=== PATIENT | female | born 1940 | race Caucasian/White ===

== ENCOUNTER 2016-12-22 08:37 | Observation (INO) | payer OTHER ==
[2016-12-22 08:54] LABS: % IMMATURE GRANULYOCYTES 0.5 % (0.0-1.1); ABSOLUTE IMMATURE GRANULOCYTES 0.05 10^3/uL (0.00-0.10); ADD DIFF? NO; ADD MORPH? NO; ADD SCAN? NO; ATYPICAL LYMPHOCYTE FLAG 0 (0-99); FRAGMENT RBC FLAG 0 (0-99); HEMATOCRIT 36.5 % (38.0-47.0); HEMOGLOBIN 11.7 g/dL (12.6-16.3); LEFT SHIFT FLG 10 (0-99); LIPEMIA HEMOLYSIS FLAG 80 (0-99); MEAN CELL HEMOGLOBIN 29.3 pg (27.9-34.1); MEAN CELL HEMOGLOBIN CONCENTR. 32.1 g/dL (32.4-36.7); MEAN CELL VOLUME 91.5 fL (81.5-99.8); MEAN PLATELET VOLUME 9.4 fL (8.7-11.7); PLATELET CLUMPS FLAG 10 (0-99); PLATELET COUNT 247 10^3/uL (150-400); RED BLOOD CELL COUNT 3.99 10^6/uL (4.18-5.33); RED CELL DISTRIBUTION WIDTH 13.6 % (11.5-15.2)
--- NOTE | 2016-12-22 09:00 | CPEKG ---
Heart Rate: 88 RR Interval: 682 P-R Interval: 264 QRSD Interval: 84 QT Interval: 360 QTC Interval: 436 P [place]: 53 QRS [place]: 8 T Wave [place]: 72 EKG Severity - ABNORMAL ECG - EKG Impression: SINUS RHYTHM EKG Impression: ATRIAL PREMATURE COMPLEX EKG Impression: FIRST DEGREE AV BLOCK Electronically Signed By: Karl Pederson 22-Dec-2016 12:12:57
--- NOTE | 2016-12-22 09:01 | EDPHY ---
H & P Stated Complaint: R Hip Pain Time Seen by Provider: 12/22/16 08:59 HPI/ROS: CHIEF COMPLAINT: Right hip pain HISTORY OF PRESENT ILLNESS: The patient presents to the ED with complaints of right hip pain. The patient reportedly was bothered by the pain in the afternoon yesterday. She reportedly had 3 episodes in the evening where she reportedly was on the floor. She is uncertain whether she fell. Since that time she has had ongoing right posterior gluteal pain. She is having difficulty with ambulation. The patient does have a history of chronic pain and has a spinal stimulator. The patient denies any headache, head trauma, anticoagulant use or additional traumatic injury. The patient's pain is located in the right posterior gluteal area and is worsened with palpation and movement. REVIEW OF SYSTEMS: A comprehensive 10 point review of systems is otherwise negative aside from elements mentioned in the history of present illness. Source: Patient Exam Limitations: No limitations - Personal History Tetanus Vaccine Date: 2008 - Medical/Surgical History Hx Asthma: No Hx Chronic Respiratory Disease: Yes Hx Diabetes: No Hx Cardiac Disease: No Hx Renal Disease: No Hx Cirrhosis: No Hx Alcoholism: No Hx HIV/AIDS: No Hx Splenectomy or Spleen Trauma: No Other PMH: lung disease, chronic back pain2 depression - Social History Smoking Status: Former smoker - Physical Exam Exam: General Appearance: Alert, no distress, mildly obese female Eyes: Pupils equal and round no pallor or injection ENT, Mouth: Mucous membranes moist Respiratory: There are no retractions, lungs are clear to auscultation Cardiovascular: Regular rate and rhythm Gastrointestinal: Abdomen is soft and nontender, no masses, bowel sounds normal Neurological: A&O, normal motor function, normal sensory exam, normal cranial nerves Skin: Warm and dry, no rashes Musculoskeletal: Neck is supple nontender Extremities: Tenderness to palpation right gluteal area, I am able to range her right hip passively without significant discomfort Constitutional: Initial Vital Signs Temperature (C) 37.2 C 12/22/16 08:48 Heart Rate 89 12/22/16 08:48 Respiratory Rate 18 12/22/16 08:48 Blood Pressure 117/72 12/22/16 08:48 O2 Sat (%) 91 L 12/22/16 08:48 O2 Delivery Mode Nasal Cannula O2 (L/minute) 2 Allergies/Adverse Reactions: morphine Allergy (Intermediate, Verified 11/06/12 02:13) Vomiting tramadol [Tramadol] Allergy (Unknown, Verified 04/12/12 02:13) Unknown Home Medications: Medication Instructions Recorded Aspirin [Aspirin 81mg (*)] 81 mg PO DAILY 04/12/12 Cholecalciferol Vit D3 [Vitamin D3 1,000 units PO DAILY 04/12/12 (*)] Hydrochlorothiazide [HCTZ (*)] 25 mg PO DAILY 04/12/12 Lisinopril [Zestril 10 mg (*)] 10 mg PO DAILY 04/12/12 Multivitamins [Multivitamin (*)] 1 each PO DAILY 04/12/12 [place]-3 Fatty Acids [Fish Oil 1000 1,000 mg PO DAILY 04/12/12 mg (*)] ALPRAZolam [Xanax 1 MG (*)] 1 mg PO Q8 PRN #90 tab 04/27/12 LORazepam [Ativan (*)] 1 mg PO 0700,1230,1700,2100 #120 04/27/12 tab Sertraline HCl [Zoloft 100mg (*)] 200 mg PO HS #60 tab 04/27/12 Zolpidem Tartrate [Ambien 5MG (*)] 10 mg PO HS #10 tab 04/27/12 hydrOXYzine HCL [Vistaril 25MG] 25 mg PO HS #10 tab 04/27/12 oxyCODONE CR [Oxycontin] 10 mg PO TID #30 tab 04/27/12 oxyCODONE IR [Oxycodone Ir (*)] 10 mg PO Q6 PRN #10 tab 04/27/12 Amoxicillin 500 mg PO TID 7 Days 03/22/15 MYCOPHENOLATE MOFETIL 03/22/15 Ondansetron Odt [Zofran Odt] 4 mg PO Q4PRN PRN #4 tab 03/22/15 Medical Decision Making - Diagnostics EKG Interpretation: EKG: Complete interpretation has been separately recorded in the [facility] archive. Summary impression: Sinus rhythm, first-degree AV block, single PAC Imaging Results: Imaging Impressions Chest X-Ray 12/22/16 08:47 Impression: 1. Age indeterminate right seventh rib fracture is new since August 2015. 2. No effusion or pneumothorax. Hip X-Ray 12/22/16 08:47 Impression: No displaced fracture identified. Pelvis CT 12/22/16 09:55 Impression: 1. No fracture identified. 2. Sigmoid diverticulosis. 3. Moderate to severe left L4-L5 neural foraminal stenosis. 4. Additional findings as above. Findings discussed with Karl Pederson on December 22, 2016 at 10:30 a.m. ED Course/Re-evaluation: The patient presents to the ED with complaints of acute right hip and gluteal pain following a likely mechanical fall from her bed last night. The patient did not strike her head or lose consciousness. In the emergency department she has a normal neurologic examination without any focal cervical spine tenderness to palpation. The patient was taken for plain film of her right hip which demonstrated no obvious fracture. Given her ongoing pain and discomfort a CT scan was performed which also demonstrates no obvious fracture. The patient did receive IV pain medications. She had serial examinations x3 over a 2 hour period by myself in the ED. The patient continues to have exquisite pain with active range of motion which I feel is most likely consistent with a myofascial strain involving her right hip. She is unable to safely ambulate. She will require admission to the hospital. Consultation is made with the hospitalist service at 11:00 a.m.. The patient will be admitted by Dr. Reji Quan. Differential Diagnosis: Differential diagnosis considered includes hip fracture, acetabular fracture, neurovascular injury, retroperitoneal hematoma, gluteal hematoma - Data Points Laboratory Results: Laboratory Results 12/22/16 08:49 12/22/16 08:49 12/22/16 12/22/16 12/22/16 08:49 08:49 08:49 WBC 10.40 10^3/uL H 10^3/uL (3.80-9.50) RBC 3.99 10^6/uL L 10^6/uL (4.18-5.33) Hgb 11.7 g/dL L g/dL (12.6-16.3) Hct 36.5 % L % (38.0-47.0) MCV 91.5 fL fL (81.5-99.8) MCH 29.3 pg pg (27.9-34.1) MCHC 32.1 g/dL L g/dL (32.4-36.7) RDW 13.6 % % (11.5-15.2) Plt Count 247 10^3/uL 10^3/uL (150-400) MPV 9.4 fL fL (8.7-11.7) Neut % (Auto) 77.8 % H % (39.3-74.2) Lymph % (Auto) 8.3 % L % (15.0-45.0) [place] % (Auto) 12.6 % % (4.5-13.0) Eos % (Auto) 0.6 % % (0.6-7.6) Baso % (Auto) 0.2 % L % (0.3-1.7) Nucleat RBC Rel Count 0.0 % % (0.0-0.2) Absolute Neuts (auto) 8.10 10^3/uL H 10^3/uL (1.70-6.50) Absolute Lymphs (auto) 0.86 10^3/uL L 10^3/uL (1.00-3.00) Absolute Monos (auto) 1.31 10^3/uL H 10^3/uL (0.30-0.80) Absolute Eos (auto) 0.06 10^3/uL 10^3/uL (0.03-0.40) Absolute Basos (auto) 0.02 10^3/uL 10^3/uL (0.02-0.10) Absolute Nucleated RBC 0.00 10^3/uL 10^3/uL (0-0.01) Immature Gran % 0.5 % % (0.0-1.1) Immature Gran # 0.05 10^3/uL 10^3/uL (0.00-0.10) PT 13.5 SEC SEC (12.0-15.0) INR 1.04 (0.83-1.16) Sodium 139 mEq/L mEq/L (134-144) Potassium 3.9 mEq/L mEq/L (3.5-5.2) Chloride 105 mEq/L mEq/L (97-110) Carbon Dioxide 21 mEq/l L mEq/l (22-31) Anion Gap 13 mEq/L mEq/L (8-16) BUN 16 mg/dL mg/dL (7-23) Creatinine 0.9 mg/dL mg/dL (0.6-1.0) Estimated GFR > 60 Glucose 109 mg/dL H mg/dL (70-100) Calcium 9.0 mg/dL mg/dL (8.5-10.4) Medications Given: Discontinued Medications Hydromorphone HCl (Dilaudid) 0.5 mg IVP EDNOW ONE Stop: 12/22/16 09:22 Last Admin: 12/22/16 09:22 Dose: 0.5 mg Departure - Departure Disposition: [facility] Inpatient Acute Clinical Impression: Strain of right hip Condition: Good Referrals: Patient,NotPresent [Primary Care Provider] - As per Instructions
[2016-12-22 09:08] LABS: ANION GAP 13 mEq/L (8-16); CARBON DIOXIDE 21 mEq/l (22-31); CHLORIDE 105 mEq/L (97-110); CREATININE 0.9 mg/dL (0.6-1.0); GLOMERULAR FILTRATION RATE > 60; GLUCOSE 109 mg/dL (70-100); POTASSIUM 3.9 mEq/L (3.5-5.2); SODIUM 139 mEq/L (134-144)
[2016-12-22] MEDS ORDERED: HYDROmorphONE/DILAUDID 1 MG/ML SYR ONE (09:17)
[2016-12-22 09:19] LABS: INR 1.04 (0.83-1.16); PROTIME(PATIENT) 13.5 SEC (12.0-15.0)
[2016-12-22] MEDS ORDERED: HYDROmorphONE/DILAUDID 1 MG/ML SYR IVP ONE (09:21)
[2016-12-22] MEDS ORDERED: ONDANSETRON DISINTEGRATING 4 MG TAB PO PRN ×2 (13:40→13:43)
[2016-12-22] MEDS ORDERED: ONDANSETRON 4 MG/2 ML VIAL IVP PRN (13:43)
--- NOTE | 2016-12-22 14:37 | GHP ---
[f rep st] HISTORY AND PHYSICAL DATE OF ADMISSION: 12/22/2016 CHIEF COMPLAINT: Right gluteal and hip pain. HISTORY OF PRESENT ILLNESS: Fabby Man is a 76-year-old female with a past medical history of gait instability with a fall in 2011, serotonin syndrome, lumbar disk surgery and interstitial lung disease who presented to the emergency room with complaints of pain, mainly in the right gluteal area. The pain started yesterday afternoon. She had 3 falls that occurred over the past 24 hours. She attributes it that she lost her balance due to the pain. She was walking to her bed and hit the corner of the bed. She hit the left side of her head. She did not lose any consciousness. She describes lying on the floor and crying in pain. She had tried some leftover hydrocodone from her previous surgery as well as Tylenol and ice, but none of these alleviated her symptoms. During my interview today, her pain is persisting. I am able to reproduce it with pressing on the right gluteal area. For the past 2 months she has been having increasing nausea and diarrhea. She attributes it to a new medication she was started on for her interstitial lung disease. She also notes that she has lost approximately 30 pounds since June , but this was intended weight loss. She had been on Weight [employer]. She has no complaints of chest pain. She has chronic shortness of breath due to her interstitial lung disease. She has no urinary or stool incontinence. She has no fever. No chills. During my interview, she is comfortable as long as she does not move very much because the pain increases. PAST MEDICAL HISTORY: 1. Chronic back pain with a pain stimulator in place. 2. History of gait instability with a fall in 2001. 3. Rib fractures noted on the right side. 4. Serotonin syndrome in January of 2012. 5. Major depressive disorder. 6. History of opioid and benzodiazepine dependence. 7. Hypertension. 8. Peripheral neuropathy. 9. Hyperlipidemia. 10. History of a transient ischemic attack. 11. Anxiety. 12. Interstitial lung disease. Is seen at [facility] by Dr. John Piedra. PAST SURGICAL HISTORY: 1. Hernia repair. 2. Two sections. 3. Lumbar disk surgery. FAMILY HISTORY: Her parents are . SOCIAL HISTORY: She has 2 children. She has a daughter locally and a son in the [place] area. She is . She briefly smoked for approximately 6 years when she was in her late 20s and early 30s. She drinks approximately 3 alcoholic drinks a week. 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 ALLERGIES: Morphine causes nausea but not a true allergy. HOME MEDICATIONS: 1. Trazodone 100 mg p.o. at bedtime. 2. Wellbutrin 150 mg daily. 3. Paxil 20 mg daily. 4. Zofran ODT 4 mg daily p.r.n. 5. Fish oil 1000 mg daily. 6. Multivitamins 1 tab daily. 7. Zestril 10 mg daily at noon. 8. Ativan 1 mg p.o. daily. 9. Herbal supplements 1 tab daily. 10. Vitamin D 3000 units daily. 11. Aspirin 81 mg daily. 12. Xanax 1 mg p.o. q.h.s. REVIEW OF SYSTEMS: A 10-point review of system was performed and was negative other than pertinent positives in HPI and past medical history. PHYSICAL EXAM: GENERAL: Fabby Man is a 76-year-old female who appears uncomfortable during my interview. VITAL SIGNS: Blood pressure is 133/80, heart rate is 95, respiratory rate is 15, O2 sats on room air are 91%, temperature is 36.7 Celsius. EYES: Pupils are equal and reactive EOMs are intact. No conjunctival injection noted. ENT: Normal ears. Hearing intact. Normal lips, teeth. Oral airway is moist. NECK: Trachea is midline. CARDIOVASCULAR: Regular rate and rhythm. No murmurs, rubs, or gallops noted. CHEST: Lungs normal respiratory effort. Clear without wheezing, rales, rhonchi. ABDOMEN: Soft, nontender. SKIN: No rashes, ulcer. MUSCULOSKELETAL : She is unable to do a straight leg lift with her right leg but is able to do this with her left leg. She has equal upper leg strength. She has frequent twitching to her bilateral lower extremities. PSYCHIATRIC: She is alert and oriented. NEURO: Normal mood and affect. Normal judgment, insight, and normal memory. LABORATORY DATA: CBC shows a white blood cell count of 10.4, hemoglobin 11.7, hematocrit 36.5, platelet count of 247. Coags: INR is 1.04. Chemistry shows a sodium of 139, potassium 3.9, chloride of 105, CO2 of 21, BUN 16 creatinine 0.9, glucose of 109. IMAGIN. A chest x-ray was performed which showed aging indeterminate right 7th rib fracture is new since August of 2015. She has no effusion or pneumothorax. 2. ECG was performed which showed sinus rhythm with a first degree AV block. 3. Hip x-ray on the right side shows no displaced fracture identified. 4. A CT of the pelvis shows no fracture identified. She has sigmoid diverticulitis. She has moderate to severe left L4-L5 neural foraminal stenosis. I reviewed her care with Dr. Ezio Pederson, ER physician. ASSESSMENT/PLAN: 1. Right gluteal pain, especially noted in the piriformis area. She has moderate to severe left L4-L5 neuroforaminal stenosis which does not correlate to the pain being on the right side. Will get x-rays performed for further evaluation. At this time, she cannot have an MRI because she has a pain stimulator in place. Could consider getting a CT scan if pain is ongoing. Will do a trial of gabapentin, Lidoderm patches, ibuprofen and ice. Will have physical therapy and occupational therapy. 2. Gait instability with multiple falls. Again, we will have Physical Therapy and Occupational Therapy see her. Will check a CPK just in case she has any type of rhabdomyolysis. 3. Depression with anxiety. This is well managed. Will resume her home medications. 4. Hypertension. On Lisinopril. 5. History of opioid narcotic use. Will avoid using these medications. 6. Interstitial lung disease. She is seen at [facility]. Further followup with them. 7. Deep venous thrombosis prophylaxis. At this time. We will hold low molecular weight heparin in case she gets any interventions. 8. Length of stay. She will likely require less than a 2 midnight stay which will make her observation status. 9. Code status is do not resuscitate. /[id number]/MODL MTDD
[2016-12-22] MEDS: buPROPion XL 150 MG TAB PO SCH (14:45)
[2016-12-22] MEDS: IBUPROFEN 200 MG TAB PO PRN (14:45)
[2016-12-22] MEDS: LIDOCAINE 5% 1 EA PATCH TD SCH (14:46)
[2016-12-22] MEDS: GABAPENTIN 100 MG CAP PO SCH ×2 (14:46→21:15)
[2016-12-22] MEDS: CHOLECALCIFEROL VIT D3 1,000 UNITS TAB PO SCH (14:49)
[2016-12-22] MEDS: LISINOPRIL 10 MG TAB PO SCH (14:49)
[2016-12-22] MEDS: MULTIVITAMINS 1 EACH TAB PO SCH (14:50)
[2016-12-22] MEDS: OMEGA-3 FATTY ACIDS 1,000 MG CAP PO SCH (14:50)
[2016-12-22] MEDS: PARoxetine HCL 20 MG TAB PO SCH (15:04)
[2016-12-22] MEDS: PATCH REMOVAL 1 EA PATCH TD SCH (21:15)
[2016-12-22] MEDS: ALPRAZolam 1 MG TAB PO PRN (21:18)
[2016-12-23] MEDS ORDERED: NS 1,000 ML IV ONE (00:15)
[2016-12-23] MEDS ORDERED: LORazepam 1 MG TAB PO SCH (09:00)
[2016-12-23] MEDS ORDERED: Herbals/Supplements -Info Only PO SCH (09:00)
[2016-12-23] MEDS: IBUPROFEN 200 MG TAB PO PRN ×3 (09:33→22:29)
[2016-12-23] MEDS: GABAPENTIN 100 MG CAP PO SCH ×3 (09:34→22:30)
[2016-12-23] MEDS: ACETAMINOPHEN 325 MG TAB PO PRN ×3 (09:34→22:27)
[2016-12-23] MEDS: OMEGA-3 FATTY ACIDS 1,000 MG CAP PO SCH (09:35)
[2016-12-23] MEDS: MULTIVITAMINS 1 EACH TAB PO SCH (09:35)
[2016-12-23] MEDS: CHOLECALCIFEROL VIT D3 1,000 UNITS TAB PO SCH (09:35)
[2016-12-23] MEDS: LIDOCAINE 5% 1 EA PATCH TD SCH (09:36)
[2016-12-23] MEDS: PARoxetine HCL 20 MG TAB PO SCH (12:59)
[2016-12-23] MEDS: buPROPion XL 150 MG TAB PO SCH (12:59)
[2016-12-23] MEDS: LISINOPRIL 10 MG TAB PO SCH (13:03)
--- NOTE | 2016-12-23 14:10 | HOSPPROG ---
Hospitalist Progress Note Assessment/Plan: 76 yo F w ILD, chronic back pain w mechanical fall, L gluteal pain fall: mechanical per history denies evening EtOH or intoxicating effect of trazodone films neg for fx continue pt pain: not on narcotics will continue ILD: continue 02 as needed proph: LMWH dispo: likely home in AM Subjective: feels "too weak" to go home. declining SNF. borderline for home, per PT Objective: Vital Signs Temp Pulse Resp BP Pulse Ox 36.7 C 95 13 100/54 L 90 L 12/23/16 11:30 12/23/16 11:30 12/23/16 11:30 12/23/16 13:03 12/23/16 11:30 12/22/16 12/23/16 12/24/16 05:59 05:59 05:59 Intake Total 1000 Balance 1000 PT 13.5 SEC (12.0-15.0) 12/22/16 08:49 INR 1.04 (0.83-1.16) 12/22/16 08:49 - Physical Exam Constitutional: no apparent distress, appears nourished Eyes: PERRL, anicteric sclera Ears, Nose, Mouth, Throat: moist mucous membranes, hearing normal Cardiovascular: regular rate and rhythym, no murmur, rub, or gallop Respiratory: no respiratory distress, no rales or rhonchi Gastrointestinal: normoactive bowel sounds, soft, non-tender abdomen Genitourinary: no bladder fullness, No castellanos in urethra Skin: warm, normal color Musculoskeletal: full muscle strength Neurologic: AAOx3, other (neg R straight leg raise) Psychiatric: interacting appropriately Lymph, Heme, Immunologic: no cervical LAD ICD10 Worksheet Patient Problems: Problems Problem Status Onset ESBL (extended spectrum beta-lactamase) producing bacteria infection Acute ~ Strain of right hip Acute Anxiety Active
[2016-12-23] MEDS: ENOXAPARIN 40 MG/0.4 ML SYR SC SCH (15:04)
[2016-12-23] MEDS: MYCOPHENOLATE MOFETIL 500 MG PO SCH (22:30)
[2016-12-23] MEDS: ALPRAZolam 1 MG TAB PO PRN (22:30)
[2016-12-23] MEDS: PATCH REMOVAL 1 EA PATCH TD SCH (22:36)
[2016-12-24 08:22] VITALS: PULSE 81; RESP 20; TEMP 98.8; O2SAT 92
[2016-12-24] MEDS: OMEGA-3 FATTY ACIDS 1,000 MG CAP PO SCH (08:29)
[2016-12-24] MEDS: LIDOCAINE 5% 1 EA PATCH TD SCH (08:30)
[2016-12-24] MEDS: GABAPENTIN 100 MG CAP PO SCH (08:30)
[2016-12-24] MEDS: ENOXAPARIN 40 MG/0.4 ML SYR SC SCH (08:30)
[2016-12-24] MEDS: MULTIVITAMINS 1 EACH TAB PO SCH (08:31)
[2016-12-24] MEDS: CHOLECALCIFEROL VIT D3 1,000 UNITS TAB PO SCH (08:31)
[2016-12-24] MEDS: MYCOPHENOLATE MOFETIL 500 MG PO SCH (08:34)
--- NOTE | 2016-12-24 10:47 | PDIAF ---
- Diagnosis Diagnosis: fall Code Status: Do Not Resuscitate - Medication Management Discharge Medications: Medications to Continue on Transfer Aspirin [Aspirin 81mg (*)] 81 mg PO DAILY 04/12/12 [Last Taken 12/21/16] Cholecalciferol Vit D3 [Vitamin D3 (*)] 1,000 units PO DAILY 04/12/12 [Last Taken 12/21/16] Lisinopril [Zestril 10 mg (*)] 10 mg PO DAILY@12 04/12/12 [Last Taken 12/21/16] Multivitamins [Multivitamin (*)] 1 each PO DAILY 04/12/12 [Last Taken 12/21/16] [place]-3 Fatty Acids [Fish Oil 1000 mg (*)] 1,000 mg PO DAILY 04/12/12 [Last Taken 12/21/16] ALPRAZolam [Xanax 1 MG (*)] 1 mg PO HS PRN 12/22/16 [Last Taken 12/21/16] Herbals/Supplements -Info Only 1 ea PO DAILY 12/22/16 [Last Taken Unknown] LORazepam [Ativan (*)] 1 mg PO DAILY 12/22/16 [Last Taken 12/21/16] Ondansetron Odt [Zofran Odt 4 mg (*)] 4 mg PO DAILY PRN 12/22/16 [Last Taken Unknown] PARoxetine HCL [Paxil 20mg (*)] 20 mg PO DAILY@12 12/22/16 [Last Taken 12/21/16] buPROPion XL [Wellbutrin 150mg XL] 150 mg PO DAILY@12 12/22/16 [Last Taken 12/21] traZODone [traZODONE 100MG (*)] 100 mg PO HS 12/22/16 [Last Taken 12/21/16] Mycophenolate Mofetil [Cellcept] 1,500 mg PO BID 12/23/16 [Last Taken 12/21/16 21:00] Discharge Medications: Refer to the Discharge Home Medication list for PRN reason. - Orders Services needed: Home Care, Registered Nurse Home Care Face to Face: I certify that this patient was under my care and that I had the required [id number] encounter meeting the encounter requirements on the discharge day. My findings support the fact that the patient is homebound as defined in CMS Chapter 7 Medicare Benefits Manual 30.1.1, The condition of the patient is such that there exists a normal inability to leave home and consequently, leaving home would require a considerable and taxing effort. - Follow Up Care Current Providers and Referrals: Patient,NotPresent [Unknown] - As per Instructions
--- NOTE | 2016-12-24 10:48 | HOSPPROG ---
Hospitalist Progress Note Assessment/Plan: 76 yo F w ILD, chronic back pain w mechanical fall, L gluteal pain fall: mechanical per history denies evening EtOH or intoxicating effect of trazodone films neg for fx continue pt normal neuro exam pain: not on narcotics will continue ILD: continue 02 as needed proph: LMWH dispo: home today > 30 minutes on dc Subjective: afebrile Objective: Vital Signs Temp Pulse Resp BP Pulse Ox 37.1 C 81 20 154/76 H 92 12/24/16 08:00 12/24/16 08:00 12/24/16 08:00 12/24/16 08:00 12/24/16 08:00 12/23/16 12/24/16 12/25/16 05:59 05:59 05:59 Intake Total 1000 350 Balance 1000 350 PT 13.5 SEC (12.0-15.0) 12/22/16 08:49 INR 1.04 (0.83-1.16) 12/22/16 08:49 - Physical Exam Constitutional: no apparent distress, appears nourished Eyes: PERRL, anicteric sclera Ears, Nose, Mouth, Throat: moist mucous membranes, hearing normal Cardiovascular: regular rate and rhythym, no murmur, rub, or gallop Respiratory: no respiratory distress, no rales or rhonchi Gastrointestinal: normoactive bowel sounds, soft, non-tender abdomen Genitourinary: no bladder fullness, No castellanos in urethra Skin: warm, normal color Musculoskeletal: full muscle strength Neurologic: AAOx3 ICD10 Worksheet Patient Problems: Problems Problem Status Onset ESBL (extended spectrum beta-lactamase) producing bacteria infection Acute ~ Strain of right hip Acute Anxiety Active
[2016-12-24] MEDS: buPROPion XL 150 MG TAB PO SCH (11:58)
[2016-12-24] MEDS: LISINOPRIL 10 MG TAB PO SCH (11:58)
[2016-12-24] MEDS: PARoxetine HCL 20 MG TAB PO SCH (11:58)
[2016-12-24 12:36] VITALS: BP 118/79
[2016-12-24] MEDS ORDERED: LORazepam 1 MG TAB PO SCH (21:00)
--- NOTE | 2016-12-24 21:19 | GDS ---
[f rep st] DISCHARGE SUMMARY DISCHARGE DIAGNOSES: 1. Fall. 2. Chronic back pain with stimulator. 3. History of gait instability. Please see admission history and physical by Tiana Bedolla. HOSPITAL COURSE: The patient presented with a fall. She had negative films, including thoracic spi ne x-ray, pelvis CT. She was ambulating with PT and felt to be safe for discharge. She is discharg ed home today. She is discharged home. Home care is established for today. /[id number]/MODL
== END 2016-12-24 13:26 | disposition home or self-care (01) ==
LOC: EDUNIT# → F3N 12:37
PROVIDERS: ADMIT Family Medicine; ATTEND Family Medicine
DX: S76.011A Strain of muscle, fascia and tendon of right hip, initial encounter (principal); W19.XXXA Unspecified fall, initial encounter; Y92.003 Bedroom of unspecified non-institutional (private) residence as the place of occurrence of the external cause; M51.86 Other intervertebral disc disorders, lumbar region; R26.9 Unspecified abnormalities of gait and mobility; J84.9 Interstitial pulmonary disease, unspecified; F41.8 Other specified anxiety disorders; I10 Essential (primary) hypertension; E78.5 Hyperlipidemia, unspecified; G62.9 Polyneuropathy, unspecified; Z96.89 Presence of other specified functional implants
CPT/HCPCS: 71010; 72074; 72110; 72192; 73502; 93005; 96374; 97116; 97161; 97165; 97535; 99285; G0378; G8978; G8979; G8987; J1170; J1650; G8988-GO-CH; G8989-GO-CH

== ENCOUNTER → 2017-02-16 | Outpatient (CLI) | payer OTHER, BC | LOC: BMCIMAGING 16:36 | PROVIDERS: ATTEND Internal Medicine | DX: S32.010A Wedge compression fracture of first lumbar vertebra, initial encounter for closed fracture (principal); W19.XXXA Unspecified fall, initial encounter ==

== ENCOUNTER 2017-02-18 12:04 | Inpatient (IN) | payer OTHER, BC ==
[2017-02-18] MEDS ORDERED: LORazepam 2 MG/ML INJ IVP ONE (12:33)
[2017-02-18 13:17] LABS: ANION GAP 15 mEq/L (8-16); CALCIUM 9.9 mg/dL (8.5-10.4); CARBON DIOXIDE 18 mEq/l (22-31); CHLORIDE 108 mEq/L (97-110); GLOMERULAR FILTRATION RATE 54; GLUCOSE 108 mg/dL (70-100); POTASSIUM 4.2 mEq/L (3.5-5.2); SODIUM 141 mEq/L (134-144)
[2017-02-18 13:20] LABS: % IMMATURE GRANULYOCYTES 0.5 % (0.0-1.1); ABSOLUTE IMMATURE GRANULOCYTES 0.04 10^3/uL (0.00-0.10); ADD DIFF? NO; ADD MORPH? NO; ADD SCAN? NO; ATYPICAL LYMPHOCYTE FLAG 0 (0-99); FRAGMENT RBC FLAG 0 (0-99); HEMATOCRIT 41.2 % (38.0-47.0); HEMOGLOBIN 13.5 g/dL (12.6-16.3); LEFT SHIFT FLG 0 (0-99); LIPEMIA HEMOLYSIS FLAG 80 (0-99); MEAN CELL HEMOGLOBIN 29.9 pg (27.9-34.1); MEAN CELL HEMOGLOBIN CONCENTR. 32.8 g/dL (32.4-36.7); MEAN CELL VOLUME 91.4 fL (81.5-99.8); MEAN PLATELET VOLUME 9.5 fL (8.7-11.7); PLATELET CLUMPS FLAG 0 (0-99); PLATELET COUNT 321 10^3/uL (150-400); RED BLOOD CELL COUNT 4.51 10^6/uL (4.18-5.33); RED CELL DISTRIBUTION WIDTH 13.4 % (11.5-15.2)
--- NOTE | 2017-02-18 13:25 | EDPHY ---
HPI/HX/ROS/PE/MDM Narrative: CHIEF COMPLAINT: Back pain HPI: This patient is a 76 year old female presenting at the request of her neurosurgeon for evaluation of back pain secondary to a fall 02/07/17, eleven days ago. She had a bad fall at her home while the opening door for dog; she lost her balance and fell on her back. She felt severe pain, but did not present for evaluation at that time. Her pain became worse, and she was unable to sleep at night. She visited primary care physician two days ago and x-ray at that time showed a fracture. She presented for evaluation with Dr. Farias, neurosurgeon, and visited his PA today. They recommended she present to the emergency department for myelogram, as she is unable to get an MRI. She is still having considerable pain in her lower back and buttocks, radiating down her right leg. She feels imbalanced. She reports she has had two bad falls in the last year. She denies fever, vomiting, incontinence of bowel or bladder, or other associated symptoms. REVIEW OF SYSTEMS: Aside from elements discussed in the HPI, a comprehensive 10-point review of systems was reviewed and is negative. PMH: Interstitial lung disease, depression, neuropathy SOCIAL HISTORY: Lives in [place]. . PHYSICAL EXAM: General:Patient is alert, in no acute distress. ENT:Eyes are normal to inspection. ENT inspection normal. Neck: Normal inspection. Full range of motion. Respiratory:No respiratory distress. Breath sounds normal bilaterally. Cardiovascular: Regular rate and rhythm. Strong peripheral pulses. Normal cap refill. Abdomen:The abdomen is nontender to palpation. There are no peritoneal signs. There are normal bowel sounds. Back: Normal to inspection. No tenderness to palpation. Skin: Normal color. No rash. Warm and dry. Extremities: Normal appearance. Full range of motion. Neuro: Oriented x3. Normal motor function. Normal sensory function. (Sarmad Weaver) ED Course: 76 year old female presents for evaluation of back pain secondary to a fall and fracture sustained 02/07/17. Plan for labs including CBC, BMP, PTPTT. She is unable to receive an MRI, due to nerve stimulator placement. Plan for myelogram and CT lumbar/cervical spine. Plan to administer 4mg IV Zofran, 1mg IV Ativan, and 1mg IV Dilaudid for symptom relief. 15:[address] Blanco's PA, neurosurgery specialty. 15:10 Patient care transferred to Dr. Gonzalez at shift change. (Sarmad Weaver ) MDM: The patient's myelogram was evaluated by Neurosurgery and they would like to admit and likely perform surgery for her cervical spine tomorrow. (Yfn Gonzalez) - Data Points Imaging Results: Imaging Impressions Cervical Spine CT 02/18/17 12:54 Impression: 1. Multilevel moderate to severe degenerative disk disease from C3-C4 through C6 -C7 and multilevel mild to moderate bilateral facet arthropathy resulting in C4- C5 moderate to severe central canal stenosis and cord compression, and multilevel moderate to severe bilateral neural foraminal stenosis, worse on the right at C3-C4, C4-C5, C5-C6, C6-C7, and on the left at C5-C6. 2. Please see above findings at specific levels. Findings discussed with Emergency Department physician, Dr. Gonzalez, at 1600 hours, 02/18/2017. Final report concurs with initial preliminary interpretation. Lumbar Spine CT 02/18/17 12:54 Impression: 1. L1 mild benign-appearing compression fracture without retropulsion. 2. Multilevel moderate degenerative disk disease worse at L3-L4 and L4-L5 with bilateral facet arthropathy in several levels and L4-L5 and L5-S1 grade 1 anterolisthesis resulting in L4-L5 moderate to severe left neural foraminal stenosis. 3. L1-L2 moderate to severe right neural foraminal stenosis secondary to moderate degenerative disk disease with a right-sided disk bulge and facet arthropathy. 4. Please see above findings at specific levels. Findings and recommendations discussed with Emergency Department physician, Dr. Gonzalez at 1600 hour, 02/18/2017. Final report concurs with initial preliminary interpretation. Myelogram 02/18/17 12:54 Impression: 1. No evidence of complete spinal block. 2. Please see CT myelogram reports. Thoracic Spine CT 02/18/17 12:54 Impression: 1. No evidence of thoracic compression fractures or destructive osseous lesions. 2. Multilevel moderate to severe degenerative disk disease worst from T3-T4 through T5-T6 and from T8-T9 through T10-T11 with multilevel [id number] facet arthropathy. 3. T9-T10: Severe degenerative disk disease and central disk herniation, extrusion, resulting in moderate central canal stenosis, cord compression, and deformity, and moderate to severe bilateral neural foraminal stenosis. Findings discussed with Emergency Department physician, Dr. Gonzalez, at 1600 hours, 02/18/2017. Final report concurs with initial preliminary interpretation. Laboratory Results: Laboratory Results 02/18/17 12:50 02/18/17 12:50 02/18/17 02/18/17 02/18/17 12:50 12:50 12:50 WBC 8.34 10^3/uL 10^3/uL (3.80-9.50) RBC 4.51 10^6/uL 10^6/uL (4.18-5.33) Hgb 13.5 g/dL g/dL (12.6-16.3) Hct 41.2 % % (38.0-47.0) MCV 91.4 fL fL (81.5-99.8) MCH 29.9 pg pg (27.9-34.1) MCHC 32.8 g/dL g/dL (32.4-36.7) RDW 13.4 % % (11.5-15.2) Plt Count 321 10^3/uL 10^3/uL (150-400) MPV 9.5 fL fL (8.7-11.7) Neut % (Auto) 73.4 % % (39.3-74.2) Lymph % (Auto) 16.8 % % (15.0-45.0) [facility] % (Auto) 7.0 % % (4.5-13.0) Eos % (Auto) 1.7 % % (0.6-7.6) Baso % (Auto) 0.6 % % (0.3-1.7) Nucleat RBC Rel Count 0.0 % % (0.0-0.2) Absolute Neuts (auto) 6.13 10^3/uL 10^3/uL (1.70-6.50) Absolute Lymphs (auto) 1.40 10^3/uL 10^3/uL (1.00-3.00) Absolute Monos (auto) 0.58 10^3/uL 10^3/uL (0.30-0.80) Absolute Eos (auto) 0.14 10^3/uL 10^3/uL (0.03-0.40) Absolute Basos (auto) 0.05 10^3/uL 10^3/uL (0.02-0.10) Absolute Nucleated RBC 0.00 10^3/uL 10^3/uL (0-0.01) Immature Gran % 0.5 % % (0.0-1.1) Immature Gran # 0.04 10^3/uL 10^3/uL (0.00-0.10) PT 11.7 SEC L SEC (12.0-15.0) INR 0.87 (0.83-1.16) APTT 26.7 SEC SEC (23.0-38.0) Sodium 141 mEq/L mEq/L (134-144) Potassium 4.2 mEq/L mEq/L (3.5-5.2) Chloride 108 mEq/L mEq/L (97-110) Carbon Dioxide 18 mEq/l L mEq/l (22-31) Anion Gap 15 mEq/L mEq/L (8-16) BUN 25 mg/dL H mg/dL (7-23) Creatinine 1.0 mg/dL mg/dL (0.6-1.0) Estimated GFR 54 Glucose 108 mg/dL H mg/dL (70-100) Calcium 9.9 mg/dL mg/dL (8.5-10.4) Medications Given: Hydromorphone HCl (Dilaudid) 0.2 mg IVP Q2HRS PRN PRN Reason: Pain, Severe Unable to Take PO Stop: 02/28/17 18:23 Last Admin: 02/18/17 20:28 Dose: 0.2 mg Oxycodone HCl (Oxycodone Ir) 5 - 10 mg PO Q3HRS PRN PRN Reason: Pain, Severe Able to Take PO Stop: 02/28/17 18:18 Last Admin: 02/18/17 20:28 Dose: 10 mg Discontinued Medications Hydromorphone HCl (Dilaudid) 1 mg IVP EDNOW ONE Stop: 02/18/17 14:26 Last Admin: 02/18/17 14:35 Dose: 1 mg Hydromorphone HCl (Dilaudid) 1 mg IVP EDNOW ONE Stop: 02/18/17 15:44 Last Admin: 02/18/17 15:50 Dose: 1 mg Lorazepam (Ativan Injection) 1 mg IVP EDNOW ONE Stop: 02/18/17 12:34 Last Admin: 02/18/17 12:47 Dose: 1 mg Methocarbamol (Robaxin) 750 mg PO EDNOW ONE Stop: 02/18/17 18:26 Last Admin: 02/18/17 19:44 Dose: 750 mg Ondansetron HCl (Zofran) 4 mg IVP EDNOW ONE Stop: 02/18/17 14:36 Last Admin: 02/18/17 14:36 Dose: 4 mg General Time Seen by Provider: 02/18/17 13:07 Initial Vital Signs: Initial Vital Signs Temperature (C) 37 C 02/18/17 12:08 Heart Rate 103 H 02/18/17 12:08 Respiratory Rate 18 02/18/17 12:08 Blood Pressure 158/88 H 02/18/17 12:08 O2 Sat (%) 90 L 02/18/17 12:08 O2 Delivery Mode Nasal Cannula O2 (L/minute) 2 Allergies/Adverse Reactions: morphine Allergy (Intermediate, Verified 04/12/12 02:13) Vomiting tramadol [Tramadol] Allergy (Unknown, Verified 04/12/12 02:13) Unknown Home Medications: Medication Instructions Recorded Aspirin [Aspirin 81mg (*)] 81 mg PO DAILY 04/12/12 Cholecalciferol Vit D3 [Vitamin D3 1,000 units PO DAILY 04/12/12 (*)] Lisinopril [Zestril 10 mg (*)] 10 mg PO DAILY@12 04/12/12 Multivitamins [Multivitamin (*)] 1 each PO DAILY 04/12/12 Willard-3 Fatty Acids [Fish Oil 1000 1,000 mg PO DAILY 04/12/12 mg (*)] ALPRAZolam [Xanax 1 MG (*)] 1 mg PO HS PRN 12/22/16 Herbals/Supplements -Info Only 1 ea PO DAILY 12/22/16 LORazepam [Ativan (*)] 1 mg PO DAILY 12/22/16 Ondansetron Odt [Zofran Odt 4 mg 4 mg PO DAILY PRN 12/22/16 (*)] PARoxetine HCL [Paxil 20mg (*)] 20 mg PO DAILY@12 12/22/16 buPROPion XL [Wellbutrin 150mg XL] 150 mg PO DAILY@12 12/22/16 traZODone [traZODONE 100MG (*)] 100 mg PO HS 12/22/16 Mycophenolate Mofetil [Cellcept] 1,500 mg PO BID 12/23/16 Departure - Departure Disposition: [facility] Inpatient Acute Clinical Impression: Back pain Qualifiers: Back pain location: low back pain Chronicity: acute Back pain laterality: bilateral Sciatica presence: with sciatica Sciatica laterality: sciatica laterality unspecified Qualified Code(s): M54.40 - Lumbago with sciatica, unspecified side Condition: Good Report Scribed for: Sarmad Weaver Report Scribed by: Brittany Fontenot Date of Report: 02/18/17 Time of Report: 15:05 Physician Review and Approval Statement: Portions of this note were transcribed by an ED scribe. I personally performed the history, physical exam, and medical decision making; and confirm the accuracy of the information in the transcribed note.
[2017-02-18 13:35] LABS: INR 0.87 (0.83-1.16); PROTIME(PATIENT) 11.7 SEC (12.0-15.0)
[2017-02-18 13:36] LABS: APTT 26.7 SEC (23.0-38.0)
[2017-02-18] MEDS ORDERED: LIDOCAINE 1% 300 MG/30 ML SDV ONE (13:45)
[2017-02-18] MEDS ORDERED: IOPAMIDOL (ISOVUE-M 300) 15 ML VIAL ONE ×2 (13:45→14:45)
[2017-02-18] MEDS ORDERED: HYDROmorphONE/DILAUDID 1 MG/ML INJ IVP ONE ×2 (14:25→15:43)
[2017-02-18] MEDS ORDERED: ONDANSETRON 4 MG/2 ML VIAL ONE (14:27)
[2017-02-18] MEDS ORDERED: ONDANSETRON 4 MG/2 ML VIAL IVP ONE (14:35)
[2017-02-18] MEDS ORDERED: diphenhydrAMINE 25 MG CAP PO PRN (18:19)
[2017-02-18] MEDS ORDERED: ONDANSETRON DISINTEGRATING 4 MG TAB PO PRN (18:19)
[2017-02-18] MEDS ORDERED: ONDANSETRON 4 MG/2 ML VIAL IVP PRN (18:19)
[2017-02-18] MEDS ORDERED: METHOCARBAMOL 750 MG TAB PO ONE (18:25)
--- NOTE | 2017-02-18 18:38 | GCON ---
[f rep st] HISTORY AND PHYSICAL DATE OF CONSULTATION: 02/18/2017 TIME SEEN: The patient was seen and examined in the emergency room at 12:30 p.m. HISTORY OF PRESENT ILLNESS: Patient was seen in the office today and sent to the emergency room for pain control and imaging for her exam findings. The patient is a 76-year-old with a history of a pain stimulator placement 8 years ago with a surgeon in [place]. Her generator is located in her medial left thigh , and she feels her stimulator did very well for her lower back pain for several years. She has not had the need to charge or use her pain stimulator for the last 3 years until recent events. She recently suffered 2 falls with the last one being on February 07. She feels her falls are due to poor balance , and difficulty walking, and trouble with her equilibrium. Since her fall, she has had terrible pain and describes her symptoms as severe pain in her lower back, bilateral buttocks, and extending into her right lateral leg into her foot. She feels that both of her legs are weak, right worse than left, and that she has a wrapping pain around her torso as well. She has some mild tenderness near the L1 region. She has not tried any recent physical therapy or injections. She does take occasional oral steroids for interstitial lung disease, which is managed well by her physicians at [facility]. She does not take any anti-inflammatories. She does rate her low back pain a 10/10 and her leg pain 9/10. She denies any difficulties with her bowel or bladder. REVIEW OF SYSTEMS: A 10-point review of systems was reviewed and negative aside from what was mentioned in the HPI. PAST MEDICAL HISTORY: 1. Interstitial lung disease. 2. Depression. 3. Neuropathy. FAMILY HISTORY: Family history is negative for mother and father for any significant illnesses. SOCIAL HISTORY: The patient does consume alcohol socially. She is a former smoker. Used to smoke a half a pack of cigarettes per day for 5 years, but quit 30 years ago. She does not do any drugs. ALLERGIES: The patient has no known drug allergies. CURRENT MEDICATIONS: 1. Aspirin 81 mg. 2. Vitamin D. 3. Lisinopril. 4. Multivitamins. 5. Gary-3 fatty acids. 6. Xanax. 7. Ativan. 8. Zofran. 9. Paxil. 10. Wellbutrin. 11. Trazodone. 12. CellCept. PHYSICAL EXAM: VITAL SIGNS: The patient's blood pressure is 142/96, heart rate is 71, respiratory rate is 16, oxygen saturation is 95% on 2 L nasal cannula, temperature is 37 degrees Celsius. HEENT: Head is normocephalic and atraumatic. Her pupils are equal, round, reactive to light. EOMI is intact. Full visual prater by confrontation. NECK: Soft without tenderness. She has full range of motion with flexion, extension. RESPIRATORY AND CARDIAC: Deferred. ABDOMEN: Soft and nontender. GENITOURINARY AND RECTAL: Deferred. NEUROLOGIC: The patient is awake, and alert, and oriented to name, place, location, date, time, and situation. Memory is intact to immediate past and current events. Speech no aphasia or dysphonia. Cranial nerves 2-12 are grossly intact. Motor the patient has 5/5 strength in all muscle groups in bilateral upper and lower extremities that includes the deltoids, biceps, triceps, brachioradialis, wrist flexion, extensors, family consumer scientist, intrinsic, fingers, iliopsoas, quadriceps, hamstrings, plantar flexion, dorsiflexion, EHL testing. Her sensation is grossly intact to light touch throughout all dermatomal distributions in bilateral lower extremities. She has negative straight leg raise and negative BELINDA test bilaterally. Her reflexes, her biceps, triceps, and brachioradialis are 2+ out of 4. Her knee jerk and ankle jerks are 4+ with crossed adductor reflexes noted in the bilateral knee. Her toes are downgoing bilaterally. Tejinder sign is negative. Babinski is negative, and there is no evidence of clonus. The patient does have an ataxic unstable gait when asked to perform heel-to-toe walk diagnostics. LABORATORY RESULTS: Platelet count 321, PT is 11.7, INR is 0.78, APTT is 26.7, sodium 141, potassium 4.2, BUN is 25, creatinine 1.0, glucose is 108. CT myelogram performed today of the lumbar spine demonstrates L1 mild benign- appearing compression fracture without retropulsion. She also has multilevel moderate degenerative disk disease, which is worse at C3-4 and C4-5 with bilateral facet arthropathy in several levels, and L4-5 and L5-S1 grade 1 anterolisthesis which results in an L4-5 moderate to severe left neural foraminal stenosis. Thoracic spine CT myelogram performed today demonstrates multilevel moderate to severe advanced degenerative disk disease, which is worse from T3 through T9. At T9-10 she has severe degenerative disc disease and a central disk herniation extrusion, resulting in moderate central canal stenosis with cord compression and deformity, and moderate to severe bilateral neural foraminal stenosis. CT myelogram performed of the cervical spine demonstrates multilevel moderate to severe degenerative disk disease from C3 through C7 and multilevel mild to moderate bilateral facet arthropathy resulting in C4-5 moderate to severe central canal stenosis and cord compression. ASSESSMENT: The patient is a 76-year-old female who was seen in the office today with an acute L1 compression fracture, which was likely from her fall on February 07. Since her fall, she has experienced severe pain in her lower back , down her right lateral leg, and into her bilateral buttocks. X-rays of the lumbar spine demonstrated a mild L1 compression fracture. We will have the patient get fitted for a Jewitt brace for this acute fracture treatment. The patient was myelopathic on exam with crossed adductor reflexes in her bilateral lower extremities, as well as balance issues and ataxic gait. She was sent to the emergency room for pain control and further evaluation of her symptoms. The patient was seen by Dr. Timothy Simpson in the ER as well, who has reviewed all of her imaging, and is recommending an L4-5 intralaminar epidural steroid injection tomorrow with Interventional Radiology at [facility]. We will admit her with our service, and have Interventional Radiology see her tomorrow for an injection. We will also discuss the severity of her cord compression at C4-5, which we would suggest anterior cervical diskectomy and fusion of C4-5 due to the flattening of her spinal cord at that level. We will need to hold her aspirin while she is in the hospital for her upcoming procedures. The patient was seen and examined by myself and Dr. Timothy Simpson in the emergency room on February 18, 2017, at 12:30 p.m. /[id number]/MODL MTDD
[2017-02-18] MEDS ORDERED: METHOCARBAMOL 750 MG TAB ONE (19:05)
[2017-02-18] MEDS: HYDROmorphONE/DILAUDID 1 MG/ML INJ IVP PRN (20:28)
[2017-02-18] MEDS: oxyCODONE IR 5 MG TAB PO PRN (20:28)
[2017-02-19] MEDS: ALPRAZolam 1 MG TAB PO PRN (00:40)
[2017-02-19] MEDS: oxyCODONE IR 5 MG TAB PO PRN ×4 (00:40→19:46)
[2017-02-19] MEDS: NS 1,000 ML IV SCH (00:57)
--- NOTE | 2017-02-19 07:47 | NEUSURGPN ---
Assessment/Plan: 76 yo F s/p fall on 02/07/17 with back pain, L1 compression fx, Lumbar stenosis, Cervical stenosis C45 with myelopathy Plan: -Lumbar KATI today for pain control -Kristel brace when OOB for compression fx -Imaging reviewed with Dr. Simpson. Pt has concerning stenosis at C45 with increased reflexes c/w myelopathy -Have recommended C45 ACDF. Patient is considering her options and risks/ benefits of sx vs no sx were discussed today. Would also consider removing stimulator at time of sx as she does not use it and it precludes her from undergoing MRI. Could also consider L1 kyphoplasty to be done at the same time as the ACDF and stim removal. Sx is tentatively planned for next wednesday -Hold ASA and fish oil in anticipation of surgery -If pt wishes to proceed with sx will require medical clearance -Pain management - continue current regimen -PT/OT -Pt seen and d/w Dr Simpson today -Please call NS with any questions or concerns Subjective: Pt resting in bed, pain is controlled when she rests in bed. Considering her options regarding surgery. Objective: AAOx3 NAD VSS MAEx4 Motor 5/5 BUE/BLE -hoffmans Urinary Catheter in Place: No - Physician Discussed Patient with : Calvin Patient Seen by : [facility] Physical Exam - Vitals, I&O, Labs I and O 02/18/17 02/19/17 02/20/17 05:59 05:59 05:59 Intake Total 687.5 Output Total 200 Balance -200 687.5 Weight 79.379 kg Intake: IV Infused (ml) 687.5 Ns 1,000 ml @ 75 mls/hr 687.5 IV CONT AN Rx#: [id number] Output: Urine (ml) 200 Toilet 200 Other: Number of Voids Toilet 1 Vital Signs Temp Pulse Resp BP Pulse Ox 37.1 C 76 16 141/81 H 85 L 02/19/17 07:30 02/19/17 07:30 02/19/17 07:30 02/19/17 07:30 02/19/17 07:30 ICD10 Worksheet Patient Problems: Problems Problem Status Onset Back pain Acute Anxiety Active ESBL (extended spectrum beta-lactamase) producing bacteria infection Acute ~ Strain of right hip Acute
[2017-02-19] MEDS ORDERED: NON-FORMULARY NEW DRUG (Mycophenolate Mofetil [Cellcept] 1,500 MG) PO SCH (09:00)
[2017-02-19] MEDS ORDERED: MYCOPHENOLATE MOFETIL 250 MG CAP PO SCH (09:30)
[2017-02-19] MEDS: ACETAMINOPHEN 325 MG TAB PO PRN ×3 (10:43→19:45)
--- NOTE | 2017-02-19 11:46 | ASMTCMCOM ---
CM Note CM Note Notes: Patient scheduled for surgery next Wednesday. dishcarged needs to be determined after surgery. CM to follow. Date Signed: 02/19/2017 11:45 AM Electronically Signed By:Maria A Kaur RN
[2017-02-19] MEDS ORDERED: fentaNYL 100 MCG/2 ML INJ ONE ×2 (11:48→12:03)
[2017-02-19] MEDS ORDERED: MIDAZOLAM 2 MG/2 ML VIAL ONE ×2 (11:49→12:03)
[2017-02-19] MEDS ORDERED: TRIAMCINOLONE ACETONIDE 200 MG/5 ML MDV IM ONE (12:24)
[2017-02-19] MEDS ORDERED: IOPAMIDOL (ISOVUE-M 300) 15 ML VIAL ONE (12:24)
[2017-02-19] MEDS ORDERED: LIDOCAINE 1% 300 MG/30 ML SDV ONE (12:25)
--- NOTE | 2017-02-19 12:54 | POSTOPPROG ---
Post Op Note Date of Operation: 02/19/17 Surgeon: Elisha Paul Anesthesia: IV Sedation Pre-op Diagnosis: back pain Post-op Diagnosis: same Indication: severe pain Procedure: Caudal KATI, L2-3 KATI Findings: coverage entire lumbar spine Inf/Abcess present in the surg proc area at time of surgery?: No Depth: Superfical (Skin SQ) EBL: Minimal Complications: None
[2017-02-19] MEDS: buPROPion XL 150 MG TAB PO SCH (13:40)
[2017-02-19] MEDS: LISINOPRIL 10 MG TAB PO SCH (13:41)
[2017-02-19] MEDS: PARoxetine HCL 20 MG TAB PO SCH (13:41)
[2017-02-19] MEDS ORDERED: FLU VACC QS 2017-18 (3YR+)/PF 0.5 ML SYR (FLUARIX QUAD) IM ONE (13:51)
[2017-02-19] MEDS: LORazepam 1 MG TAB PO PRN (21:45)
[2017-02-19] MEDS: traZODone 100 MG TAB PO SCH (21:46)
[2017-02-20] MEDS: oxyCODONE IR 5 MG TAB PO PRN ×3 (01:59→22:23)
[2017-02-20] MEDS: ACETAMINOPHEN 325 MG TAB PO PRN ×3 (02:00→22:23)
--- NOTE | 2017-02-20 08:14 | NEUSURGPN ---
Assessment/Plan: 76 yo F s/p fall on 02/07/17 with back pain, L1 compression fx, Lumbar stenosis, Cervical stenosis C45 with myelopathy Plan: -Lumbar KATI yesterday for pain control. Patient still with soem right sided leg pain but this is improved slightly today. Discussed it can take several days to notice full effect of KATI -Kristel brace when OOB for compression fx Pt has concerning stenosis at C45 with increased reflexes c/w myelopathy. Recommended C45 ACDF. Discussed risks, benefits and alternatives of surgery today. Would also consider removing stimulator at time of sx as she does not use it and it precludes her from undergoing MRI. Could also consider L1 kyphoplasty to be done at the same time as the ACDF and stim removal. Sx is tentatively planned for next wednesday -Hold ASA and fish oil in anticipation of surgery -If pt wishes to proceed with sx will require medical clearance -Pain management - continue current regimen -PT/OT -Please call NS with any questions or concerns Subjective: right gluteal pain and mid back pain Objective: NAD A&Ox3 MAEx4 5/5 and equal in BUE and BLE. - Physician Discussed Patient with : [facility] Physical Exam - Vitals, I&O, Labs I and O 02/19/17 02/20/17 02/21/17 05:59 05:59 05:59 Intake Total 687.5 Output Total 200 Balance -200 687.5 Weight 79.379 kg Intake: IV Infused (ml) 687.5 Ns 1,000 ml @ 75 mls/hr 687.5 IV CONT AN Rx#: [id number] Output: Urine (ml) 200 Toilet 200 Other: Intake Quantity Yes Sufficient Number of Voids Toilet 1 Vital Signs Temp Pulse Resp BP Pulse Ox 36.5 C 75 16 154/91 H 92 02/20/17 04:00 02/20/17 04:00 02/20/17 04:00 02/20/17 04:00 02/20/17 04:00 ICD10 Worksheet Patient Problems: Problems Problem Status Onset Back pain Acute Anxiety Active ESBL (extended spectrum beta-lactamase) producing bacteria infection Acute ~ Strain of right hip Acute
[2017-02-20] MEDS ORDERED: ONDANSETRON DISINTEGRATING 4 MG TAB PO PRN (10:34)
[2017-02-20] MEDS: MYCOPHENOLATE MOFETIL 250 MG CAP PO SCH (10:54)
[2017-02-20] MEDS: lamoTRIgine 100 MG TAB PO SCH (11:47)
[2017-02-20] MEDS: LISINOPRIL 10 MG TAB PO SCH (11:47)
[2017-02-20] MEDS: PARoxetine HCL 20 MG TAB PO SCH (11:48)
[2017-02-20] MEDS: buPROPion XL 150 MG TAB PO SCH (11:48)
[2017-02-20] MEDS ORDERED: BISACODYL 10 MG SUPP PR PRN (11:57)
[2017-02-20] MEDS ORDERED: POLYETHYLENE GLYCOL 3350 17 GM PKT PO PRN (11:57)
[2017-02-20] MEDS ORDERED: MAGNESIUM HYDROXIDE 30 ML UDCUP PO PRN (11:57)
[2017-02-20] MEDS ORDERED: LACTULOSE 20 GM/30 ML UDCUP PO PRN (11:57)
[2017-02-20] MEDS: SENNOSIDES/DOCUSATE SODIUM TAB PO SCH ×2 (14:21→20:11)
--- NOTE | 2017-02-20 15:32 | PDGENHP ---
History and Physical - Chief Complaint Acute buttock pain - History of Present Illness primary care provider: Dr. Sana Hendricks Primary lang interpreter: Dr. John Piedra at [facility] Primary psychiatrist: Dr. Sullivan HPI: 76-year-old female presenting with acute buttock pain characterized as severe, located in her right buttock, associated with bilateral lower extremity weakness, gait imbalance, onset of symptoms approximately 2 weeks ago and duration persistent thereafter. The symptoms have occurred in this context of approximately 2 months of associated gait imbalance and recurrent falls. She presented and was hospitalized in December for her 1st fall, and then in February for her 2nd fall. She reports that she has been falling secondary to gait imbalance. She has also had some associated generalized tremulousness, most notable during the past couple months. She has adjusted her mental health medications, discontinuing mirtazepine, and continuing daytime ativan and HS xanax, which she has been on for years, previously prescribed by Dr. Avalos. Prior to her injuries, she had been able to ambulate up flights of stairs and not get chest pain or exertional shortness of breath. Since her presentation, she has received a lumbar KATI, and she believes that the pain has been somewhat alleviated. History Information - Allergies/Home Medication List Allergies/Adverse Reactions: morphine Allergy (Intermediate, Verified 04/12/12 02:13) Vomiting tramadol [Tramadol] Allergy (Unknown, Verified 04/12/12 02:13) Unknown Home Medications: Aspirin [Aspirin 81mg (*)] 81 mg PO DAILY 04/12/12 [Last Taken 02/17/17] Cholecalciferol Vit D3 [Vitamin D3 (*)] 1,000 units PO DAILY 04/12/12 [Last Taken 02/17/17] Lisinopril [Zestril 10 mg (*)] 10 mg PO DAILY@12 04/12/12 [Last Taken 02/17/17] Multivitamins [Multivitamin (*)] 1 each PO DAILY 04/12/12 [Last Taken 02/17/17] Chadwick-3 Fatty Acids [Fish Oil 1000 mg (*)] 1,000 mg PO DAILY 04/12/12 [Last Taken 02/17/17] ALPRAZolam [Xanax 1 MG (*)] 1 mg PO HS PRN 12/22/16 [Last Taken 02/17/17] LORazepam [Ativan (*)] 1 mg PO DAILY 12/22/16 [Last Taken 02/17/17] Ondansetron Odt [Zofran Odt 4 mg (*)] 4 mg PO DAILY PRN 12/22/16 [Last Taken ] PARoxetine HCL [Paxil 20mg (*)] 20 mg PO DAILY@12 12/22/16 [Last Taken 02/17/17] buPROPion XL [Wellbutrin 150mg XL] 300 mg PO DAILY@12/22/16 [Last Taken 02/17] traZODone [traZODONE 100MG (*)] 100 mg PO HS 12/22/16 [Last Taken 02/17/17] Mycophenolate Mofetil [Cellcept] 1,500 mg PO DAILY 12/23/16 [Last Taken 02/17/17 ] lamoTRIgine [LamICTAL 100 MG (*)] 100 mg PO DAILY 02/19/17 [Last Taken Unknown] I have personally reviewed and updated: family history, medical history, social history, surgical history - Past Medical History hypertension, hyperlipidemia, osteoporosis (per report on recent DEXA) Additional medical history: depression and anxiety w/ chronic benzodiazepine dependency. interstitial lung disease. peripheral neuropathy. serotonin syndrome 2011 - Surgical History Additional surgical history: lumbar KATI. lumbar disc surg. pain stimulator. . hernia - Family History Additional family history: mother w/ TIA, no VTE - Social History Smoking Status: Former smoker Alcohol Use: Occasionally Drug Use: None Additional social history: lives independently Review of Systems Review of Systems: ROS: 10pt was reviewed & negative except for what was stated in HPI & below Constitutional: Reports: weakness Muscolosketal: Reports: back pain Neurological: Reports: anxiety, depressed, tremors Physical Exam Physical Exam: Temp Pulse Resp BP Pulse Ox 36.8 C 82 16 143/89 H 94 02/20/17 08:00 02/20/17 12:19 02/20/17 08:00 02/20/17 12:19 02/20/17 08:00 O2 (L/minute) 2 Constitutional: no apparent distress, chronically ill appearing, obese, uncomfortable Eyes: PERRL, anicteric sclera, EOMI Ears, Nose, Mouth, Throat: moist mucous membranes, hearing normal, ears appear normal, no oral mucosal ulcers Cardiovascular: regular rate and rhythym, no murmur, rub, or gallop, No edema Respiratory: no respiratory distress, no rales or rhonchi, clear to auscultation Gastrointestinal: normoactive bowel sounds, soft, non-tender abdomen, no palpable masses Musculoskeletal: other (tenderness R buttock, lower back, motor 5/5 bilat LE) Neurologic: AAOx3, sensation intact bilaterally, other (intermittently tremulous ), No weakness, No asterixes, No facial droop Psychiatric: not encephalopathic, thought process linear, anxious, depressed Lab Data & Imaging Review 02/18/17 12:50 02/18/17 12:50 WBC 8.34 10^3/uL (3.80-9.50) 02/18/17 12:50 RBC 4.51 10^6/uL (4.18-5.33) 02/18/17 12:50 Hgb 13.5 g/dL (12.6-16.3) 02/18/17 12:50 Hct 41.2 % (38.0-47.0) 02/18/17 12:50 MCV 91.4 fL (81.5-99.8) 02/18/17 12:50 MCH 29.9 pg (27.9-34.1) 02/18/17 12:50 MCHC 32.8 g/dL (32.4-36.7) 02/18/17 12:50 RDW 13.4 % (11.5-15.2) 02/18/17 12:50 Plt Count 321 10^3/uL (150-400) 02/18/17 12:50 MPV 9.5 fL (8.7-11.7) 02/18/17 12:50 Neut % (Auto) 73.4 % (39.3-74.2) 02/18/17 12:50 Lymph % (Auto) 16.8 % (15.0-45.0) 02/18/17 12:50 [place] % (Auto) 7.0 % (4.5-13.0) 02/18/17 12:50 Eos % (Auto) 1.7 % (0.6-7.6) 02/18/17 12:50 Baso % (Auto) 0.6 % (0.3-1.7) 02/18/17 12:50 Nucleat RBC Rel Count 0.0 % (0.0-0.2) 02/18/17 12:50 Absolute Neuts (auto) 6.13 10^3/uL (1.70-6.50) 02/18/17 12:50 Absolute Lymphs (auto) 1.40 10^3/uL (1.00-3.00) 02/18/17 12:50 Absolute Monos (auto) 0.58 10^3/uL (0.30-0.80) 02/18/17 12:50 Absolute Eos (auto) 0.14 10^3/uL (0.03-0.40) 02/18/17 12:50 Absolute Basos (auto) 0.05 10^3/uL (0.02-0.10) 02/18/17 12:50 Absolute Nucleated RBC 0.00 10^3/uL (0-0.01) 02/18/17 12:50 Immature Gran % 0.5 % (0.0-1.1) 02/18/17 12:50 Immature Gran # 0.04 10^3/uL (0.00-0.10) 02/18/17 12:50 PT 11.7 SEC (12.0-15.0) L 02/18/17 12:50 INR 0.87 (0.83-1.16) 02/18/17 12:50 APTT 26.7 SEC (23.0-38.0) 02/18/17 12:50 Sodium 141 mEq/L (134-144) 02/18/17 12:50 Potassium 4.2 mEq/L (3.5-5.2) 02/18/17 12:50 Chloride 108 mEq/L (97-110) 02/18/17 12:50 Carbon Dioxide 18 mEq/l (22-31) L 02/18/17 12:50 Anion Gap 15 mEq/L (8-16) 02/18/17 12:50 BUN 25 mg/dL (7-23) H 02/18/17 12:50 Creatinine 1.0 mg/dL (0.6-1.0) 02/18/17 12:50 Estimated GFR 54 02/18/17 12:50 Glucose 108 mg/dL (70-100) H 02/18/17 12:50 Calcium 9.9 mg/dL (8.5-10.4) 02/18/17 12:50 Visualized and Interpreted EKG results: Yes EKG Interpretation: Positive for: other (NSR w/ Q in III, 1st degree AVB) Assessment & Plan Assessment: 76-year-old female presents with acute buttock and back pain secondary to L1 compression fracture, complicated by severe C4-C5 stenosis with myelopathy Plan: 1. Lumbar fracture. Acute, new problem, furthe w/u indicated. L1 compression fracture, Kristel brace when out of bed, under the direction of primary neurosurgery service -plan is for possible kyphoplasty with surgery on Wednesday -suspect that this is the cause of the majority of patient's pain -pain management per primary team -[facility] as she may warrant initiation of bisphosphonate -cont vit D 2. Cervical stenosis. C4-C5 stenosis with possible myelopathy, unclear whether patient has gait imbalance and falls 2/2 stenosis vs. underlying benzo usage -d/w NSGY PA (Aaliyah Denis), recommended that this be considered as plans are made for surgery, recommended additional discussion by primary NSGY team w/ patient re: ACDF given her fears about the surgery, prior experiences w/ 's medical conditions -RCRI score of 0, conferring 0.5% perioperative risk of cardiovascular morbidity /mortality resulting in low CV risk for high risk surgery -agree w/ holding ASA until surgery -recommend close pulmonary monitoring post-op given her underlying ILD, no additional pulm stabilization needed pre-op -no further cardiac testing indicated 3. Chronic benzodiazepine dependency. Taking to manage anxiety, potentially exacerbating/causing her tremor, as she is using two short-acting benzos at intervals which will leave her w/o coverage for hours each morning and evening, and the tremulousness/gait imbalance may be withdraw effect experienced between these intervals. -she may also be experiencing gait imbalance while the benzos are in her system -in all, the use of chronic benzos for mgmt of anxiety are not a good choice, particularly in this patient who seems to have significant neurologic/cognitive issues at play -I would not recommend discontinuing them, or increasing them, but would recommend continuing them on her home schedule, and having her address this issue w/ her new psychiatrist, Dr. Sullivan -cont other psych meds -anticipate protracted recovery from her NSGY, potentially complicated by post- op encephalopathy 4. Interstitial Lung Disease. Chronic, cont home mycophenlate 5. HTN. Chronic, cont home Rx Hospital Medicine will continue to consult in her daily care.
[2017-02-20] MEDS: ALPRAZolam 1 MG TAB PO PRN (20:12)
[2017-02-20] MEDS: traZODone 100 MG TAB PO SCH (20:12)
[2017-02-21] MEDS: oxyCODONE IR 5 MG TAB PO PRN ×3 (07:36→21:58)
[2017-02-21] MEDS: ACETAMINOPHEN 325 MG TAB PO PRN ×3 (07:37→21:58)
[2017-02-21] MEDS: lamoTRIgine 100 MG TAB PO SCH (07:38)
[2017-02-21] MEDS: SENNOSIDES/DOCUSATE SODIUM TAB PO SCH ×2 (07:38→23:30)
[2017-02-21] MEDS: MYCOPHENOLATE MOFETIL 250 MG CAP PO SCH (07:39)
--- NOTE | 2017-02-21 09:55 | NEUSURGPN ---
Assessment/Plan: 76 yo F s/p fall on 02/07/17 with back pain, L1 compression fx, Lumbar stenosis, Cervical stenosis C45 with myelopathy Plan: -Lumbar KATI om02/19 for pain control. Pain is continuing to improve. Discussed it can take several days to notice full effect of KATI -Kristel brace when OOB for compression fx Pt has concerning stenosis at C45 with increased reflexes c/w myelopathy. Recommended C45 ACDF. Discussed risks, benefits and alternatives of surgery today. Would also consider removing stimulator at time of sx as she does not use it and it precludes her from undergoing MRI. Could also consider L1 kyphoplasty to be done at the same time as the ACDF and stim removal. Sx is tentatively planned for next wednesday. -Discussed risks, benefits and alternatives for ACDF c4/5; L1 kyphoplasty; removal of stimulator. Questions answered and consent signed. -Hold ASA and fish oil in anticipation of surgery -Appreciate medical consultation -Pain management - continue current regimen -PT/OT -Please call NS with any questions or concerns Subjective: low back pain, right hip pain improved slightly this morning. Medications are also helping with pain levels Objective: NAD A&Ox3 MAEx4 5/ and equal in BUE and BLE - Physician Discussed Patient with Dr.: Calvin Neurosurgery Physical Exam - Vitals, I&O, Labs I and O 02/20/17 02/21/17 02/22/17 05:59 05:59 05:59 Intake Total 687.5 Balance 687.5 Intake: IV Infused (ml) 687.5 Ns 1,000 ml @ 75 mls/hr 687.5 IV CONT AN Rx#: [id number] Other: Intake Quantity Yes Yes Sufficient Output Comment Toilet hasn't moved bowels yet; on the bowel protocol Number of Voids Toilet 4 1 Number of Stools Toilet 1 1 Vital Signs Temp Pulse Resp BP Pulse Ox 36.5 C 71 16 149/90 H 95 02/21/17 07:59 02/21/17 07:59 02/21/17 07:59 02/21/17 07:59 02/21/17 07:59 ICD10 Worksheet Patient Problems: Problems Problem Status Onset Back pain Acute Anxiety Active ESBL (extended spectrum beta-lactamase) producing bacteria infection Acute ~ Strain of right hip Acute
[2017-02-21] MEDS: PARoxetine HCL 20 MG TAB PO SCH (12:18)
[2017-02-21] MEDS: buPROPion XL 150 MG TAB PO SCH (12:18)
[2017-02-21] MEDS: LISINOPRIL 10 MG TAB PO SCH (12:18)
--- NOTE | 2017-02-21 12:59 | HOSPPROG ---
Hospitalist Progress Note Assessment/Plan: 76-year-old female presents with acute buttock and back pain secondary to L1 compression fracture, complicated by severe C4-C5 stenosis with myelopathy First encounter, chart reviewed. Plan: 1. Lumbar fracture. -L1 compression fracture, [place] brace when out of bed, under the direction of primary neurosurgery service -plan is for possible kyphoplasty with surgery on Wednesday -suspect that this is the cause of the majority of patient's pain -cont vit D 2. Cervical stenosis. -C4-C5 stenosis with possible myelopathy, unclear whether patient has gait imbalance and falls 2/2 stenosis vs. underlying benzo usage -agree w/ holding ASA until surgery -recommend close pulmonary monitoring post-op given her underlying ILD 3. Chronic benzodiazepine dependency. -Taking to manage anxiety, potentially exacerbating/causing her tremor -she may also be experiencing gait imbalance while the benzos are in her system -recommend not discontinuing them, or increasing them, but would recommend continuing them on her home schedule, and having her address this issue w/ her new psychiatrist, Dr. Sullivan -cont other psych meds -anticipate protracted recovery from her NSGY, potentially complicated by post- op encephalopathy 4. Interstitial Lung Disease. Chronic, cont home mycophenlate 5. HTN. Chronic, cont home Rx 6. Pain -currently controlled -pt moving well Hospital Medicine will continue to consult on her daily care. Subjective: Feeling a bit better. No specific issues. Objective: Vital Signs Temp Pulse Resp BP Pulse Ox 36.6 C 87 16 146/89 H 93 02/21/17 11:43 02/21/17 11:43 02/21/17 11:43 02/21/17 11:43 02/21/17 11:43 02/20/17 02/21/17 02/22/17 05:59 05:59 05:59 Intake Total 687.5 Balance 687.5 PT 11.7 SEC (12.0-15.0) L 02/18/17 12:50 INR 0.87 (0.83-1.16) 02/18/17 12:50 - Physical Exam Constitutional: appears nourished, not in pain, chronically ill appearing Eyes: PERRL, anicteric sclera, EOMI Ears, Nose, Mouth, Throat: moist mucous membranes, hearing normal, ears appear normal Cardiovascular: regular rate and rhythym, No JVD, No edema Respiratory: no respiratory distress, no rales or rhonchi, reduced air movement Gastrointestinal: normoactive bowel sounds, No tenderness, No ascites Skin: warm, normal color, No mottled Musculoskeletal: normal joint ROM, no joint effusions, pain with ROM, other ( tremor) Neurologic: AAOx3 Psychiatric: interacting appropriately, not encephalopathic, thought process linear ICD10 Worksheet Patient Problems: Problems Problem Status Onset Back pain Acute ESBL (extended spectrum beta-lactamase) producing bacteria infection Acute ~ Anxiety Active Strain of right hip Acute
[2017-02-21] MEDS: MYCOPHENOLATE MOFETIL 500 MG PO SCH (18:16)
[2017-02-21] MEDS: traZODone 100 MG TAB PO SCH (21:59)
[2017-02-22] MEDS: ALPRAZolam 1 MG TAB PO PRN (02:52)
--- NOTE | 2017-02-22 07:54 | NEUSURGPN ---
Assessment/Plan: 76 yo F s/p fall on 02/07/17 with back pain, L1 compression fx, lumbar stenosis, cervical stenosis C4/5 with myelopathy Plan: -Lumbar KATI on 02/19 for pain control. Pain is continuing to improve. Discussed it can take several days to notice full effect of KATI -Kristel brace when OOB for compression fx Pt has concerning stenosis at C45 with increased reflexes c/w myelopathy. Recommended C45 ACDF. Discussed risks, benefits and alternatives of surgery again today. Would also consider removing stimulator at time of sx as she does not use it and it precludes her from undergoing MRI. Could also consider L1 kyphoplasty to be done at the same time as the ACDF and stim removal. Sx is tentatively planned for Wednesday-orders in place. -Discussed risks, benefits and alternatives for ACDF C4/5; L1 kyphoplasty; removal of stimulator. Questions answered and consents signed already and on the chart. -Continue to hold ASA and fish oil in anticipation of surgery -Appreciate medical consultation -Pain management - continue current regimen -PT/OT-CPM -Please call NS with any questions or concerns Subjective: Awake and alert. NAD. Eating/drinking and voiding. No f/c/n/v/d. No other complaints or concerns. Objective: NAD A&Ox3 MAEx4 5/5 and equal in BUE and BLE Neuro Check Frequency: per routine Urinary Catheter in Place: No - Physician Discussed Patient with : Calvin Neurosurgery Physical Exam - Vitals, I&O, Labs I and O 02/21/17 02/22/17 02/23/17 05:59 05:59 05:59 Intake Total 2300 Balance 2300 Intake: Oral (ml) 2300 Other: Intake Quantity Yes Yes Sufficient Output Comment Toilet hasn't moved bowels yet; on the bowel protocol Number of Voids Toilet 4 3 Number of Stools Toilet 1 2 Vital Signs Temp Pulse Resp BP Pulse Ox 36.7 C 76 20 187/107 H 92 02/22/17 07:34 02/22/17 07:34 02/22/17 07:34 02/22/17 07:34 02/22/17 00:00 ICD10 Worksheet Patient Problems: Problems Problem Status Onset Back pain Acute Anxiety Active ESBL (extended spectrum beta-lactamase) producing bacteria infection Acute ~ Strain of right hip Acute
[2017-02-22] MEDS: oxyCODONE IR 5 MG TAB PO PRN (08:02)
[2017-02-22] MEDS: lamoTRIgine 100 MG TAB PO SCH (08:03)
[2017-02-22] MEDS: SENNOSIDES/DOCUSATE SODIUM TAB PO SCH ×2 (08:03→20:15)
[2017-02-22] MEDS: MYCOPHENOLATE MOFETIL 500 MG PO SCH ×2 (08:05→14:42)
[2017-02-22] MEDS: LORazepam 1 MG TAB PO PRN ×2 (08:12→19:36)
--- NOTE | 2017-02-22 11:48 | HOSPPROG ---
Hospitalist Progress Note Assessment/Plan: Assessment/Plan: 76-year-old female presents with acute buttock and back pain secondary to L1 compression fracture, complicated by severe C4-C5 stenosis with myelopathy Plan: 1. Lumbar fracture. L1 compression fracture, [place] brace when out of bed, under the direction of primary neurosurgery service -plan is for possible kyphoplasty with surgery tomorrow -suspect that this is the cause of the majority of patient's pain -Vit D on hold per primary service 2. Cervical stenosis. C4-C5 stenosis with possible myelopathy, unclear whether patient has gait imbalance and falls 2/2 stenosis vs. underlying benzo usage -agree w/ holding ASA until surgery -recommend close pulmonary monitoring post-op given her underlying ILD 3. Chronic benzodiazepine dependency. Taking to manage anxiety, potentially exacerbating/causing her tremor -she may also be experiencing gait imbalance while the benzos are in her system -recommend not discontinuing them, or increasing them, but would recommend continuing them on her home schedule, and having her address this issue w/ her new psychiatrist, Dr. Sullivan -cont other psych meds -anticipate protracted recovery from her NSGY, potentially complicated by post- op encephalopathy -she is requesting one-time dose tomorrow AM (if needed) prior to surgery, since she is very anxious and has a hx of actually walking out of a hospital prior to a previous surgery 2/2 her anxiety 4. Interstitial Lung Disease w/ chronic immunosuppression. Chronic, cont home mycophenlate 5. HTN. Chronic, cont lisinopril at 10mg daily -acute exacerbation today 2/2 pain, cont to monitor, may need PRN IV hydralazine post-op to prevent bleeding if SBP consistently > 160 Hospital Medicine will continue to consult on her daily care. Subjective: patient feeling less anxious this AM, had pain this AM Objective: Vital Signs Temp Pulse Resp BP Pulse Ox 36.7 C 76 20 187/107 H 92 02/22/17 07:34 02/22/17 07:34 02/22/17 07:34 02/22/17 07:34 02/22/17 00:00 02/21/17 02/22/17 02/23/17 05:59 05:59 05:59 Intake Total 2300 380 Balance 2300 380 PT 11.7 SEC (12.0-15.0) L 02/18/17 12:50 INR 0.87 (0.83-1.16) 02/18/17 12:50 - Physical Exam Constitutional: no apparent distress, chronically ill appearing, obese, uncomfortable Cardiovascular: regular rate and rhythym, no murmur, rub, or gallop, No irregularly irregular, No edema Respiratory: no respiratory distress, no rales or rhonchi, clear to auscultation Gastrointestinal: normoactive bowel sounds, soft, non-tender abdomen, no palpable masses, No distension Neurologic: AAOx3, sensation intact bilaterally, No weakness (motor 5/5 bilat distal LE), No facial droop Psychiatric: interacting appropriately, not encephalopathic, thought process linear, anxious, No agitated ICD10 Worksheet Patient Problems: Problems Problem Status Onset Back pain Acute Anxiety Active ESBL (extended spectrum beta-lactamase) producing bacteria infection Acute ~ Strain of right hip Acute
[2017-02-22] MEDS: buPROPion XL 150 MG TAB PO SCH (11:54)
[2017-02-22] MEDS: LISINOPRIL 10 MG TAB PO SCH (11:54)
[2017-02-22] MEDS: PARoxetine HCL 20 MG TAB PO SCH (11:54)
--- NOTE | 2017-02-22 15:15 | ASMTCMCOM ---
CM Note CM Note Notes: Pt still scheduled for spinal surgery tomorrow, therapies will re-eval after surgery and CM will monitor therapy recs for d/c needs. Date Signed: 02/22/2017 03:15 PM Electronically Signed By:YOJANA Marcos
[2017-02-22] MEDS: traZODone 100 MG TAB PO SCH (20:15)
--- NOTE | 2017-02-23 07:22 | NEUSURGPN ---
Assessment/Plan: Assessment: 76 yo F s/p fall on 02/07/17 with back pain, L1 compression fx, lumbar stenosis, cervical stenosis C4/5 with myelopathy Plan: -Lumbar KATI on 02/19 for pain control. Pain is continuing to improve. Discussed it can take several days to notice full effect of KATI -Kristel brace when OOB for compression fx -Pt has concerning stenosis at C45 with increased reflexes c/w myelopathy. Recommended C45 ACDF. Discussed risks, benefits and alternatives of surgery already. Would also consider removing stimulator at time of sx as she does not use it and it precludes her from undergoing MRI. Could also consider L1 kyphoplasty to be done at the same time as the ACDF and stim removal. Sx is tentatively planned for Wednesday (today at 1330)-orders in place. Pt marked and questions answered -Discussed risks, benefits and alternatives for ACDF C4/5; L1 kyphoplasty; removal of stimulator. Questions answered and consents signed already and on the chart. -Continue to hold ASA and fish oil in anticipation of surgery -Appreciate medical consultation and input -Pain management - continue current regimen -PT/OT-CPM -Please call NS with any questions or concerns Subjective: Awake and alert. No new events overnight. No sandhu/neck/chest/abd or gu complaints. No f/c/n/v/d. Objective: NAD A&Ox3 MAEx4 5/5 and equal in BUE and BLE Neuro Check Frequency: per routine Urinary Catheter in Place: No - Physician Discussed Patient with : Calvin Patient Seen by : Calvin Neurosurgery Physical Exam - Vitals, I&O, Labs I and O 02/22/17 02/23/17 02/24/17 05:59 05:59 05:59 Intake Total 2300 730 Output Total 650 Balance 2300 80 Intake: Oral (ml) 2300 730 Output: Urine (ml) 650 Toilet 650 Other: Intake Quantity Yes Yes Sufficient Number of Voids Toilet 3 2 Number of Stools Toilet 2 Vital Signs Temp Pulse Resp BP Pulse Ox 36.9 C 70 16 142/76 H 93 02/22/17 23:17 02/22/17 23:17 02/22/17 23:17 02/22/17 23:17 02/22/17 23:17 ICD10 Worksheet Patient Problems: Problems Problem Status Onset Back pain Acute Anxiety Active ESBL (extended spectrum beta-lactamase) producing bacteria infection Acute ~ Strain of right hip Acute
[2017-02-23] MEDS: NS 1,000 ML IV SCH (07:45)
[2017-02-23] MEDS ORDERED: ceFAZolin 2 GM/DEXTROSE 100 ML IV ONE (07:49)
[2017-02-23] MEDS: HYDROmorphONE/DILAUDID 1 MG/ML INJ IVP PRN ×3 (08:21→20:53)
[2017-02-23] MEDS: oxyCODONE IR 5 MG TAB PO PRN ×2 (08:23→20:57)
[2017-02-23] MEDS: lamoTRIgine 100 MG TAB PO SCH (08:24)
[2017-02-23] MEDS: MYCOPHENOLATE MOFETIL 500 MG PO SCH (08:27)
[2017-02-23] MEDS: SENNOSIDES/DOCUSATE SODIUM TAB PO SCH ×2 (09:03→21:00)
[2017-02-23] MEDS ORDERED: THROMBIN (BOVINE) 20,000 UNIT VIAL TP ONE (11:43)
[2017-02-23] MEDS ORDERED: CHLORHEXIDINE GLUC HIBICLENS 118 ML BTL TP ONE (11:43)
[2017-02-23] MEDS ORDERED: BACITRACIN 50,000 UNITS/10 ML SYR IRR ONE ×2 (11:43→11:49)
[2017-02-23] MEDS ORDERED: BUPIVACAINE 0.25% 30 ML SDV ONE ×2 (11:44→11:50)
[2017-02-23] MEDS ORDERED: IOPAMIDOL (ISOVUE-M 300) 15 ML VIAL ONE (11:49)
[2017-02-23] MEDS ORDERED: CEFAZOLIN 2 GM/DEXTROSE/100 ML BAG IV ONE (13:35)
[2017-02-23] MEDS ORDERED: MIDAZOLAM 2 MG/2 ML VIAL IVP ONE (13:48)
[2017-02-23] MEDS ORDERED: fentaNYL 100 MCG/2 ML INJ ONE ×5 (13:54→19:45)
[2017-02-23] MEDS ORDERED: REMIFENTANIL HCL 1 MG VIAL ONE ×2 (13:54→16:28)
[2017-02-23] MEDS ORDERED: PROPOFOL 200 MG/20 ML VIAL ONE (13:56)
[2017-02-23] MEDS ORDERED: PROPOFOL/EMULSION 500 MG/50 ML BOTTLE IV ONE ×2 (13:56→16:28)
[2017-02-23] MEDS ORDERED: ROCURONIUM 50 MG/5 ML VIAL ONE (13:56)
[2017-02-23] MEDS ORDERED: ONDANSETRON 4 MG/2 ML VIAL ONE (13:56)
[2017-02-23] MEDS ORDERED: DEXAMETHASONE 4 MG/ML VIAL ONE ×2 (13:56→14:43)
[2017-02-23] MEDS ORDERED: PHENYLEPHRINE HCL 100 MCG/ML SYR ONE (14:05)
[2017-02-23] MEDS ORDERED: LIDOCAINE 2% 5 ML SDV ONE (14:05)
[2017-02-23] MEDS ORDERED: epHEDrine SULFATE 10 MG/ML SYR ONE ×2 (14:59)
--- NOTE | 2017-02-23 15:18 | PDANEPAE ---
ANE Past Medical History - Cardiovascular History Hx Hypertension: Yes Hx Arrhythmias: No Hx Chest Pain: No Hx Coronary Artery / Peripheral Vascular Disease: No Hx CHF / Valvular Disease: No Hx Palpitations: No - Pulmonary History Hx COPD: No Hx Asthma/Reactive Airway Disease: No Hx Recent Upper Respiratory Infection: No Hx Oxygen in Use at Home: No Hx Sleep Apnea: No Sleep Apnea Screening Result - Last Documented: Negative Pulmonary History Comment: Interstitial lung disease - Endocrine History Hx Diabetes: No Hypothyroid: No Hyperthyroid: No Obesity: yes, mild - Renal History Hx Renal Disorders: No - Neurological & Psychiatric Hx Hx Neurological and Psychiatric Disorders: Yes Neurological / Psychiatric History Comment: bipolar d/o. anxiety - GI History GERD: no Hx Gastrointestinal Disorders: No - Chronic Pain History Chronic Pain: No ANE Review of Systems Review of Systems: - Exercise capacity METS (RN): 2 METS ANE Patient History - Allergies Allergies/Adverse Reactions: morphine Allergy (Intermediate, Verified 04/12/12 02:13) Vomiting tramadol [Tramadol] Allergy (Unknown, Verified 04/12/12 02:13) Unknown - Home Medications Home Medications: Aspirin [Aspirin 81mg (*)] 81 mg PO DAILY 04/12/12 [Last Taken 02/17/17] Cholecalciferol Vit D3 [Vitamin D3 (*)] 1,000 units PO DAILY 04/12/12 [Last Taken 02/17/17] Lisinopril [Zestril 10 mg (*)] 10 mg PO DAILY@12 04/12/12 [Last Taken 02/17/17] Multivitamins [Multivitamin (*)] 1 each PO DAILY 04/12/12 [Last Taken 02/17/17] Machias-3 Fatty Acids [Fish Oil 1000 mg (*)] 1,000 mg PO DAILY 04/12/12 [Last Taken 02/17/17] ALPRAZolam [Xanax 1 MG (*)] 1 mg PO HS PRN 12/22/16 [Last Taken 02/17/17] LORazepam [Ativan (*)] 1 mg PO DAILY 12/22/16 [Last Taken 02/17/17] Ondansetron Odt [Zofran Odt 4 mg (*)] 4 mg PO DAILY PRN 12/22/16 [Last Taken ] PARoxetine HCL [Paxil 20mg (*)] 20 mg PO DAILY@12 18/17 [Last Taken 02/17/17] buPROPion XL [Wellbutrin 150mg XL] 300 mg PO DAILY@12/22/16 [Last Taken 02/17] traZODone [traZODONE 100MG (*)] 100 mg PO HS 12/22/16 [Last Taken 02/17/17] Mycophenolate Mofetil [Cellcept] 500 mg PO DAILY@12/23/16 [Last Taken ] lamoTRIgine [LamICTAL 100 MG (*)] 100 mg PO DAILY 02/19/17 [Last Taken Unknown] - NPO status NPO Since - Liquids (Date): 02/22/17 NPO Since - Liquids (Time): 00:00 NPO Since - Solids (Date): 02/22/17 NPO Since - Solids (Time): 00:00 - Smoking Hx Smoking Status: Former smoker - Alcohol Use Alcohol Use: Occasionally ANE Labs/Vital Signs - Labs Result Diagrams: 02/18/17 12:50 02/18/17 12:50 - Vital Signs Blood Pressure: 168/107 Heart Rate: 78 Respiratory Rate: 14 O2 Sat (%): 16 Height: 160.02 cm Weight: 79.379 kg ANE Physical Exam - Airway Neck exam: decreased ROM, increased neck circumference Mallampati Score: Class 3 Mouth exam: normal dental/mouth exam - Pulmonary Pulmonary: no respiratory distress, no rales or rhonchi, reduced air movement - Cardiovascular Cardiovascular: regular rate and rhythym, no murmur, rub, or gallop - ASA Status ASA Status: III ANE Anesthesia Plan Anesthesia Plan: general endotracheal anesthesia Total IV Anesthesia: No
[2017-02-23] MEDS ORDERED: LABETALOL HCL 5 MG/ML 20 ML MDV IVP PRN (15:25)
[2017-02-23] MEDS ORDERED: HYDROCODONE/APAP 5/325 TAB PO PRN (15:25)
[2017-02-23] MEDS ORDERED: OXYCODONE/APAP 5/325 TAB PO PRN (15:25)
[2017-02-23] MEDS ORDERED: LR 500 ML IV PRN (15:25)
[2017-02-23] MEDS ORDERED: ONDANSETRON 4 MG/2 ML VIAL IVP PRN ×2 (15:25→17:01)
[2017-02-23] MEDS ORDERED: HYDROmorphONE/DILAUDID 1 MG/ML INJ IVP PRN (15:25)
[2017-02-23] MEDS ORDERED: NALOXONE HCL 0.4 MG/ML INJ IVP PRN (15:25)
[2017-02-23] MEDS ORDERED: ACETAMINOPHEN 500 MG TAB PO PRN (15:25)
--- NOTE | 2017-02-23 15:28 | HOSPPROG ---
Hospitalist Progress Note Assessment/Plan: patient in OR< unable to be seen hosp medicine will follow up 02/24 Objective: Vital Signs Temp Pulse Resp BP Pulse Ox 36.7 C 78 14 168/107 H 16 L 02/23/17 13:54 02/23/17 15:25 02/23/17 15:25 02/23/17 15:25 02/23/17 15:25 02/22/17 02/23/17 02/24/17 05:59 05:59 05:59 Intake Total 2300 730 Output Total 650 Balance 2300 80 PT 11.7 SEC (12.0-15.0) L 02/18/17 12:50 INR 0.87 (0.83-1.16) 02/18/17 12:50 ICD10 Worksheet Patient Problems: Problems Problem Status Onset Back pain Acute Anxiety Active ESBL (extended spectrum beta-lactamase) producing bacteria infection Acute ~ Strain of right hip Acute
[2017-02-23] MEDS ORDERED: ONDANSETRON DISINTEGRATING 4 MG TAB PO PRN (17:01)
[2017-02-23] MEDS ORDERED: MAGNESIUM HYDROXIDE 30 ML UDCUP PO PRN (17:01)
[2017-02-23] MEDS ORDERED: LACTULOSE 20 GM/30 ML UDCUP PO PRN (17:01)
[2017-02-23] MEDS ORDERED: NS 1,000 ML IV SCH (17:15)
[2017-02-23] MEDS ORDERED: ceFAZolin 1 GM VIAL ONE (17:19)
--- NOTE | 2017-02-23 18:03 | POSTOPPROG ---
Post Op Note Date of Operation: 02/23/17 Surgeon: Alison Simeon Warehouse Handler: Serene Simeon PA-C Anesthesiologist: Silke Anesthesia: GET(General Endotracheal) Pre-op Diagnosis: cervical stenosis, L1 fracture, non functioning stimulator Post-op Diagnosis: same Indication: spinal cord compression, pain, retained stimulator Procedure: C45 ACDF, L1 kyphoplasty, left leg stimulator removal Findings: Please see dictation Inf/Abcess present in the surg proc area at time of surgery?: No Depth: Organ Space EBL: 50-100 Total fluids administered: 2L Complications: none Drains: Trino Alonso Specimen(s): nerve stimulator for gross pathology PA Addendum - Addendum .: S: Pt in PACU, denies pain O: Sleepy but awakens easily NAD VSS MAEx4 Motor 5/5 BUE/BLE JPx2 - anterior cervical and anterior L thigh Incisions cdi dressed - anterior cervical, lumbar incision, anterior and posterior L thigh +LT A: 76 yo F s/p C45 ACDF, L1 kyphoplasty, L thigh/groin nerve stimulator removal P: PT/OT/FIELD KILN BURNER Spine precautions Post op xrays pending No brace TEDs, SCDs, lovenox POD#3 Pain management Ice to anteiror thigh incision Follow DIAMOND drain output - plan to remove both drains tomorrow D/w Dr Simpson Call NS with any issues
[2017-02-23] MEDS: fentaNYL 100 MCG/2 ML INJ IVP PRN ×3 (18:53→19:52)
--- NOTE | 2017-02-23 19:03 | POSTANESTH ---
Post Anesthetic Evaluation Cardiovascular Status: Normal, Stable Respiratory Status: Normal, Stable Level of Consciousness/Mental Status: Can Participate in Eval Pain Control: Inadeq, Add Tx Required Nausea/Vomiting Control: Adequate, Prn Tx Ordered Complications Possibly Related to Anesthesia: Other, See Comments (probable corneal abrasion OS. surgeon notified. saline drops and gauze covering w/ tape over the affected eye)
[2017-02-23] MEDS: ERYTHROMYCIN 0.5% 1 GM OPHT.OINT LEFTEYE SCH ×2 (19:51→22:57)
[2017-02-23] MEDS: traZODone 100 MG TAB PO SCH (20:57)
[2017-02-23] MEDS: FAMOTIDINE 20 MG TAB PO SCH (20:57)
[2017-02-23] MEDS: ACETAMINOPHEN 500 MG TAB PO SCH (22:56)
[2017-02-23] MEDS: ceFAZolin 2 GM/DEXTROSE 100 ML IV SCH (22:57)
--- NOTE | 2017-02-24 00:08 | GOP ---
[f rep st] OPERATIVE REPORT DATE OF OPERATION: 02/23/2017 SURGEON: Timothy Simpson MD SLAB TRIPPER: JESS Oliver. ANESTHESIA: General. PREOPERATIVE DIAGNOSIS: 1. C4-C5 cervical stenosis with myelopathy. 2. L1 pathologic compression fracture with intractable back pain and treatment refractory to nonoperative intervention. 3. Left anterior thigh peripheral nerve stimulator, nonfunctioning. POSTOPERATIVE DIAGNOSIS: 1. C4-C5 cervical stenosis with myelopathy. 2. L1 pathologic compression fracture with intractable back pain and treatment refractory to nonoperative intervention. 3. Left anterior thigh peripheral nerve stimulator, nonfunctioning. PROCEDURES PERFORMED: I. 1. Anterior arthrodesis with approach at C4-C5. 2. C4-C5 diskectomy with bilateral foraminotomies, osteophytectomies, and interbody fusion using a 6 x 14 x 11 mm titanium coated Polyetheretherketone cage filled with morselized autograft and allograft. 3. Anterior cervical fusion C4-C5 with a 17 mm Medtronic Zevo plate. 4. Use of the operating microscope. 5. Use of neuromonitoring. 6. Use of intraoperative fluoroscopy, less than 1 hour physician time. II. 1. Removal of left thigh peripheral nerve implantable pulse generator and implanted paddle lead. 2. Use of intraoperative fluoroscopy, less than 1 hour physician time. III. 1. L1 kyphoplasty with 3 mL of bone cement from the Kyphon system. 2. Use of intraoperative fluoroscopy, less than 1 hour physician time. 3. Use of intraoperative 3D Stealth navigation. FINDINGS: per imaging SPECIMENS: The peripheral left thigh peripheral nerve implantable pulse generator, leads, and paddle were sent to Pathology for gross specimen analysis. ESTIMATED BLOOD LOSS: 100 mL. INDICATIONS: The patient is a 76-year-old woman who presented to the hospital with signs and symptoms consistent with myelopathy and severe back pain. She had evidence of severe spinal stenosis C4-C5 in addition to her cervical spondylosis. She also had an L1 pathologic compression deformity. The patient also had a left thigh peripheral nerve implantable pulse generator with stimulator which she had not used for 8 years but prevented her from getting any MRI scans. After discussion of the risks, benefits, and treatment alternatives, we decided to proceed forth with surgery in the way of a C4-C5 decompression and fusion as well as kyphoplasty for her fracture as well as removal of her stimulator system, given the fact that she was no longer utilizing the generator or stimulator for its intended purposes for pain control. DESCRIPTION OF PROCEDURE: Patient was brought to the operating theater and underwent general endotracheal anesthesia without complications. She had Venodynes, SOFIA hose, and the appropriate lines placed by Anesthesia. Her head was maintained supine on the operating table. Using lateral fluoroscopy and a spinal needle, we then picked our entry point to the C4-C5 level. This was marked as a transverse incision on the right side of her neck. The patient's anatomy was extremely difficult to visualize as she had evidence of a C3-C4 autofusion. At this point, an incision was marked out as a transverse incision on the right side of her neck and prepped and draped in the usual sterile surgical fashion. A time-out was completed per protocol. The patient received antibiotics within 1 hour of incision. The incision was taken down initially with the scalpel blade and then using Monopolar cautery, taken down through subcutaneous tissues to the level of platysma. The platysma was over-mined in the cranial and caudal directions. A Weitlaner was placed to maintain our exposure. We opened the fibers of the platysma cranially and caudally and using both blunt and sharp dissection, we then traveled in a plane medial to the carotid sheath and lateral to the esophagus and trachea to reach the prevertebral fascia. We placed a bayonetted needle into the disk space of C4-C5 and confirmed our level again utilizing the C3-C4 fusion level as a landmark. The longus coli muscle was then elevated bilaterally from the vertebral bodies of C4 and C5 and deep retractors were placed to maintain our exposure. We placed [place] pins into the vertebral body of C4 and C5 and placed C4-C5 into a mild distraction. The microscope was brought into field to assist with microscopic dissection and to maintain illumination and magnification. We used a combination of the bur tip on the drill bit and Kerrison punches as well as forward angled curettes, and completed a C4-C5 diskectomy with bilateral foraminotomies. We prepared the cartilaginous endplates and measured interbody space. We then placed a 6 x 14 x 11 mm titanium coated PEEK cage filled with morselized autograft and allograft into the C4-C5 disk space. We removed the [place] pins and drilled down the anterior osteophytes. We secured a 17 mm Medtronic Zevo plate onto the vertebral bodies of C4 and C5. AP and lateral x-rays demonstrated good placement of the hardware. We obtained hemostasis with the bipolar and the wound was irrigated copiously with bacitracin irrigation. A drain was left in the subfascial space and the wound then closed in multiple layers using Vicryl sutures for the deep layers and Dermabond for the skin. This was completion of the ACDF portion of the surgery. At this point, we draped the left anterior thigh incision from the patient's implantable pulse generator and peripheral nerve stimulator. Another time-out was completed per protocol. The incision was infiltrated with Marcaine with epinephrine and taken down with the plasma blade. We identified the implantable pulse generator and single lead. We circumferentially dissected this from the scar tissues using very careful microsurgical technique. The lead was noted to travel laterally around the thigh and given that I could not remove it intact in its entirety from this portion, I cut the lead and removed the implantable pulse generator and proximal aspect of the lead and passed them off the field. We irrigated this wound copiously with bacitracin irrigation. We left a drain in the subcutaneous space. We then closed this wound in multiple layers using Vicryl sutures for deep layers and Dermabond for the skin. At this point, the patient was flipped prone onto the Trino table and we re- prepped the posterior aspect of the left thigh from her previous incision. At this point, we infiltrated the incision with Marcaine with epinephrine and, after completing another time-out, incised it with an 11-blade. The incision was then taken down through subcutaneous tissues with the plasma blade until we identified the proximal aspect of the lead. We then followed the lead into the subcutaneous tissues. We were able to identify a paddle lead encased in scar tissue. I circumferentially dissected this out with microsurgical technique. We then passed the entire lead, paddle, and implantable pulse generator off the field. At this point, this wound was then closed in multiple layers after being irrigated with multiple layers including Vicryl sutures for the deep layers and Dermabond for the skin. At this point, we undraped and then re-draped the patient's thoracic and lumbar spine. We marked our incision on the inferior aspect of the midline thoracic spine. This incision was infiltrated with Marcaine with epinephrine and taken down with the scalpel blade. Using the monopolar, the incision was then taken down through subcutaneous tissues to the lumbodorsal fascia and a subperiosteal dissection carried out midline. We attached the 3D Stealth navigation clamp to the spinous processes of the inferior thoracic spine. We completed a 3D Stealth navigation spin. Using the 3D Stealth navigation length, we used the ELDA needle and navigation system to cannulate the left L1 pedicle screw from the right side. This was completed using live AP and lateral fluoroscopic images. We then inflated a balloon into the previous fracture site of L1. We removed the balloon and placed the cement delivery system into the L1 fracture site and previously created cavity and injected approximately 3 mL of cement from the Kyphon system into the fracture and cavity. There was a small extravasation of the cement anteriorly and to the right but did not appear to be any neurovascular takeup or migration of the cement outside the vertebral body confines. Once we felt that we had good filling of the fracture and cavity , we withdrew the cement delivery system. Final AP and lateral x-rays demonstrated good placement of the cement. We irrigated the wounds copiously with bacitracin irrigation and closed them in multiple layers using Vicryl sutures for the deep layers and Dermabond for the skin. The patient's wounds were dressed sterilely. She was then flipped supine onto the transfer cart. She was awakened, extubated, and taken to the recovery room in stable condition. There were no complications and no noted changes on neuromonitoring throughout the procedure. COMPLICATIONS: None. /[id number]/MODL MTDD
[2017-02-24] MEDS: buPROPion XL 150 MG TAB PO SCH ×2 (02:01→12:31)
[2017-02-24] MEDS: MYCOPHENOLATE MOFETIL 500 MG PO SCH ×3 (02:03→14:20)
[2017-02-24] MEDS: LISINOPRIL 10 MG TAB PO SCH ×2 (02:03→12:31)
[2017-02-24] MEDS: PARoxetine HCL 20 MG TAB PO SCH ×2 (02:04→12:31)
[2017-02-24] MEDS: oxyCODONE IR 5 MG TAB PO PRN ×4 (03:34→21:28)
[2017-02-24] MEDS: HYDROmorphONE/DILAUDID 1 MG/ML INJ IVP PRN (03:36)
[2017-02-24 06:09] LABS: HEMATOCRIT 33.6 % (38.0-47.0); HEMOGLOBIN 10.7 g/dL (12.6-16.3)
[2017-02-24] MEDS: ACETAMINOPHEN 500 MG TAB PO SCH ×3 (06:16→21:25)
[2017-02-24] MEDS: ceFAZolin 2 GM/DEXTROSE 100 ML IV SCH (06:17)
[2017-02-24 06:19] LABS: ANION GAP 9 mEq/L (8-16); CALCIUM 8.4 mg/dL (8.5-10.4); CARBON DIOXIDE 21 mEq/l (22-31); CHLORIDE 105 mEq/L (97-110); CREATININE 0.9 mg/dL (0.6-1.0); GLOMERULAR FILTRATION RATE > 60; GLUCOSE 148 mg/dL (70-100); POTASSIUM 4.3 mEq/L (3.5-5.2); SODIUM 135 mEq/L (134-144)
--- NOTE | 2017-02-24 09:05 | NEUSURGPN ---
Date of Surgery: 02/23/17 Post Op Day: 1 Assessment/Plan: 76 yo F s/p C45 ACDF, L1 kyphoplasty, L thigh/groin nerve stimulator removal - neuro stable - remove cervical DIAMOND and left thigh DIAMOND today - advance diet as tolerated - PT/OT/ST - does not need to wear the back brace - left corneal abrasion: erythromycin ointment - postop C-spine x-rays pending - dispo: likely home tomorrow Discussed with Dr. Simpson. Subjective: No UE pain, numbness, tingling. Having localized incisional pain. Objective: Awake. Alert. PERRL. EOMI Facial expression symmetrical Muscle strength full at 5/5 Sensation intact Incisions c/d/i with dressings - Physician Discussed Patient with Dr.: Simpson Neurosurgery Physical Exam - Vitals, I&O, Labs I and O 02/23/17 02/24/17 02/25/17 05:59 05:59 05:59 Intake Total 730 2200 Output Total 650 550 Balance 80 1650 Weight 79.379 kg Intake: Oral (ml) 730 700 IV Intake (ml) 1500 Output: Urine (ml) 650 500 Toilet 650 500 DIAMOND Drain Output (ml) 50 #1 Neck 30 #2 Left Knee 20 Other: Intake Quantity Yes Sufficient Number of Voids Toilet 2 1 Vital Signs Temp Pulse Resp BP Pulse Ox 36.7 C 67 14 138/79 H 98 02/24/17 07:27 02/24/17 07:27 02/24/17 07:27 02/24/17 07:27 02/24/17 07:27 Laboratory Results 02/24/17 04:15 02/24/17 04:15 ICD10 Worksheet Patient Problems: Problems Problem Status Onset Back pain Acute Anxiety Active ESBL (extended spectrum beta-lactamase) producing bacteria infection Acute ~ Strain of right hip Acute
[2017-02-24] MEDS: SENNOSIDES/DOCUSATE SODIUM TAB PO SCH ×2 (10:10→21:24)
[2017-02-24] MEDS: lamoTRIgine 100 MG TAB PO SCH (10:10)
[2017-02-24] MEDS: FAMOTIDINE 20 MG TAB PO SCH ×2 (10:10→21:23)
[2017-02-24] MEDS: ERYTHROMYCIN 0.5% 1 GM OPHT.OINT LEFTEYE SCH ×3 (10:11→21:30)
[2017-02-24] MEDS: CYCLOBENZAPRINE 10 MG TAB PO PRN ×2 (11:02→21:27)
--- NOTE | 2017-02-24 17:47 | HOSPPROG ---
Hospitalist Progress Note Assessment/Plan: DIAGNOSES: 1. Lumbar fracture. L1 compression fracture, -now status post kyphoplasty 2. Cervical stenosis 4,5 -now status post arthrodesis, dissected me, fusion at C4-5 3. Chronic benzodiazepine dependency. -some anxiety but overall doing much better today 4. Acute left corneal abrasion suffered during or after surgery, doing better today with patch 5. Interstitial Lung Disease w/ chronic immunosuppression. Chronic, cont home mycophenlate 6. HTN. Chronic, cont lisinopril at 10mg daily PLANS: -continue eye patch -continue current medications -therapies -postsurgical care per Neurosurgery SUBJECTIVE: She feels notably less anxious today than yesterday Her left eye feels notably better than last night OBJECTIVE Vitals reviewed: Is stable overall Exam: alert oriented skin warm dry color ok resps not labored lungs clear BSs heart regular abd soft nondistended nontender, bowel sounds present limbs warm, no edema iv site ok Objective: Vital Signs Temp Pulse Resp BP Pulse Ox 36.4 C 70 18 152/79 H 90 L 02/24/17 16:50 02/24/17 16:50 02/24/17 16:50 02/24/17 16:50 02/24/17 16:50 Laboratory Results 02/24/17 04:15 02/24/17 04:15 02/23/17 02/24/17 02/25/17 06:59 06:59 06:59 Intake Total 730 2200 Output Total 016 702 1190 Balance 80 1650 -1000 PT 11.7 SEC (12.0-15.0) L 02/18/17 12:50 INR 0.87 (0.83-1.16) 02/18/17 12:50 ICD10 Worksheet Patient Problems: Problems Problem Status Onset Back pain Acute Anxiety Active ESBL (extended spectrum beta-lactamase) producing bacteria infection Acute ~ Strain of right hip Acute
[2017-02-24] MEDS: traZODone 100 MG TAB PO SCH (21:26)
[2017-02-25] MEDS: ACETAMINOPHEN 500 MG TAB PO SCH ×2 (05:53→14:31)
[2017-02-25 07:11] VITALS: RESP 16
--- NOTE | 2017-02-25 07:20 | NEUSURGPN ---
Assessment/Plan: 76 yo F s/p C45 ACDF, L1 kyphoplasty, L thigh/groin nerve stimulator removal - POD #2 - neuro stable - pain management - c/o lower back pain after bending down to pick something up yesterday. Continue to monitor. Continue pain meds, muscle relaxant, ice. - diet as tolerated - PT/OT/ST - does not need to wear the back brace - left corneal abrasion: erythromycin ointment, now with eye patch and states this is helping - postop C-spine x-rays done and show stable hardware - dispo: likely home today vs tomorrow pending clinical course Discussed with Dr. Simpson. Subjective: Pt resting in bed, states she bent down yesterday to get something and now has persistent back pain at the L45 level. She is worried about going home today. Objective: AAOx3 NAD VSS MAEx4 Motor 5/5 BUE/BLE cervical incision dressed cdi thoracic incision cdi glue in place anterior and posterior thigh incisions cdi, posterior thigh incision with some irritation - new dressing placed +LT Urinary Catheter in Place: No - Physician Discussed Patient with : Calvin Neurosurgery Physical Exam - Vitals, I&O, Labs I and O 02/24/17 02/25/17 02/26/17 05:59 05:59 05:59 Intake Total 2200 Output Total 550 1000 Balance 1650 -1000 Weight 79.379 kg Intake: Oral (ml) 700 IV Intake (ml) 1500 Output: Urine (ml) 500 1000 Toilet 500 1000 DIAMOND Drain Output (ml) 50 #1 Neck 30 #2 Left Knee 20 Other: Intake Quantity Yes Sufficient Number of Voids Toilet 1 4 Number of Stools Toilet 2 Vital Signs Temp Pulse Resp BP Pulse Ox 37.1 C 86 16 129/82 H 92 02/25/17 07:09 02/25/17 07:09 02/25/17 07:09 02/25/17 07:09 02/25/17 07:09 Laboratory Results 02/24/17 04:15 02/24/17 04:15 ICD10 Worksheet Patient Problems: Problems Problem Status Onset Back pain Acute Anxiety Active ESBL (extended spectrum beta-lactamase) producing bacteria infection Acute ~ Strain of right hip Acute
[2017-02-25] MEDS: oxyCODONE IR 5 MG TAB PO PRN (09:26)
[2017-02-25] MEDS: FAMOTIDINE 20 MG TAB PO SCH (09:26)
[2017-02-25] MEDS: ERYTHROMYCIN 0.5% 1 GM OPHT.OINT LEFTEYE SCH (09:27)
[2017-02-25] MEDS: lamoTRIgine 100 MG TAB PO SCH (09:27)
[2017-02-25] MEDS: MYCOPHENOLATE MOFETIL 500 MG PO SCH ×2 (09:28→14:36)
[2017-02-25 11:41] VITALS: BP 130/69; PULSE 103; TEMP 98.7; O2SAT 91
[2017-02-25] MEDS: PARoxetine HCL 20 MG TAB PO SCH (12:14)
[2017-02-25] MEDS: LISINOPRIL 10 MG TAB PO SCH (12:14)
[2017-02-25] MEDS: buPROPion XL 150 MG TAB PO SCH (12:14)
--- NOTE | 2017-02-25 14:12 | HOSPPROG ---
Hospitalist Progress Note Assessment/Plan: Patient is a 76-year-old female who presented to the emergency room with severe right buttock pain as well as bilateral lower extremity weakness. Her symptoms started 2 weeks prior to admission. She also has a history of anxiety. She is seen by Dr. Avalos in the outpatient setting. Today is my 1st encounter with the patient. Chart reviewed. * L1 compression fracture Status post kyphoplasty * cervical stenosis at L4 and 5 Status post arthrodesis and fusion * anxiety on chronic benzodiazepine * acute left corneal abrasion after surgery Was given a patch to wear * interstitial lung disease with chronic immune suppression Home med continue * hypertension On lisinopril/bp stable *Plan: likely dc later today per neurosurgery Subjective: Fabby's pain is well controlled/ no diff w swallowing. Objective: Vital Signs Temp Pulse Resp BP Pulse Ox 37.1 C 103 H 16 130/69 H 91 L 02/25/17 11:41 02/25/17 11:41 02/25/17 11:41 02/25/17 12:14 02/25/17 11:41 Laboratory Results 02/24/17 04:15 02/24/17 04:15 02/24/17 02/25/17 02/26/17 05:59 05:59 05:59 Intake Total 2200 Output Total 550 1000 Balance 1650 -1000 PT 11.7 SEC (12.0-15.0) L 02/18/17 12:50 INR 0.87 (0.83-1.16) 02/18/17 12:50 - Physical Exam Constitutional: no apparent distress, appears nourished Eyes: PERRL Ears, Nose, Mouth, Throat: hearing normal Cardiovascular: no murmur, rub, or gallop Respiratory: no respiratory distress Gastrointestinal: normoactive bowel sounds Skin: warm Musculoskeletal: generalized weakness Neurologic: AAOx3 Psychiatric: interacting appropriately, not anxious ICD10 Worksheet Patient Problems: Problems Problem Status Onset Back pain Acute Anxiety Active ESBL (extended spectrum beta-lactamase) producing bacteria infection Acute ~ Strain of right hip Acute
--- NOTE | 2017-02-25 16:16 | ASMTCMCOM ---
CM Note CM Note Notes: Pt medically stable for d/c w continued services of [facility], no CM d/c needs identified. Date Signed: 02/25/2017 04:15 PM Electronically Signed By:YOJANA Marcos
[2017-02-26] MEDS ORDERED: ENOXAPARIN 40 MG/0.4 ML SYR SC SCH (09:00)
--- NOTE | 2017-02-26 15:47 | ASDISCHSUM ---
Discharge Information Plan Status:Home with No Needs Medically Cleared to Leave: Discharge Date:02/25/2017 04:35 PM CM D/C Disposition:Home, Routine, Self-Care ADT D/C Disposition:Home, Routine, Self-Care Projected Discharge Date:02/25/2017 04:35 PM Transportation at D/C: Discharge Delay Reason: Follow-Up Date:02/25/2017 04:35 PM Discharge Slot: Final Diagnosis: Placement Information Patient Contact Information Contact Name:EZ Relationship:Daughter Address:[address] City:[place] Alternate Phone: [facility]/Zip Code:[place] [address] Email: Financial Information Financial Class: Primary Plan Desc:MEDICARE INPATIENT Primary Plan Number:[id number] Secondary Plan Desc: [facility] Secondary Plan Number:[id number] Assessment Information [facility] CM Progress Note CM Note CM Note Notes: Patient scheduled for surgery next Wednesday. dishcarged needs to be determined after surgery. CM to follow. Date Signed: 02/19/2017 11:45 AM Electronically Signed By:Maria A Kaur RN [facility] CM Progress Note CM Note CM Note Notes: Pt still scheduled for spinal surgery tomorrow, therapies will re-eval after surgery and CM will monitor therapy recs for d/c needs. Date Signed: 02/22/2017 03:15 PM Electronically Signed By:YOJANA Marcos [facility] CM Progress Note CM Note CM Note Notes: Pt medically stable for d/c w continued services of [facility], no CM d/c needs identified. Date Signed: 02/25/2017 04:15 PM Electronically Signed By:YOJANA Marcos Intervention Information Intervention Type:*Incorrect Registration Date of Service:02/19/2017 12:21 PM Patient Type:Observation Staff Member:GRETCHEN Diaz, Sasha Hours: Discipline: Severity: Comment: Intervention Type:*IM-Signed Date of Service:02/25/2017 08:35 AM Patient Type:Inpatient Staff Member:Heidy Kenney Hours: Discipline: Severity: Comment:
== END 2017-02-25 16:35 | disposition home or self-care (01) | DRG 472 ==
LOC: OBSVTOIN 19:41 → F3N 20:17
PROVIDERS: ADMIT Neurological Surgery; ATTEND Neurological Surgery
PROC: B02BY0Z Computerized Tomography (CT Scan) of Spinal Cord using Other Contrast, Unenhanced and Enhanced (ICD-10-PCS; 2017-02-18)
PROC: 3E0S33Z Introduction of Anti-inflammatory into Epidural Space, Percutaneous Approach (ICD-10-PCS; 2017-02-19)
PROC: 3E0S3BZ Introduction of Anesthetic Agent into Epidural Space, Percutaneous Approach (ICD-10-PCS; 2017-02-19)
PROC: 0RG10A0 Fusion of Cervical Vertebral Joint with Interbody Fusion Device, Anterior Approach, Anterior Column, Open Approach (ICD-10-PCS; principal; 2017-02-23 13:30)
PROC: 0QS03ZZ Reposition Lumbar Vertebra, Percutaneous Approach (ICD-10-PCS; principal; 2017-02-23 13:30)
PROC: 01PY0MZ Removal of Neurostimulator Lead from Peripheral Nerve, Open Approach (ICD-10-PCS; principal; 2017-02-23 13:30)
PROC: 0QU03JZ Supplement Lumbar Vertebra with Synthetic Substitute, Percutaneous Approach (ICD-10-PCS; principal; 2017-02-23 13:30)
DX: M47.12 Other spondylosis with myelopathy, cervical region (principal); M84.58XA Pathological fracture in neoplastic disease, other specified site, initial encounter for fracture; T85.191A Other mechanical complication of implanted electronic neurostimulator of peripheral nerve electrode (lead), initial encounter; M48.02 Spinal stenosis, cervical region; I10 Essential (primary) hypertension; F31.9 Bipolar disorder, unspecified; F41.9 Anxiety disorder, unspecified; Z87.891 Personal history of nicotine dependence; Z23 Encounter for immunization
CPT/HCPCS: 92526-GN; 92610-GN; 96374; 97116-GP; 97161-GP; 97164-GP; 97165-GO; 97168-GO; 97530-GP; 97535-GO; C1713; C1894; G0008; G8978-GP-CI; G8979-GP-CI; G8987-GO-CI; G8987-GO-CJ; G8988-GO-CI; G8989-GO-CI; G8996-GN-CH; G8996-GN-CI; G8997-GN-CH; G8997-GN-CI; G8998-GN-CI; J0171; J0690; J1100; J1170; J2060; J2250; J2370; J2405; J2704; J3010; J3301; Q9967

== ENCOUNTER 2017-04-16 17:54 | Emergency (ER) | payer OTHER, BC ==
[2017-04-16 18:01] VITALS: RESP 18
--- NOTE | 2017-04-16 18:22 | EDPHY ---
H & P Time Seen by Provider: 04/16/17 18:09 HPI/ROS: CHIEF COMPLAINT: Left arm injury HISTORY OF PRESENT ILLNESS: Patient was leaving the physical therapist when she fell injuring her left side. Complains of pain in the left elbow and wrist which is worse with movement. This happened at 11:00 a.m.. No other injuries. REVIEW OF SYSTEMS: No loss of consciousness, no neck or back pain. PAST MEDICAL HISTORY: Includes COPD, cervical and lumbar spine surgery, depression and neuropathy. Social history: General Appearance: Alert and conversant, cooperative. Left shoulder nontender, normal range of motion of the shoulder. She has pain with extension of the left elbow but her humerus is not tender. Forearm is only tender at the distal radius and including the snuffbox but the hand is nontender. Normal motor sensory and capillary refill in the hand. Bruising and some tenderness on the proximal 2/3 of the metacarpals on the small and ring fingers. No rotation with flexion. No other hand tenderness. No midline spinal tenderness. Can rotate and abduct shoulder without pain. Emergency Department course/MDM: 1829: Now patient complaining of neck pain and tenderness, CT of the cervical spine ordered. 1917: Results discussed; possible radial styloid fracture, does have snuffbox tenderness, possible radial head or scaphoid fracture also discussed. Sling and thumb spica splint and mandatory Ortho follow-up at [facility]. Wrist x-ray reviewed, does cover all metacarpals on the ulnar side where she has pain. CT cervical spine negative per Ramona except old, 1949. Smoking Status: Former smoker Constitutional: Initial Vital Signs Temperature (C) 36.7 C 04/16/17 17:57 Heart Rate 78 04/16/17 17:57 Respiratory Rate 18 04/16/17 17:57 Blood Pressure 116/81 H 04/16/17 17:57 O2 Sat (%) 94 04/16/17 17:57 O2 Delivery Mode Room Air Allergies/Adverse Reactions: morphine Allergy (Mild, Verified 04/16/17 17:57) Vomiting Home Medications: Medication Instructions Recorded Cholecalciferol Vit D3 [Vitamin D3 1,000 units PO DAILY 04/12/12 (*)] Lisinopril [Zestril 10 mg (*)] 10 mg PO DAILY@12 04/12/12 Multivitamins [Multivitamin (*)] 1 each PO DAILY 04/12/12 ALPRAZolam [Xanax 1 MG (*)] 1 mg PO HS PRN 12/22/16 LORazepam [Ativan (*)] 1 mg PO DAILY 12/22/16 Ondansetron Odt [Zofran Odt 4 mg 4 mg PO DAILY PRN 12/22/16 (*)] PARoxetine HCL [Paxil 20mg (*)] 20 mg PO DAILY@12/22/16 buPROPion XL [Wellbutrin 150mg XL] 300 mg PO DAILY@12/22/16 traZODone [traZODONE 100MG (*)] 100 mg PO HS 12/22/16 Mycophenolate Mofetil [Cellcept] 500 mg PO DAILY@12/23/16 lamoTRIgine [LamICTAL 100 MG (*)] 100 mg PO DAILY 02/19/17 Acetaminophen [Tylenol ES 500 mg 1,000 mg PO Q8HRS tab 02/25/17 (*)] oxyCODONE IR [Oxycodone Ir (*)] 5 - 10 mg PO Q3HRS PRN #90 tab 02/25/17 oxyCODONE/APAP 5/325 [Percocet] 1 - 2 tab PO Q4-6PRN PRN #11 tab 04/16/17 MDM/Departure - MDM Imaging Results: Imaging Impressions Elbow X-Ray 04/16/17 18:20 Impression: Severe degenerative change with loose bodies. No evidence for acute fracture. Forearm X-Ray 04/16/17 18:20 Impression: No evidence for acute osseous abnormality left forearm. Wrist X-Ray 04/16/17 18:20 Impression: No evidence for acute fracture left wrist. Severe degenerative change first carpometacarpal joint. Cervical Spine CT 04/16/17 18:30 Impression: No evidence for acute fracture. Interval fusion C4-C5 with good alignment. Multilevel degenerative change of the cervical spine is similar to February 2017. Results called and discussed with Dr. Juancarlos Joy, 04/16/2017, 19:52. Medications Given: Discontinued Medications Ibuprofen (Motrin) 600 mg PO EDNOW ONE Stop: 04/16/17 20:10 Last Admin: 04/16/17 20:15 Dose: 600 mg Oxycodone/Acetaminophen (Percocet 5/325) 1 tab PO EDNOW ONE Stop: 04/16/17 20:10 Last Admin: 04/16/17 20:15 Dose: 1 tab - Depart Disposition: Home, Routine, Self-Care Clinical Impression: Sprain of wrist, left Qualifiers: Encounter type: initial encounter Qualified Code(s): S63.502A - Unspecified sprain of left wrist, initial encounter Contusion of elbow, left Qualifiers: Encounter type: initial encounter Qualified Code(s): S50.02XA - Contusion of left elbow, initial encounter Condition: Good Instructions: Wrist Sprain (ED) Additional Instructions: Wear sling and splint. Call Orthopedics from [facility] on Wednesday for follow-up in the office early next week. It is possible that you would have a fracture in the scaphoid bone of your left wrist or the radial head of your left elbow Prescriptions: oxyCODONE/APAP 5/325 [Percocet] 1 - 2 tab PO Q4-6PRN PRN #11 tab PRN Reason: Pain Referrals: Jordon Chester MD [Medical Doctor] - As per Instructions
[2017-04-16] MEDS ORDERED: OXYCODONE/APAP 5/325 TAB PO ONE (20:09)
[2017-04-16] MEDS ORDERED: IBUPROFEN 600 MG TAB PO ONE (20:09)
[2017-04-16 20:30] VITALS: BP 116/79; PULSE 91; TEMP 98.2; O2SAT 93
== END 2017-04-16 20:31 | disposition home or self-care (01) ==
DX: S63.502A Unspecified sprain of left wrist, initial encounter (principal); S50.02XA Contusion of left elbow, initial encounter; J44.9 Chronic obstructive pulmonary disease, unspecified; Z87.891 Personal history of nicotine dependence; W18.39XA Other fall on same level, initial encounter
CPT/HCPCS: 72125; 73080; 73090; 73110; 99284; A4565; L3807

== ENCOUNTER 2017-07-08 12:03 | Inpatient (IN) | payer OTHER, BC ==
[2017-07-08] MEDS ORDERED: NS 500 ML IV ONE (12:08)
[2017-07-08] MEDS ORDERED: IPRATROPIUM/ALBUTEROL 3 ML DEYVIAL IH ONE (12:08)
[2017-07-08] MEDS ORDERED: methylPREDNISolone SOD SUCC 125 MG/2 ML VIAL IVP ONE (12:08)
--- NOTE | 2017-07-08 12:11 | EDPHY ---
H & P Time Seen by Provider: 07/08/17 12:05 HPI/ROS: CHIEF COMPLAINT: Shortness of breath HISTORY OF PRESENT ILLNESS: Patient is a 77-year-old female with a history of interstitial lung disease stents emergency depart with increasing shortness of breath. Patient states that over the past week she has had increased fatigue and shortness of breath. She normally has been wearing her oxygen at night but is required oxygen during the day as well. She noticed that when she took her oxygen off to brush her teeth her oxygen saturation went to 60%. Patient also describes mild headache. She has no chest pain. She has had no productive cough. No abdominal pain. No nausea or vomiting. No leg pain or swelling. REVIEW OF SYSTEMS: My complete review of systems is negative except as mentioned in the HPI. Past Medical/Surgical History: Includes interstitial lung disease Smoking Status: Former smoker Physical Exam: Vitals noted GENERAL: No acute distress, alert. HEENT: Eyes normal to inspection, normal pharynx, no signs of dehydration. NECK: [No thyromegaly, no lymphadenopathy, supple. RESPIRATORY: Coarse breath sounds bilaterally, no rales, rhonchi or wheezing. CVS: Regular rate and rhythm, no rubs, murmurs, or gallops. ABDOMEN: Soft, nontender, nondistended, no organomegaly. BACK: Normal to inspection, no CVA tenderness. SKIN: Normal color, no rash, warm, dry. No pallor. EXTREMITIES: No pedal edema, no calf tenderness, no Homans sign or cords, no joint swelling. NEURO/PSYCH: Alert and oriented x3, normal mood and affect, normal motor sensory exam. No obvious cranial nerve deficit. Constitutional: Initial Vital Signs Temperature (C) 37 C 07/08/17 12:11 Heart Rate 95 07/08/17 12:11 Respiratory Rate 22 H 07/08/17 12:11 Blood Pressure 161/102 H 07/08/17 12:11 O2 Sat (%) 94 07/08/17 12:11 O2 Delivery Mode Nasal Cannula O2 (L/minute) 5 Allergies/Adverse Reactions: morphine Allergy (Mild, Verified 04/16/17 17:57) Vomiting Home Medications: Medication Instructions Recorded Cholecalciferol Vit D3 [Vitamin D3 1,000 units PO DAILY 04/12/12 (*)] Lisinopril [Zestril 10 mg (*)] 10 mg PO DAILY@12 04/12/12 Multivitamins [Multivitamin (*)] 1 each PO DAILY 04/12/12 ALPRAZolam [Xanax 1 MG (*)] 1 mg PO HS PRN 12/22/16 LORazepam [Ativan (*)] 1 mg PO DAILY 12/22/16 Ondansetron Odt [Zofran Odt 4 mg 4 mg PO DAILY PRN 12/22/16 (*)] PARoxetine HCL [Paxil 20mg (*)] 20 mg PO DAILY@12 12/22/16 buPROPion XL [Wellbutrin 150mg XL] 300 mg PO DAILY@12/22/16 traZODone [traZODONE 100MG (*)] 100 mg PO HS 12/22/16 Mycophenolate Mofetil [Cellcept] 500 mg PO DAILY@,12/23/16 lamoTRIgine [LamICTAL 100 MG (*)] 100 mg PO DAILY 02/19/17 Acetaminophen [Tylenol ES 500 mg 1,000 mg PO Q8HRS tab 02/25/17 (*)] oxyCODONE IR [Oxycodone Ir (*)] 5 - 10 mg PO Q3HRS PRN #90 tab 02/25/17 oxyCODONE/APAP 5/325 [Percocet] 1 - 2 tab PO Q4-6PRN PRN #11 tab 04/16/17 Medical Decision Making - Diagnostics Imaging Results: Imaging Impressions Chest X-Ray 07/08/17 12:08 Impression: Suspect pulmonary edema. ED Course/Re-evaluation: I met EMS on arrival in took report from the percussion instructor. In the emergency department I discussed possible etiologies with the patient. I answered all her questions. Laboratory studies, EKG and chest x-ray were ordered. Patient was given a DuoNeb and Solu-Medrol 125 mg IV for her shortness of breath. Sinus rhythm at 87. Atrial premature complex. First-degree AV block. LVH. Patient's white count is normal. Mildly anemic. Chemistry panel reveals a low potassium at 3.1. Patient had elevated D-dimer at 0.84 BNP 184. Troponin negative. Influenza negative. CT angio chest: Please refer the dictated report by Dr. Greene. Patient has increased ground-glass appearance bilaterally in upper lobes. No pulmonary embolus. I discussed the results with the patient. I answered all her questions. I paged hospital service. I discussed case with Dr. Cheng. He accepts patient. Differential Diagnosis: My differential includes but is not limited to bronchitis, pneumonia, interstitial lung disease, reactive airway disease, empyema, ACS, acute UT, bacteremia, sepsis - Data Points Laboratory Results: Laboratory Results 07/08/17 12:15 07/08/17 12:15 07/08/17 07/08/17 07/08/17 12:55 12:15 12:15 WBC RBC Hgb Hct MCV MCH MCHC RDW Plt Count MPV Neut % (Auto) Lymph % (Auto) [place] % (Auto) Eos % (Auto) Baso % (Auto) Nucleat RBC Rel Count Absolute Neuts (auto) Absolute Lymphs (auto) Absolute Monos (auto) Absolute Eos (auto) Absolute Basos (auto) Absolute Nucleated RBC Immature Gran % Immature Gran # D-Dimer 0.84 ug/mLFEU H ug/mLFEU (0.00-0.50) Sodium 140 mEq/L mEq/L (135-145) Potassium 3.1 mEq/L L mEq/L (3.5-5.2) Chloride 102 mEq/L mEq/L (97-110) Carbon Dioxide 22 mEq/l mEq/l (22-31) Anion Gap 16 mEq/L mEq/L (8-16) BUN 12 mg/dL mg/dL (7-23) Creatinine 0.8 mg/dL mg/dL (0.6-1.0) Estimated GFR > 60 Glucose 94 mg/dL mg/dL (70-100) Calcium 9.2 mg/dL mg/dL (8.5-10.4) Troponin I < 0.012 ng/mL ng/mL (0.000-0.034) NT-Pro-B Natriuret Pep 154 pg/mL pg/mL (0-450) Nasal Influenza A PCR NEGATIVE FOR FLU A (NEGATIVE) Nasal Influenza B PCR NEGATIVE FOR FLU B (NEGATIVE) 07/08/17 12:15 WBC 6.62 10^3/uL 10^3/uL (3.80-9.50) RBC 4.20 10^6/uL 10^6/uL (4.18-5.33) Hgb 12.3 g/dL L g/dL (12.6-16.3) Hct 36.7 % L % (38.0-47.0) MCV 87.4 fL fL (81.5-99.8) MCH 29.3 pg pg (27.9-34.1) MCHC 33.5 g/dL g/dL (32.4-36.7) RDW 13.2 % % (11.5-15.2) Plt Count 310 10^3/uL 10^3/uL (150-400) MPV 8.7 fL fL (8.7-11.7) Neut % (Auto) 67.7 % % (39.3-74.2) Lymph % (Auto) 13.9 % L % (15.0-45.0) [place] % (Auto) 13.1 % H % (4.5-13.0) Eos % (Auto) 4.2 % % (0.6-7.6) Baso % (Auto) 0.6 % % (0.3-1.7) Nucleat RBC Rel Count 0.0 % % (0.0-0.2) Absolute Neuts (auto) 4.48 10^3/uL 10^3/uL (1.70-6.50) Absolute Lymphs (auto) 0.92 10^3/uL L 10^3/uL (1.00-3.00) Absolute Monos (auto) 0.87 10^3/uL H 10^3/uL (0.30-0.80) Absolute Eos (auto) 0.28 10^3/uL 10^3/uL (0.03-0.40) Absolute Basos (auto) 0.04 10^3/uL 10^3/uL (0.02-0.10) Absolute Nucleated RBC 0.00 10^3/uL 10^3/uL (0-0.01) Immature Gran % 0.5 % % (0.0-1.1) Immature Gran # 0.03 10^3/uL 10^3/uL (0.00-0.10) D-Dimer Sodium Potassium Chloride Carbon Dioxide Anion Gap BUN Creatinine Estimated GFR Glucose Calcium Troponin I NT-Pro-B Natriuret Pep Nasal Influenza A PCR Nasal Influenza B PCR Medications Given: Discontinued Medications Albuterol/Ipratropium (Duoneb) 3 ml IH EDNOW ONE Stop: 07/08/17 12:09 Last Admin: 07/08/17 12:26 Dose: 3 ml Sodium Chloride (Ns) 500 mls @ 1,000 mls/hr IV EDNOW ONE PRN Reason: Protocol Stop: 07/08/17 12:37 Last Admin: 07/08/17 12:26 Dose: 500 mls Methylprednisolone Sodium Succinate (Solu-Medrol) 125 mg IVP EDNOW ONE Stop: 07/08/17 12:09 Last Admin: 07/08/17 12:26 Dose: 125 mg Potassium Chloride (Potassium Chloride Oral Liquid) 60 meq PO EDNOW ONE Stop: 07/08/17 14:00 Last Admin: 07/08/17 14:17 Dose: 60 meq Departure - Departure Disposition: [facility] Inpatient Acute Clinical Impression: Shortness of breath, Interstitial lung disease Condition: Good Referrals: Patient,NotPresent [Unknown] - As per Instructions
[2017-07-08 12:33] LABS: PLATELET COUNT 310 10^3/uL (150-400)
--- NOTE | 2017-07-08 13:05 | CPEKG ---
Heart Rate: 87 RR Interval: 690 P-R Interval: 256 QRSD Interval: 98 QT Interval: 380 QTC Interval: 457 P [place]: 31 QRS [place]: -23 T Wave [place]: 123 EKG Severity - ABNORMAL ECG - EKG Impression: SINUS RHYTHM EKG Impression: ATRIAL PREMATURE COMPLEX EKG Impression: FIRST DEGREE AV BLOCK EKG Impression: LVH WITH SECONDARY REPOLARIZATION ABNORMALITY Electronically Signed By: Rebecca Lu 08-Jul-2017 15:10:42
[2017-07-08] MEDS ORDERED: IOPAMIDOL (ISOVUE 370) 100 ML BTL IV ONE (13:48)
[2017-07-08] MEDS ORDERED: POTASSIUM CL 20 MEQ/15 ML UDCUP PO ONE (13:59)
[2017-07-08] MEDS ORDERED: ONDANSETRON 4 MG/2 ML VIAL IVP PRN (15:04)
[2017-07-08] MEDS ORDERED: ONDANSETRON DISINTEGRATING 4 MG TAB PO PRN (15:04)
[2017-07-08] MEDS ORDERED: ALBUTEROL 3 ML DEYVIAL IH PRN (15:04)
[2017-07-08] MEDS ORDERED: LORazepam 1 MG TAB PO ONE (15:06)
[2017-07-08] MEDS ORDERED: LORazepam 1 MG TAB ONE (15:07)
[2017-07-08] MEDS ORDERED: PROTOCOL POTASSIUM 1 DOSE MISC PRN (15:09)
[2017-07-08] MEDS ORDERED: PROTOCOL MAGNESIUM 1 DOSE IV PRN (15:09)
--- NOTE | 2017-07-08 15:13 | PDGENHP ---
History and Physical - Chief Complaint SOB - History of Present Illness 77 yo Female with hx of ILD and nocturnal hypoxemia p/w SOB x several days, now requiring O2 during the day. Reports RA sat was in the 60's. Imaging in the ED c /w interstitial lung disease flare. Started on IV steroids and inhaler with some improvement. She is an established patient of Dr. John Piedra at [facility] and she last saw him about 4 months ago and at that time her function tests and disease progression were actually better per her report. She has f/u with in around the middle of July. She is afebrile, denies cardiac disease, no cp, palpitations, or leg swelling. No N/V/D. CXR: increased interstitial markings (personally reviewed) CTA chest: no P.E., no pleural effusions. Patchy ground glass opacities bilaterally likely active alveolitis, bronchiectasis, underlying interstitial lung disease which has progressed D-Dimer elevated but negative CTA No leukocytosis BNP unremarkable Trop unremarkable Negative influenza - Past Medical History hypertension, hyperlipidemia, osteoporosis (per report on recent DEXA), depression and anxiety w/ chronic benzodiazepine dependency. interstitial lung disease. peripheral neuropathy. serotonin syndrome 2012, L 1 compression fracture, former tobacco use - Surgical History Additional surgical history: lumbar KATI. lumbar disc surg. pain stimulator. . hernia - Family History Additional family history: mother w/ TIA, no VTE - Social History Smoking Status: Former smoker Alcohol Use: Occasionally Drug Use: None Additional social history: lives independently History Information - Allergies/Home Medication List Allergies/Adverse Reactions: morphine Allergy (Mild, Verified 04/16/17 17:57) Vomiting Home Medications: Cholecalciferol Vit D3 [Vitamin D3 (*)] 1,000 units PO DAILY 04/12/12 [Last Taken 07/07/17 09:00] Lisinopril [Zestril 10 mg (*)] 10 mg PO DAILY@12 04/12/12 [Last Taken 07/07/17 09:00] Multivitamins [Multivitamin (*)] 1 each PO DAILY 04/12/12 [Last Taken 07/07/17 09:00] ALPRAZolam [Xanax 1 MG (*)] 1 mg PO Q12H PRN 12/22/16 [Last Taken 07/07/17 21:00 ] PARoxetine HCL [Paxil 20mg (*)] 20 mg PO DAILY@15 12/22/16 [Last Taken 07/07/17 15:00] buPROPion XL [Wellbutrin 150mg XL] 150 mg PO DAILY@12 12/22/16 [Last Taken 07/07 09:00] Mycophenolate Mofetil [Cellcept] 1,000 mg PO DAILY@,12/23/16 [Last Taken 14:00] lamoTRIgine [LamICTAL 100 MG (*)] 100 mg PO DAILY 02/19/17 [Last Taken 07/07/17 09:00] Acetaminophen [Tylenol ES 500 mg (*)] 2,000 mg PO DAILY PRN 07/08/17 [Last Taken 07/07/17 15:00] Aspirin EC [Aspirin EC 81 mg (*)] 81 mg PO DAILY 07/08/17 [Last Taken 07/07/17 09:00] Calcium Carbonate [Oyster Shell Calcium 500 mg (*)] 1,250 mg PO DAILY 07/08/17 [ Last Taken 07/07/17 09:00] Dexlansoprazole [Dexilant] 60 mg PO DAILY 07/08/17 [Last Taken 07/07/17 09:00] LORazepam [Ativan (*)] 0.5 mg PO BID 07/08/17 [Last Taken 07/07/17 21:00] [place]-3 Fatty Acids [Fish Oil 1000 mg (*)] 1,000 mg PO DAILY 07/08/17 [Last Taken 07/07/17 09:00] Omeprazole 40 mg PO DAILY 07/08/17 [Last Taken 07/07/17 09:00] Ranitidine HCl 300 mg PO HS 07/08/17 [Last Taken 07/07/17 21:00] traMADol [Ultram 50 mg (*)] 50 mg PO Q6 PRN 07/08/17 [Last Taken Unknown] traZODone [traZODONE 50MG (*)] 50 mg PO HS 07/08/17 [Last Taken 07/07/17 21:00] I have personally reviewed and updated: medical history, social history - Past Medical History hypertension, hyperlipidemia, osteoporosis (per report on recent DEXA) Additional medical history: depression and anxiety w/ chronic benzodiazepine dependency. interstitial lung disease. peripheral neuropathy. serotonin syndrome 2012 - Surgical History Additional surgical history: lumbar KATI. lumbar disc surg. pain stimulator. . hernia - Family History Additional family history: mother w/ TIA, no VTE - Social History Smoking Status: Former smoker Additional social history: lives independently Review of Systems Review of Systems: ROS: 10pt was reviewed & negative except for what was stated in HPI & below Physical Exam Physical Exam: Temp Pulse Resp BP Pulse Ox 37.2 C 97 21 H 156/103 H 90 L 07/08/17 14:00 07/08/17 14:00 07/08/17 14:00 07/08/17 14:00 07/08/17 14:00 Constitutional: no apparent distress Eyes: PERRL, EOMI Ears, Nose, Mouth, Throat: moist mucous membranes, hearing normal Cardiovascular: regular rate and rhythym, No JVD, No edema Respiratory: no respiratory distress, reduced air movement Gastrointestinal: normoactive bowel sounds Genitourinary: no bladder fullness Skin: warm Musculoskeletal: generalized weakness Neurologic: AAOx3 Psychiatric: interacting appropriately, not anxious, not encephalopathic Lymph, Heme, Immunologic: No petechiae Lab Data & Imaging Review 07/08/17 12:15 07/08/17 12:15 WBC 6.62 10^3/uL (3.80-9.50) 07/08/17 12:15 RBC 4.20 10^6/uL (4.18-5.33) 07/08/17 12:15 Hgb 12.3 g/dL (12.6-16.3) L 07/08/17 12:15 Hct 36.7 % (38.0-47.0) L 07/08/17 12:15 MCV 87.4 fL (81.5-99.8) 07/08/17 12:15 MCH 29.3 pg (27.9-34.1) 07/08/17 12:15 MCHC 33.5 g/dL (32.4-36.7) 07/08/17 12:15 RDW 13.2 % (11.5-15.2) 07/08/17 12:15 Plt Count 310 10^3/uL (150-400) 07/08/17 12:15 MPV 8.7 fL (8.7-11.7) 07/08/17 12:15 Neut % (Auto) 67.7 % (39.3-74.2) 07/08/17 12:15 Lymph % (Auto) 13.9 % (15.0-45.0) L 07/08/17 12:15 [place] % (Auto) 13.1 % (4.5-13.0) H 07/08/17 12:15 Eos % (Auto) 4.2 % (0.6-7.6) 07/08/17 12:15 Baso % (Auto) 0.6 % (0.3-1.7) 07/08/17 12:15 Nucleat RBC Rel Count 0.0 % (0.0-0.2) 07/08/17 12:15 Absolute Neuts (auto) 4.48 10^3/uL (1.70-6.50) 07/08/17 12:15 Absolute Lymphs (auto) 0.92 10^3/uL (1.00-3.00) L 07/08/17 12:15 Absolute Monos (auto) 0.87 10^3/uL (0.30-0.80) H 07/08/17 12:15 Absolute Eos (auto) 0.28 10^3/uL (0.03-0.40) 07/08/17 12:15 Absolute Basos (auto) 0.04 10^3/uL (0.02-0.10) 07/08/17 12:15 Absolute Nucleated RBC 0.00 10^3/uL (0-0.01) 07/08/17 12:15 Immature Gran % 0.5 % (0.0-1.1) 07/08/17 12:15 Immature Gran # 0.03 10^3/uL (0.00-0.10) 07/08/17 12:15 D-Dimer 0.84 ug/mLFEU (0.00-0.50) H 07/08/17 12:15 Sodium 140 mEq/L (135-145) 07/08/17 12:15 Potassium 3.1 mEq/L (3.5-5.2) L 07/08/17 12:15 Chloride 102 mEq/L (97-110) 07/08/17 12:15 Carbon Dioxide 22 mEq/l (22-31) 07/08/17 12:15 Anion Gap 16 mEq/L (8-16) 07/08/17 12:15 BUN 12 mg/dL (7-23) 07/08/17 12:15 Creatinine 0.8 mg/dL (0.6-1.0) 07/08/17 12:15 Estimated GFR > 60 07/08/17 12:15 Glucose 94 mg/dL (70-100) 07/08/17 12:15 Calcium 9.2 mg/dL (8.5-10.4) 07/08/17 12:15 Troponin I < 0.012 ng/mL (0.000-0.034) 07/08/17 12:15 NT-Pro-B Natriuret Pep 154 pg/mL (0-450) 07/08/17 12:15 Nasal Influenza A PCR NEGATIVE FOR FLU A (NEGATIVE) 07/08/17 12:55 Nasal Influenza B PCR NEGATIVE FOR FLU B (NEGATIVE) 07/08/17 12:55 Assessment & Plan Assessment: #Acute Respiratory Failure #ILD with exacerbation, Ground glass opacities indicative of Alveolitis, Bronchiectasis #HTN, with mild elevation #elevated D-Dimer, negative imaging for P.E. #Hypokalemia, s/p replacement in the E.D. #Generalized Weakness Plan: Admission Cont IV steroids Schedule and PRN nebs appropriate home meds monitor BP, home meds restarted Replace electrolytes, check Mg PT eval Lovenox for DVT proph
[2017-07-08] MEDS: IPRATROPIUM/ALBUTEROL 3 ML DEYVIAL IH SCH ×2 (15:27→20:27)
[2017-07-08] MEDS ORDERED: traMADol 50 MG TAB PO PRN (15:49)
[2017-07-08] MEDS: methylPREDNISolone SOD SUCC 125 MG/2 ML VIAL IVP SCH (20:16)
[2017-07-08] MEDS: FAMOTIDINE 20 MG TAB PO SCH (20:16)
[2017-07-08] MEDS: traZODone 50 MG TAB PO SCH (22:04)
[2017-07-08] MEDS: LORazepam 0.5 MG TAB PO SCH (22:04)
[2017-07-09] MEDS: methylPREDNISolone SOD SUCC 125 MG/2 ML VIAL IVP SCH ×4 (00:25→18:20)
[2017-07-09] MEDS: ACETAMINOPHEN 325 MG TAB PO PRN ×2 (02:06→18:19)
[2017-07-09] MEDS: ALPRAZolam 1 MG TAB PO PRN ×2 (02:06→15:56)
[2017-07-09 05:09] LABS: PLATELET COUNT 322 10^3/uL (150-400)
[2017-07-09] MEDS: IPRATROPIUM/ALBUTEROL 3 ML DEYVIAL IH SCH ×4 (06:36→21:37)
[2017-07-09] MEDS: MYCOPHENOLATE MOFETIL 500 MG PO SCH ×2 (08:30→15:50)
[2017-07-09] MEDS: PANTOPRAZOLE SODIUM 40 MG TAB PO SCH ×2 (08:45→08:52)
[2017-07-09] MEDS: MULTIVITAMINS 1 EACH TAB PO SCH (08:50)
[2017-07-09] MEDS: ASPIRIN EC 81 MG TAB PO SCH (08:50)
[2017-07-09] MEDS: LORazepam 0.5 MG TAB PO SCH ×2 (08:50→21:48)
[2017-07-09] MEDS: lamoTRIgine 100 MG TAB PO SCH (08:51)
[2017-07-09] MEDS: CHOLECALCIFEROL VIT D3 1,000 UNITS TAB PO SCH (08:51)
[2017-07-09] MEDS: OMEGA-3 FATTY ACIDS 1,000 MG CAP PO SCH (08:51)
[2017-07-09] MEDS: CALCIUM CARBONATE 500 MG TAB PO SCH (08:52)
[2017-07-09] MEDS: ENOXAPARIN 40 MG/0.4 ML SYR SC SCH (08:55)
[2017-07-09] MEDS ORDERED: Dexlansoprazole [Dexilant] 60 MG PO SCH (09:00)
[2017-07-09] MEDS ORDERED: DEXILANT 60MG PO SCH (09:15)
--- NOTE | 2017-07-09 10:39 | HOSPPROG ---
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 cxr and ct images reviewed/interp by me Objective: Vital Signs Temp Pulse Resp BP Pulse Ox 36.8 C 100 20 138/80 H 89 L 07/09/17 08:19 07/09/17 08:19 07/09/17 08:19 07/09/17 08:19 07/09/17 08:19 Laboratory Results 07/09/17 04:40 07/09/17 04:40 07/08/17 07/09/17 07/10/17 05:59 05:59 05:59 Intake Total 500 Balance 500 - Physical Exam Constitutional: no apparent distress, appears nourished Eyes: PERRL, anicteric sclera Ears, Nose, Mouth, Throat: moist mucous membranes, hearing normal Cardiovascular: regular rate and rhythym, no murmur, rub, or gallop Respiratory: no respiratory distress, rhonchi, other (basilar crackles) Gastrointestinal: normoactive bowel sounds, soft, non-tender abdomen Genitourinary: No castellanos in urethra Skin: warm, normal color Musculoskeletal: full muscle strength Neurologic: AAOx3 ICD10 Worksheet Patient Problems: Problems Problem Status Onset Interstitial lung disease Acute Shortness of breath Acute Anxiety Active Back pain Acute ESBL (extended spectrum beta-lactamase) producing bacteria infection Acute ~ Strain of right hip Acute
[2017-07-09] MEDS: buPROPion XL 150 MG TAB PO SCH (12:23)
[2017-07-09] MEDS: LISINOPRIL 10 MG TAB PO SCH (12:23)
--- NOTE | 2017-07-09 12:51 | PDMN ---
Medical Necessity Medical necessity: est los>2mn for acute resp failure, hypokalemia, weakness, and ILD w/exacerbation; admit for IV steroids, scheduled nebs, monitor BP and resume home meds, replace electrolytes, and PT eval; per order and H&P
[2017-07-09] MEDS: PARoxetine HCL 20 MG TAB PO SCH (15:09)
--- NOTE | 2017-07-09 16:16 | ASMTCMCOM ---
CM Note CM Note Notes: Pt admitted with interstitial lung disease and resp. failure. Pt has [facility] for 28/12 which includes an RN. Pt has no other DC needs. Date Signed: 07/09/2017 04:16 PM Electronically Signed By:Niya Waldrop LCSW
[2017-07-09] MEDS: traZODone 50 MG TAB PO SCH (21:48)
[2017-07-09] MEDS: FAMOTIDINE 20 MG TAB PO SCH (21:48)
[2017-07-10] MEDS ORDERED: POTASSIUM CL 20 MEQ TAB PO ONE
[2017-07-10] MEDS: methylPREDNISolone SOD SUCC 125 MG/2 ML VIAL IVP SCH ×3 (00:42→13:17)
[2017-07-10] MEDS: IPRATROPIUM/ALBUTEROL 3 ML DEYVIAL IH SCH ×4 (05:35→21:05)
[2017-07-10] MEDS ORDERED: PANTOPRAZOLE SODIUM 40 MG TAB PO SCH (09:00)
[2017-07-10] MEDS ORDERED: MYCOPHENOLATE MOFETIL 250 MG CAP PO SCH ×2 (09:00)
[2017-07-10] MEDS ORDERED: Dexlansoprazole [Dexilant] 60 MG PO SCH (09:00)
[2017-07-10] MEDS: ENOXAPARIN 40 MG/0.4 ML SYR SC SCH (09:27)
[2017-07-10] MEDS: MULTIVITAMINS 1 EACH TAB PO SCH (09:28)
[2017-07-10] MEDS: ASPIRIN EC 81 MG TAB PO SCH (09:28)
[2017-07-10] MEDS: LORazepam 0.5 MG TAB PO SCH ×2 (09:28→22:13)
[2017-07-10] MEDS: CHOLECALCIFEROL VIT D3 1,000 UNITS TAB PO SCH (09:28)
[2017-07-10] MEDS: lamoTRIgine 100 MG TAB PO SCH (09:28)
[2017-07-10] MEDS: OMEGA-3 FATTY ACIDS 1,000 MG CAP PO SCH (09:28)
[2017-07-10] MEDS: CALCIUM CARBONATE 500 MG TAB PO SCH (09:28)
[2017-07-10] MEDS: MYCOPHENOLATE MOFETIL 500 MG PO SCH (10:04)
[2017-07-10] MEDS: buPROPion XL 150 MG TAB PO SCH (13:17)
[2017-07-10] MEDS: LISINOPRIL 10 MG TAB PO SCH (13:17)
--- NOTE | 2017-07-10 14:17 | HOSPPROG ---
Hospitalist Progress Note Objective: Vital Signs Temp Pulse Resp BP Pulse Ox 36.6 C 100 20 149/103 H 92 07/10/17 12:05 07/10/17 12:53 07/10/17 12:53 07/10/17 12:05 07/10/17 12:53 Laboratory Results 07/09/17 04:40 07/10/17 04:12 07/09/17 07/10/17 07/11/17 05:59 05:59 05:59 Intake Total 500 590 Balance 500 590 ICD10 Worksheet Patient Problems: Problems Problem Status Onset Interstitial lung disease Acute Shortness of breath Acute Anxiety Active Back pain Acute ESBL (extended spectrum beta-lactamase) producing bacteria infection Acute ~ Strain of right hip Acute
--- NOTE | 2017-07-10 14:21 | HOSPPROG ---
Hospitalist Progress Note Assessment/Plan: 77 yo F w ILD p/w acute on chronic hypoxemic resp failure # Acute Hypoxic Respiratory Failure- presumed 2/2 progressive ILD - CT chest (personally reviewed and interpreted) chronic interstitial disease with finding c/w active alveolitis - bronchiectasis oxygen saturations 97% on 5L - cont IV steroids - cont inhaled beta agonists - consult pulmonary # ILD- CT as above - concern for progressing disease # anxiety: continue meds # proph: lmwh # dispo: inpt # code: dnr I have discussed the case with Dr. Wilkinson who will consult today for recommendations related to ILD Subjective: anxious Objective: Vital Signs Temp Pulse Resp BP Pulse Ox 36.6 C 100 20 149/103 H 92 07/10/17 12:05 07/10/17 12:53 07/10/17 12:53 07/10/17 12:05 07/10/17 12:53 Laboratory Results 07/09/17 04:40 07/10/17 04:12 07/09/17 07/10/17 07/11/17 05:59 05:59 05:59 Intake Total 500 590 Balance 500 590 - Physical Exam Constitutional: no apparent distress Eyes: anicteric sclera Ears, Nose, Mouth, Throat: moist mucous membranes Cardiovascular: regular rate and rhythym Respiratory: no respiratory distress Gastrointestinal: normoactive bowel sounds Genitourinary: no bladder fullness Skin: warm Musculoskeletal: No asymmetric calves Neurologic: AAOx3 Psychiatric: anxious Lymph, Heme, Immunologic: no cervical LAD ICD10 Worksheet Patient Problems: Problems Problem Status Onset Interstitial lung disease Acute Shortness of breath Acute Anxiety Active Back pain Acute ESBL (extended spectrum beta-lactamase) producing bacteria infection Acute ~ Strain of right hip Acute
[2017-07-10] MEDS: PARoxetine HCL 20 MG TAB PO SCH (14:45)
[2017-07-10] MEDS: MYCOPHENOLATE MOFETIL 250 MG CAP PO SCH (16:00)
--- NOTE | 2017-07-10 16:00 | GCON ---
[f rep st] CONSULTATION PULMONARY CRITICAL CARE CONSULTATION DATE OF CONSULTATION: 07/10/2017 REFERRING PHYSICIAN: Eliza Chandra MD REASON FOR REFERRAL: Evaluation and management of interstitial lung disease. HISTORY OF PRESENT ILLNESS: The patient is a 77-year-old woman known to me from outpatient followup for interstitial lung disease. She underwent a lung biopsy in 2011 and the biopsy findings and clini brenda findings were suggestive of fibrosing interstitial pneumonia, consistent with a fibrosing form of "hot tub" lung. She was treated with prednisone and mycophenolate, and prednisone was tapered off a bout 2 years ago. She has been doing quite well on 1 g twice daily. This was reduced to 1 g daily a bout a year ago. Since then, she has been doing very well, with stable mild dyspnea and minimal oxygen needs. At her last visit with Dr. John Piedra at [facility], he told her that her breathing tests were as good as they had been. At about that time or shortly before, the patient on her own started cutting down her mycophenolate to 500 mg most days. Occasionally a 1000 mg some days. Her respiratory status wa s really quite stable until about 3 weeks ago when she started to develop symptoms of some headache, weakness, and nausea. She feels she was also a bit dyspneic at the time, although that was tied in w ith weakness and she does not clearly describe dyspnea in the absence of the weakness. She felt that her headache and nausea were improving since the initial onset about 3 weeks ago, but h er weakness/dyspnea seem to be worsening a bit. She did not really have any problems with oxygenatio n specifically until she saw Dr. Hendricks 5 days ago when she was found to have hypoxemia with saturatio ns of 73% on room air. She was instructed to keep using her oxygen more frequently, but the next day had continued to have low oxygen levels off oxygen, so she presented to the hospital and was admitte d. She still feels more dyspneic than normal. She also had a cough that started about 5 days ago. It i s productive of green sputum. She has had no fevers, but has had some sweats. She does not feel muc h different since being hospitalized 5 days ago and being started on IV steroids. PAST MEDICAL HISTORY: Hypertension, hyperlipidemia, osteoporosis, depression/anxiety, peripheral lindy ropathy, serotonin syndrome. MEDICATIONS: At time of admission include lisinopril, alprazolam, paroxetine, bupropion, mycophenola te, Lamictal, acetaminophen, aspirin, Dexilant, lorazepam, omeprazole, ranitidine, and tramadol. ALLERGIES: Morphine. SOCIAL HISTORY: The patient is a former smoker. She lives independently and is quite active. FAMILY HISTORY: Unremarkable. REVIEW OF SYSTEMS: A 10-point review of systems adds nothing to the History of Present Illness. PHYSICAL EXAMINATION: GENERAL: The patient is awake, alert, in no acute distress. VITAL SIGNS: Bl ood pressure is 149/103. Pulse is 93. She is afebrile. Oxygen saturations are 92% on 3 L at rest. HEENT: Normocephalic and atraumatic. No icterus. NECK: No JVD. Trachea is midline. CHEST: She has bibasilar fine rales. CARDIAC: Regular rate and rhythm without murmur. ABDOMEN: Soft, nontend er. Bowel sounds are present. EXTREMITIES: No clubbing, cyanosis, or edema. NEURO: The patient i s awake and alert. There are no gross motor or sensory deficits. LABORATORY: Chemistry group is remarkable for a blood glucose of 230, up from 94 at the time of admi ssion. A BNP was 154. Troponin is less than 0.12. Hemoglobin is 12.4. White blood count of 6.0 wi th a normal differential. IMAGING: A CT scan of the chest is negative for pulmonary emboli. It shows slight upper lobe-predom inant patchy ground-glass infiltrates that are new/progressed compared to 2015. They also show inser kathrine these. There is also a CT scan of the neck from April 16, 2017 that shows just the apices of the lungs and infiltrate seen on the current CAT scan were not present on that CT scan in April. A chest x-ray on July 07 shows some faintly increased interstitial markings that are similar to late May 2017, but perhaps slightly more prominent. Images reviewed by me. ASSESSMENT: Interstitial lung disease. The patient has had stable interstitial lung disease for yea rs, but now presents with a fairly acute onset of symptoms of productive cough and increased dyspnea with hypoxemia. This has been primarily present for 5 days, but may have progressed over the last 3 weeks. This is accompanied by patchy ground-glass infiltrates throughout the lungs, but predominatin g in the upper lobes that are definitely new from 2014 and probably new from early April 2017 (at least in the apices). Possibilities include an acute atypical infectious pneumonitis such as a viral or atypical bacteria, an opportunistic infection, or a return/relapse of her interstitial lung disease. Strongly consideri ng an opportunistic infection, given her immunosuppression, but upon finding out that she has markedl y reduced her of mycophenolate down to just 500-1000 mg a day and was not taking any concomitant pred nisone, I think an opportunistic infection is quite unlikely. I think the reduction in mycophenolate does make it more likely that this is a recurrence/relapse of interstitial lung disease. Nonetheles s, given the subacute course, I think an acute infectious cause is also possible. She has been treated with high-dose steroids as well as resuming her mycophenolate at 500 mg twice da ayaka. She has not had any symptomatic improvement yet. I discussed treatment options, including gett ing cultures/serologies, proceeding with bronchoscopy, and increasing venous suppression. RECOMMENDATIONS: 1. Get sputum culture for bacteria and AFB as well as a respiratory viral panel and Legionella urina ry antigen and mycoplasma serology and PCR. 2. Empirically treated with Levaquin for 5 days. 3. Hold mycophenolate while on Levaquin, then resume at 1000 mg twice daily (the dose she was on enrico elbert a year ago). 4. I will plan on holding off on bronchoscopy right now to see how she responds over the next severa l days. I anticipate that she will be able to go home fairly soon and can have outpatient followup. 5. Patient has an appointment with Dr. piedra in a little over a week. I will try to reach out to hi m to see if he would feel strongly about proceeding with bronchoscopy before his visit with her. Copy requested to: Dr. John Piedra, [facility] /[id number]/MODL
[2017-07-10] MEDS: predniSONE 20 MG TAB PO SCH (17:35)
[2017-07-10] MEDS: ACETAMINOPHEN 325 MG TAB PO PRN (18:32)
[2017-07-10] MEDS ORDERED: POTASSIUM CL 10 MEQ TAB PO ONE (21:24)
[2017-07-10] MEDS: FAMOTIDINE 20 MG TAB PO SCH (21:37)
[2017-07-10] MEDS: traZODone 50 MG TAB PO SCH (22:14)
[2017-07-11] MEDS: ALPRAZolam 1 MG TAB PO PRN ×2 (01:20→23:33)
[2017-07-11] MEDS: IPRATROPIUM/ALBUTEROL 3 ML DEYVIAL IH SCH ×4 (06:11→20:44)
[2017-07-11] MEDS ORDERED: POTASSIUM CL 10 MEQ TAB PO ONE (07:47)
[2017-07-11] MEDS: CHOLECALCIFEROL VIT D3 1,000 UNITS TAB PO SCH (08:42)
[2017-07-11] MEDS: CALCIUM CARBONATE 500 MG TAB PO SCH (08:43)
[2017-07-11] MEDS: predniSONE 20 MG TAB PO SCH ×2 (08:48→18:08)
[2017-07-11] MEDS: PANTOPRAZOLE SODIUM 40 MG TAB PO SCH (08:48)
[2017-07-11] MEDS: MULTIVITAMINS 1 EACH TAB PO SCH (08:49)
[2017-07-11] MEDS: MYCOPHENOLATE MOFETIL 250 MG CAP PO SCH (08:49)
[2017-07-11] MEDS: LORazepam 0.5 MG TAB PO SCH ×2 (08:49→21:03)
[2017-07-11] MEDS: lamoTRIgine 100 MG TAB PO SCH (08:49)
[2017-07-11] MEDS: OMEGA-3 FATTY ACIDS 1,000 MG CAP PO SCH (08:49)
[2017-07-11] MEDS: ASPIRIN EC 81 MG TAB PO SCH (08:49)
[2017-07-11] MEDS ORDERED: METOPROLOL TARTRATE 5 MG/5 ML INJ IVP PRN (11:34)
[2017-07-11] MEDS: LISINOPRIL 10 MG TAB PO SCH (11:56)
[2017-07-11] MEDS: buPROPion XL 150 MG TAB PO SCH (11:56)
[2017-07-11] MEDS: ENOXAPARIN 40 MG/0.4 ML SYR SC SCH (11:57)
--- NOTE | 2017-07-11 14:55 | PDINTPN ---
Java Sql Developer Progress Note Assessment/Plan: Assessment: ILD: Chronic. now with new patchy alveolar infiltrates. ? Acute infectious pneumonia vs. 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 Negative evauation for infection makes that less likely. Nonetheless, with empirically treat with Levaquin. Plan: Continue Prednisone 40 BID, reduce to 40 mg/day on discharge. Levaquin 750 daily for 5 days. Continue mycophenolate at 1000 mg/day, increase to 1000 mg BID once Levaquin completed. Follow-up with Dr. John Piedra at [facility] ILD clinic in 10 days. 07/11/17 14:56 07/11/17 15:10 Subjective: C/O cough, now non-productive. Dyspneic with activity off oxygen. Objective: Vital Signs Temp Pulse Resp BP Pulse Ox 36.7 C 95 18 159/82 H 93 07/11/17 12:52 07/11/17 12:52 07/11/17 12:52 07/11/17 12:52 07/11/17 12:52 Microbiology 07/10/17 17:45 - Final Sputum, Expectorated 07/10/17 15:55 Respiratory Panel (PCR) - Final Nasal, Sinus - Swab No Organism Detected Laboratory Results 07/09/17 04:40 07/11/17 03:59 07/10/17 07/11/17 07/12/17 05:59 05:59 05:59 Intake Total 543 985 4798 Output Total 600 900 Balance 590 -300 600 Microbiology 07/10/17 17:45 Sputum, Expectorated - Final 07/10/17 15:55 Nasal, Sinus - Swab Respiratory Panel (PCR) - Final No Organism Detected 07/10/17 17:45 Sputum, Expectorated Sputum Culture - Preliminary Physical Exam - Physical Exam General Appearance: alert, no apparent distress EENT: normal ENT inspection Neck: normal inspection Respiratory: crackles (bases) Cardiac/Chest: regular rate, rhythm, No edema Abdomen: normal bowel sounds, non-tender Skin: normal color, warm/dry Extremities: normal inspection Neuro/Psych: alert, normal mood/affect, oriented x 3 ICD10 Worksheet Patient Problems: Problems Problem Status Onset Interstitial lung disease Acute Shortness of breath Acute Anxiety Active Back pain Acute ESBL (extended spectrum beta-lactamase) producing bacteria infection Acute ~ Strain of right hip Acute
--- NOTE | 2017-07-11 15:15 | HOSPPROG ---
Hospitalist Progress Note Assessment/Plan: 77 yo F w ILD p/w acute on chronic hypoxemic resp failure # Acute Hypoxic Respiratory Failure- presumed 2/2 progressive ILD - WBC 6.2 CT chest (personally reviewed and interpreted) chronic interstitial disease with finding c/w active alveolitis - bronchiectasis oxygen saturations 93% on 2L - cont PO prednisone BID - cont inhaled beta agonists - pulmonary collected additional sputum studies - will increase mycophenolate dosing per their recs - starting levofloxacin x 5 days today # ILD- CT as above - concern for progressing disease # anxiety: continue meds # proph: lmwh # dispo: inpt # code: dnr I have discussed the case with Dr. Wilkinson we will start Levofloxacin today Subjective: breathing more comfortable Objective: Vital Signs Temp Pulse Resp BP Pulse Ox 36.7 C 95 18 159/82 H 78 L 07/11/17 12:52 07/11/17 12:52 07/11/17 12:52 07/11/17 12:52 07/11/17 14:51 Microbiology 07/10/17 17:45 - Final Sputum, Expectorated 07/10/17 15:55 Respiratory Panel (PCR) - Final Nasal, Sinus - Swab No Organism Detected Laboratory Results 07/09/17 04:40 07/11/17 03:59 07/10/17 07/11/17 07/12/17 05:59 05:59 05:59 Intake Total 320 938 2121 Output Total 600 900 Balance 590 -300 600 - Physical Exam Constitutional: no apparent distress Eyes: anicteric sclera Ears, Nose, Mouth, Throat: moist mucous membranes Cardiovascular: regular rate and rhythym Respiratory: inspiratory crackles Gastrointestinal: normoactive bowel sounds Genitourinary: no bladder fullness Skin: warm Musculoskeletal: No asymmetric calves Neurologic: AAOx3 Psychiatric: interacting appropriately Lymph, Heme, Immunologic: no cervical LAD ICD10 Worksheet Patient Problems: Problems Problem Status Onset Interstitial lung disease Acute Shortness of breath Acute Anxiety Active Back pain Acute ESBL (extended spectrum beta-lactamase) producing bacteria infection Acute ~ Strain of right hip Acute
[2017-07-11] MEDS: PARoxetine HCL 20 MG TAB PO SCH (16:07)
--- NOTE | 2017-07-11 18:05 | ASMTCMCOM ---
CM Note CM Note Notes: Reviewed chart regarding discharge plan, pt's progress. Spoke w/ GRETCHEN Lerma. Per MD notes, there is concern for worsening ILD; pulmonology consulted. Per Maria Guadalupe, pt will still likely discharge home w/ [facility] (28/12 services) when medically stable. Per CM report, pt will need a larger oxygen tank for home - alerted Maria Guadalupe and RT. CM will cont to follow for any potential needs. Current Discharge Plan: Home w/ [facility] (28/12 services) Date Signed: 07/11/2017 06:05 PM Electronically Signed By:Jeri Regalado RN
[2017-07-11] MEDS: FAMOTIDINE 20 MG TAB PO SCH (21:03)
[2017-07-11] MEDS: traZODone 50 MG TAB PO SCH (21:03)
[2017-07-12] MEDS: IPRATROPIUM/ALBUTEROL 3 ML DEYVIAL IH SCH ×2 (05:16→09:54)
[2017-07-12 05:17] VITALS: RESP 18
[2017-07-12 08:32] VITALS: BP 155/102; TEMP 98
[2017-07-12] MEDS ORDERED: MYCOPHENOLATE MOFETIL 250 MG CAP PO SCH (09:00)
[2017-07-12 10:01] VITALS: PULSE 90; O2SAT 92
--- NOTE | 2017-07-12 10:50 | ASMTLACE ---
LACE Length of stay for Answers: 4-6 days current admission Acuity / Level of Answers: Yes Care: Did the patient have an inpatient admission? Comorbidities - select Answers: Chronic pulmonary disease all that apply # of Emergency department Answers: 1-2 visits in the last 6 months Social determinants Answers: Mental health diagnosis (anxiety, depression, pers onality disorders, etc.) Score: 13 Date Signed: 07/12/2017 10:49 AM Electronically Signed By:Carmencita Torres RN
[2017-07-12] MEDS: buPROPion XL 150 MG TAB PO SCH (11:26)
[2017-07-12] MEDS: LISINOPRIL 10 MG TAB PO SCH (11:26)
[2017-07-12] MEDS: CALCIUM CARBONATE 500 MG TAB PO SCH (11:31)
[2017-07-12] MEDS: ASPIRIN EC 81 MG TAB PO SCH (11:32)
[2017-07-12] MEDS: OMEGA-3 FATTY ACIDS 1,000 MG CAP PO SCH (11:32)
[2017-07-12] MEDS: predniSONE 20 MG TAB PO SCH (11:32)
[2017-07-12] MEDS: CHOLECALCIFEROL VIT D3 1,000 UNITS TAB PO SCH (11:33)
[2017-07-12] MEDS: ENOXAPARIN 40 MG/0.4 ML SYR SC SCH (11:33)
[2017-07-12] MEDS: MULTIVITAMINS 1 EACH TAB PO SCH (11:33)
[2017-07-12] MEDS: lamoTRIgine 100 MG TAB PO SCH (11:33)
[2017-07-12] MEDS: PANTOPRAZOLE SODIUM 40 MG TAB PO SCH (11:33)
[2017-07-12] MEDS: LORazepam 0.5 MG TAB PO SCH (12:45)
--- NOTE | 2017-07-12 14:34 | PDIAF ---
- Diagnosis Diagnosis: ILD Code Status: Do Not Resuscitate - Medication Management Discharge Medications: Medications to Continue on Transfer Cholecalciferol Vit D3 [Vitamin D3 (*)] 1,000 units PO DAILY 04/12/12 [Last Taken 07/07/17 09:00] Lisinopril [Zestril 10 mg (*)] 10 mg PO DAILY@12 04/12/12 [Last Taken 07/07/17 09:00] Multivitamins [Multivitamin (*)] 1 each PO DAILY 04/12/12 [Last Taken 07/07/17 09:00] ALPRAZolam [Xanax 1 MG (*)] 1 mg PO Q12H PRN 12/22/16 [Last Taken 07/07/17 21:00 ] PARoxetine HCL [Paxil 20mg (*)] 20 mg PO DAILY@15 12/22/16 [Last Taken 07/07/17 15:00] buPROPion XL [Wellbutrin 150mg XL] 150 mg PO DAILY@12 12/22/16 [Last Taken 07/07 09:00] lamoTRIgine [LamICTAL 100 MG (*)] 100 mg PO DAILY 02/19/17 [Last Taken 07/07/17 09:00] Acetaminophen [Tylenol ES 500 mg (*)] 2,000 mg PO DAILY PRN 07/08/17 [Last Taken 07/07/17 15:00] Aspirin EC [Aspirin EC 81 mg (*)] 81 mg PO DAILY 07/08/17 [Last Taken 07/07/17 09:00] Calcium Carbonate [Oyster Shell Calcium 500 mg (*)] 1,250 mg PO DAILY 07/08/17 [ Last Taken 07/07/17 09:00] Dexlansoprazole [Dexilant] 60 mg PO DAILY 07/08/17 [Last Taken 07/07/17 09:00] LORazepam [Ativan (*)] 0.5 mg PO BID 07/08/17 [Last Taken 07/07/17 21:00] Glady-3 Fatty Acids [Fish Oil 1000 mg (*)] 1,000 mg PO DAILY 07/08/17 [Last Taken 07/07/17 09:00] Omeprazole 40 mg PO DAILY 07/08/17 [Last Taken 07/07/17 09:00] Ranitidine HCl 300 mg PO HS 07/08/17 [Last Taken 07/07/17 21:00] traMADol [Ultram 50 mg (*)] 50 mg PO Q6 PRN 07/08/17 [Last Taken Unknown] traZODone [traZODONE 50MG (*)] 50 mg PO HS 07/08/17 [Last Taken 07/07/17 21:00] Mycophenolate Mofetil [Cellcept] 1,000 mg PO DAILY cap 07/12/17 [Last Taken Unknown] levOFLOXACIN [levAQUIN (*)] 750 mg PO DAILY AT 10AM #3 tab 07/12/17 [Last Taken Unknown] predniSONE 40 mg PO BIDMEAL #100 tablet 07/12/17 [Last Taken Unknown] Discharge Medications: Refer to the Discharge Home Medication list for PRN reason. - Orders Services needed: Home Care, Registered Nurse, Physical Therapy, Occupational Therapy Home Care Face to Face: I certify that this patient was under my care and that I had the required [id number] encounter meeting the encounter requirements on the discharge day. My findings support the fact that the patient is homebound as defined in Home Care Face to Face Continued: CMS Chapter 7 Medicare Benefits Manual 30.1.1 , The condition of the patient is such that there exists a normal inability to leave home and consequently, leaving home would require a considerable and taxing effort. Diet Recommendation: no restrictions on diet Diet Texture: Regular Texture Diet - Follow Up Care Current Providers and Referrals: Sana Hendricks MD [[facility] Primary Care Provider] - follow up in 1 week (Please make an appointment to follow up in the next 1-2 weeks.) Patient,NotPresent [Unknown] - As per Instructions
--- NOTE | 2017-07-12 14:41 | PDIAF ---
- Diagnosis Diagnosis: ILD Code Status: Do Not Resuscitate - Medication Management Discharge Medications: Medications to Continue on Transfer Cholecalciferol Vit D3 [Vitamin D3 (*)] 1,000 units PO DAILY 04/12/12 [Last Taken 07/07/17 09:00] Lisinopril [Zestril 10 mg (*)] 10 mg PO DAILY@12 04/12/12 [Last Taken 07/07/17 09:00] Multivitamins [Multivitamin (*)] 1 each PO DAILY 04/12/12 [Last Taken 07/07/17 09:00] ALPRAZolam [Xanax 1 MG (*)] 1 mg PO Q12H PRN 12/22/16 [Last Taken 07/07/17 21:00 ] PARoxetine HCL [Paxil 20mg (*)] 20 mg PO DAILY@15 12/22/16 [Last Taken 07/07/17 15:00] buPROPion XL [Wellbutrin 150mg XL] 150 mg PO DAILY@12 12/22/16 [Last Taken 07/07 09:00] lamoTRIgine [LamICTAL 100 MG (*)] 100 mg PO DAILY 02/19/17 [Last Taken 07/07/17 09:00] Acetaminophen [Tylenol ES 500 mg (*)] 2,000 mg PO DAILY PRN 07/08/17 [Last Taken 07/07/17 15:00] Aspirin EC [Aspirin EC 81 mg (*)] 81 mg PO DAILY 07/08/17 [Last Taken 07/07/17 09:00] Calcium Carbonate [Oyster Shell Calcium 500 mg (*)] 1,250 mg PO DAILY 07/08/17 [ Last Taken 07/07/17 09:00] Dexlansoprazole [Dexilant] 60 mg PO DAILY 07/08/17 [Last Taken 07/07/17 09:00] LORazepam [Ativan (*)] 0.5 mg PO BID 07/08/17 [Last Taken 07/07/17 21:00] [place]-3 Fatty Acids [Fish Oil 1000 mg (*)] 1,000 mg PO DAILY 07/08/17 [Last Taken 07/07/17 09:00] Omeprazole 40 mg PO DAILY 07/08/17 [Last Taken 07/07/17 09:00] Ranitidine HCl 300 mg PO HS 07/08/17 [Last Taken 07/07/17 21:00] traMADol [Ultram 50 mg (*)] 50 mg PO Q6 PRN 07/08/17 [Last Taken Unknown] traZODone [traZODONE 50MG (*)] 50 mg PO HS 07/08/17 [Last Taken 07/07/17 21:00] Mycophenolate Mofetil [Cellcept] 1,000 mg PO DAILY cap 07/12/17 [Last Taken Unknown] levOFLOXACIN [levAQUIN (*)] 750 mg PO DAILY AT 10AM #3 tab 07/12/17 [Last Taken Unknown] predniSONE 40 mg PO BIDMEAL #100 tablet 07/12/17 [Last Taken Unknown] Discharge Medications: Refer to the Discharge Home Medication list for PRN reason. - Orders Services needed: Home Care, Master Laser Beam Machine Operator, Physical Therapy, Occupational Therapy, Speech Language Pathologist Home Care Face to Face: I certify that this patient was under my care and that I had the required [id number] encounter meeting the encounter requirements on the discharge day. My findings support the fact that the patient is homebound as defined in Home Care Face to Face Continued: CMS Chapter 7 Medicare Benefits Manual 30.1.1 , The condition of the patient is such that there exists a normal inability to leave home and consequently, leaving home would require a considerable and taxing effort. Diet Recommendation: no restrictions on diet Diet Texture: Regular Texture Diet - Follow Up Care Current Providers and Referrals: Sana Hendricks MD [[facility] [place] Primary Care Provider] - follow up in 1 week (Please make an appointment to follow up in the next 1-2 weeks.) Patient,NotPresent [Unknown] - As per Instructions
--- NOTE | 2017-07-12 15:18 | GDS ---
[f rep st] DISCHARGE SUMMARY DISCHARGE DIAGNOSES: 1. Ayxtg-vx-[id number] hypoxic respiratory failure secondary to interstitial lung disease. 2. Acute progression of interstitial lung disease. 3. Anxiety. 4. Hypertension. 5. Hyperlipidemia. 6. Osteoporosis. 7. Depression. 8. Peripheral neuropathy. HISTORY OF PRESENT ILLNESS: A 77-year-old female with a history of ILD, quite stable, followed at [facility], who presents with acute hypoxia and shortness of breath. For details of patient's presentation, please see the history and physical dated 07/08/2017. CONSULTATIVE SERVICES: Pulmonary, Dr. Wilkinson. PROCEDURES: On 07/08/2017, patient had a CTA of the chest, ruled out pulmonary embolism, showed prog ression of her interstitial lung disease. HOSPITAL COURSE BY ISSUE: Wxedt-ad-hybuedh hypoxia. The patient was seen by Pulmonary Medicine, [facility] on IV steroids initially. Sputum studies were sent for numerous pathogens and empiric levoflo xacin therapy, a 5-day course, was initiated. The patient was transitioned to prednisone 40 mg b.i.d . and an increased dose of mycophenolate to 1 g b.i.d. The patient will be followed in the outpatien t setting by Dr. Piedra, her phys assistant at [facility], where she will be likely tapered on her steroids and undergo possible bronchoscopy or other diagnostic workup. The patient will complete a 5-day course of levofloxacin at home. Three tablets were provided for the completion of this course after discharge. PENDING STUDIES AT TIME OF DICTATION: Include sputum cultures for Mycobacterium, as well as bacteria l pathogens, which are preliminarily no growth to date. FOLLOWUP APPOINTMENTS: Include: 1. With Dr. Sana Hendricks in the next 1-2 weeks for post-disposition followup. 2. With Dr. Piedra in 10 days for her 1st pulmonary followup post-hospitalization. MEDICATIONS AT TIME OF DISPOSITION: Please reference medication reconciliation printed on 07/12/2017 . BILLING: I spent greater than 30 minutes in the planning and coordination of this discharge. /[id number]/MODL
--- NOTE | 2017-07-12 17:26 | ASMTCMCOM ---
CM Note CM Note Notes: Received call from John at [facility] after pt dc'd saying that they were scheduled to open pt prior to her admit to hospital (ordered through pt's PCP). Notified pt who confirmed that she would still like to start up w/these services. [facility] needed new orders. Discussed w/Dr Chandra who put orders in for HHC as requested. Orders/info sent to [facility] through [employer] and conf rec'd from Sarah at [facility]. Date Signed: 07/12/2017 05:26 PM Electronically Signed By:Carmencita Torres RN
--- NOTE | 2017-07-12 17:27 | ASDISCHSUM ---
Discharge Information Plan Status:Home with Home Health Medically Cleared to Leave: Discharge Date:07/12/2017 01:50 PM CM D/C Disposition:Home Health Service ADT D/C Disposition:HHSNOTBCH Projected Discharge Date:07/12/2017 11:00 AM Transportation at D/C: Discharge Delay Reason: Follow-Up Date:07/12/2017 11:00 AM Discharge Slot: Final Diagnosis: Placement Information Referral Type:*Home Health Care Services Referral ID:[id number] Provider Name:[facility] [place] Address 1:[address] [address] Address 2: City:[place] Selection Factors: State:[place] Patient Contact Information Contact Name:EZ Relationship:Daughter Address:[address] City:[facility] Phone: State/Zip Code:[place] [address] Email: Financial Information Financial Class: Primary Plan Desc:MEDICARE INPATIENT Primary Plan Number:[id number] Secondary Plan Desc: OUT OF [facility] Secondary Plan Number:[id number] Assessment Information [facility] CM Progress Note CM Note CM Note Notes: Pt admitted with interstitial lung disease and resp. failure. Pt has [facility] for 28/12 which includes an RN. Pt has no other DC needs. Date Signed: 07/09/2017 04:16 PM Electronically Signed By:Niya Waldrop LCSW CALE GLADIS Length of stay for Answers: 4-6 days current admission Acuity / Level of Answers: Yes Care: Did the patient have an inpatient admission? Comorbidities - select Answers: Chronic pulmonary disease all that apply # of Emergency department Answers: 1-2 visits in the last 6 months Social determinants Answers: Mental health diagnosis (anxiety, depression, pers onality disorders, etc.) Score: 13 Date Signed: 07/12/2017 10:49 AM Electronically Signed By:Carmencita Torres RN [facility] CM Progress Note CM Note CM Note Notes: Reviewed chart regarding discharge plan, pt's progress. Spoke w/ GRETCHEN Lerma. Per MD notes, there is concern for worsening ILD; pulmonology consulted. Per Maria Guadalupe, pt will still likely discharge home w/ [facility] (28/12 services) when medically stable. Per CM report, pt will need a larger oxygen tank for home - alerted Maria Guadalupe and RT. CM will cont to follow for any potential needs. Current Discharge Plan: Home w/ [facility] (28/12 services) Date Signed: 07/11/2017 06:05 PM Electronically Signed By:Jeri Regalado RN Case Management Discharge Plan Note Case Management Discharge Discharge Order Complete? Answers: Yes Patient to Obtain Answers: Independently Medications Transportation Arranged Answers: Other Notes: [facility] Discharge Comments Notes: Reviewed chart and discussed w/RN. Pt will dc home w/24 hour care through [facility]. Met w/pt to discuss dc poc. No other dc needs at this time. Date Signed: 07/12/2017 10:52 AM Electronically Signed By:Carmencita Torres RN [facility] CM Progress Note CM Note CM Note Notes: Received call from John at [facility] after pt dc'd saying that they were scheduled to open pt prior to her admit to hospital (ordered through pt's PCP). Notified pt who confirmed that she would still like to start up w/these services. [facility] needed new orders. Discussed w/Dr Chandra who put orders in for [facility] as requested. Orders/info sent to [facility] through [employer] and conf rec'd from Sarah at [facility]. Date Signed: 07/12/2017 05:26 PM Electronically Signed By:Carmencita Torres RN Intervention Information Intervention Type:*IM-Signed Date of Service:07/12/2017 11:01 AM Patient Type:Inpatient Staff Member:Heidy Kenney Hours: Discipline: Severity: Comment:
== END 2017-07-12 13:50 | disposition home health service (06) | DRG 196 ==
LOC: EDUNIT# → OBSVTOIN 14:49 → F1N 15:53
PROVIDERS: ADMIT Family Medicine; ATTEND Family Medicine
DX: J84.9 Interstitial pulmonary disease, unspecified (principal); J96.21 Acute and chronic respiratory failure with hypoxia; F41.9 Anxiety disorder, unspecified; I10 Essential (primary) hypertension; E78.5 Hyperlipidemia, unspecified; M81.0 Age-related osteoporosis without current pathological fracture; F32.9 Major depressive disorder, single episode, unspecified; G62.9 Polyneuropathy, unspecified; Z87.891 Personal history of nicotine dependence
CPT/HCPCS: 87449-90; 96374; 97116-GP; 97161-GP; 97166-GO; 97530-GO; 97530-GP; 97535-GO; G8978-GP-CI; G8979-GP-CI; G8987-GO-CJ; G8988-GO-CI; J1650; J2930; J7512; Q9967

== ENCOUNTER 2017-07-24 18:53 | Inpatient (IN) | payer OTHER, BC ==
--- NOTE | 2017-07-24 18:47 | EDPHY ---
HPI/HX/ROS/PE/MDM Narrative: CHIEF COMPLAINT: Difficulty breathing HPI: This patient is a 77 year old female with history of interstitial lung disease arriving via EMS from home complaining of difficulty breathing. She is generally on home oxygen at 3L, but today she noted increased work of breathing and saw her oxygen saturation had dropped to the 50s. On EMS arrival, the patient's SpO2 was around 80%. EMS crews administered continuous DuoNeb treatment and Solu-Medrol en route. The patient is followed by Dr. Piedra, personnel research psychologist at [facility] for her ILD and takes mycophenolate and prednisone for symptom relief. Her primary care providers recommended 24/7 home care and ambulation with a walker for this patient as she has had frequent falls recently due to leg weakness. She was recently admitted 07/08/17 for similar symptoms, zylgu-uf-hoeqjif hypoxic respiratory failure secondary to ILD. Five days ago, the patient began feeling poorly again. Two days ago, she became acutely worse with oxygen saturation dropping to 50 or 60 with minor exertion. She endorses a dry cough. Today, her primary complaint is difficulty breathing and hypoxemia. She denies fever, chest pain, nausea, calf pain or swelling, or other associated symptoms. REVIEW OF SYSTEMS: Aside from elements discussed in the HPI, a comprehensive 10-point review of systems was reviewed and is negative. PMH: Interstitial lung disease. Hypertension. Hyperlipidemia. Osteoporosis. Depression and anxiety w/ chronic benzodiazepine dependency. Peripheral neuropathy SOCIAL HISTORY: Caregiver at bedside. Lives in [place]. Retired. PHYSICAL EXAM: General:Patient is alert, in no acute distress. Head: Ecchymosis at corner of right eye. ENT:Eyes are normal to inspection. ENT inspection normal. Neck: Normal inspection. Full range of motion. Respiratory: Moderate tachypnea on nonrebreather. Cardiovascular: Regular tachycardia. Strong peripheral pulses. Normal cap refill. Skin: Normal color. No rash. Warm and dry. Extremities: Normal appearance. Full range of motion. Neuro: Oriented x3. Normal motor function. Normal sensory function. ED Course: 18:53 Met EMS at bedside. EKG was ordered and interpreted by myself. Please see [facility] system for official reading. Sinus tachycardia rate 104. Past medical records reviewed including admission 07/08/17 for welcs-wk-asqmphh hypoxic respiratory failure secondary to ILD. CTA chest during her prior admission showed progressing underlying interstitial lung disease, no P.E., no pleural effusions. D-Dimer at that time was elevated, but negative CTA. Patient is tachypneic on oxygen by nonrebreather. I discussed admission with the patient, and she is agreeable to this. Plan for chest x-ray, labs including CBC, chemistries. X-ray shows worsening ILD. 19:[address] David, hospitalist. She accepts admission for ILD, hypoxemia. 19:45 Patient has 93% O2 saturation by OxyMask. She is currently speaking on the phone and well-appearing. - Data Points Imaging Results: Imaging Impressions Chest X-Ray 07/24/17 19:01 Impression: Worsening pulmonary edema versus pneumonia. Imaging: I viewed and interpreted images myself Laboratory Results: Laboratory Results 07/24/17 18:54 07/24/17 18:54 07/24/17 07/24/17 07/24/17 18:54 18:54 18:54 WBC 7.88 10^3/uL 10^3/uL (3.80-9.50) RBC 4.38 10^6/uL 10^6/uL (4.18-5.33) Hgb 12.8 g/dL g/dL (12.6-16.3) Hct 39.8 % % (38.0-47.0) MCV 90.9 fL fL (81.5-99.8) MCH 29.2 pg pg (27.9-34.1) MCHC 32.2 g/dL L g/dL (32.4-36.7) RDW 14.6 % % (11.5-15.2) Plt Count 291 10^3/uL 10^3/uL (150-400) MPV 9.1 fL fL (8.7-11.7) Neut % (Auto) 90.3 % H % (39.3-74.2) Lymph % (Auto) 4.7 % L % (15.0-45.0) [place] % (Auto) 3.6 % L % (4.5-13.0) Eos % (Auto) 0.1 % L % (0.6-7.6) Baso % (Auto) 0.3 % % (0.3-1.7) Nucleat RBC Rel Count 0.0 % % (0.0-0.2) Absolute Neuts (auto) 7.12 10^3/uL H 10^3/uL (1.70-6.50) Absolute Lymphs (auto) 0.37 10^3/uL L 10^3/uL (1.00-3.00) Absolute Monos (auto) 0.28 10^3/uL L 10^3/uL (0.30-0.80) Absolute Eos (auto) 0.01 10^3/uL L 10^3/uL (0.03-0.40) Absolute Basos (auto) 0.02 10^3/uL 10^3/uL (0.02-0.10) Absolute Nucleated RBC 0.00 10^3/uL 10^3/uL (0-0.01) Immature Gran % 1.0 % % (0.0-1.1) Immature Gran # 0.08 10^3/uL 10^3/uL (0.00-0.10) Sodium 135 mEq/L mEq/L (135-145) Potassium 4.2 mEq/L mEq/L (3.5-5.2) Chloride 105 mEq/L mEq/L (97-110) Carbon Dioxide 19 mEq/l L mEq/l (22-31) Anion Gap 11 mEq/L mEq/L (8-16) BUN 16 mg/dL mg/dL (7-23) Creatinine 0.8 mg/dL mg/dL (0.6-1.0) Estimated GFR > 60 Glucose 152 mg/dL H mg/dL (70-100) Calcium 9.0 mg/dL mg/dL (8.5-10.4) Troponin I < 0.012 ng/mL ng/mL (0.000-0.034) NT-Pro-B Natriuret Pep Pending General Initial Vital Signs: Initial Vital Signs Temperature (C) 36.9 C 07/24/17 19:05 Heart Rate 112 H 07/24/17 19:05 Respiratory Rate 24 H 18 19:05 Blood Pressure 178/89 H 07/24/17 19:05 O2 Sat (%) 50 L 07/24/17 19:05 O2 Delivery Mode Room Air Allergies/Adverse Reactions: morphine Allergy (Mild, Verified 07/24/17 19:08) Vomiting Home Medications: Medication Instructions Recorded Cholecalciferol Vit D3 [Vitamin D3 1,000 units PO DAILY 04/12/12 (*)] Lisinopril [Zestril 10 mg (*)] 10 mg PO DAILY@12 04/12/12 Multivitamins [Multivitamin (*)] 1 each PO DAILY 04/12/12 ALPRAZolam [Xanax 1 MG (*)] 1 mg PO Q12H PRN 12/22/16 PARoxetine HCL [Paxil 20mg (*)] 20 mg PO DAILY@15 12/22/16 buPROPion XL [Wellbutrin 150mg XL] 150 mg PO DAILY@12/22/16 lamoTRIgine [LamICTAL 100 MG (*)] 100 mg PO DAILY 02/19/17 Aspirin EC [Aspirin EC 81 mg (*)] 81 mg PO DAILY 07/08/17 Calcium Carbonate [Oyster Shell 1,250 mg PO DAILY 07/08/17 Calcium 500 mg (*)] Jean-3 Fatty Acids [Fish Oil 1000 1,000 mg PO DAILY 07/08/17 mg (*)] traZODone [traZODONE 50MG (*)] 50 mg PO HS 07/08/17 Mycophenolate Mofetil [Cellcept] 1,000 mg PO BID 07/24/17 predniSONE 20 mg PO BIDMEAL 07/24/17 Departure - Departure Disposition: [facility] Inpatient Acute Clinical Impression: Interstitial lung disease, Hypoxemia Condition: Fair Referrals: Patient,NotPresent [Primary Care Provider] - As per Instructions Report Scribed for: Sarmad Weaver Report Scribed by: Brittany Fontenot Date of Report: 07/24/17 Time of Report: 18:47 Physician Review and Approval Statement: Portions of this note were transcribed by an ED scribe. I personally performed the history, physical exam, and medical decision making; and confirm the accuracy of the information in the transcribed note.
--- NOTE | 2017-07-24 19:03 | CPEKG ---
Heart Rate: 104 RR Interval: 577 P-R Interval: 204 QRSD Interval: 88 QT Interval: 320 QTC Interval: 421 P [place]: 10 QRS [place]: -21 T Wave [place]: 60 EKG Severity - ABNORMAL ECG - EKG Impression: SINUS TACHYCARDIA EKG Impression: PROBABLE LEFT ATRIAL ABNORMALITY EKG Impression: LEFT VENTRICULAR HYPERTROPHY Electronically Signed By: Marlo Yancey 26-Jul-2017 12:31:01
[2017-07-24 19:07] LABS: PLATELET COUNT 291 10^3/uL (150-400)
--- NOTE | 2017-07-24 20:48 | PDGENHP ---
History and Physical History and Physical: Chief complaint: Shortness of breath History of present illness: The patient is a 77-year-old female with a history of interstitial lung disease and nocturnal hypoxemia who returned to the hospital for progressively worsening dyspnea, requiring a non-rebreather mask for oxygenation. About 1 month ago, her oxygen demand increased. She was admitted to [facility] about 2 weeks ago and was treated empirically for pneumonia with Levaquin. She was seen by her local Community Action Worker, Dr. Wilkinson. Ultimately her condition was thought to be progressively worsening ILD because she had recently been cut back on her dose of CellCept. She has followed up with her other Community Action Worker at [facility], Dr. Piedra, and is currently undergoing outpatient workup. She has another test and appointment scheduled on WednesdayJul 27. She says he has also cut her prednisone dose back by half recently. She has not had a bronchoscopy. Currently she complains of dyspnea on exertion, generalized weakness, and fatigue. She has desaturated to the 50s a few times at home and even when she has gone to her PCP office. She is on an Oxymask at this time, breathing adequately. She has no other associated symptoms. She denies cough or increased sputum production. Denies fever/chills. Past medical history: Interstitial lung disease, Hypertension, hyperlipidemia, osteoporosis and depression/anxiety, peripheral neuropathy, serotonin syndrome. Past surgical history: Lumbar KATI, lumbar disc surgery, pain stimulator insertion and removal, , hernia repair. Medications: Vitamin D3, lisinopril, multivitamin, Xanax, paroxetine, bupropion , CellCept, lamotrigine, acetaminophen p.r.n., baby aspirin, calcium carbonate, Dexilant, Ativan, fish oil. See med rec form for dosages. Allergies: Morphine. Social history: Former smoker. Occasionally drinks alcohol. No drug use. Lives alone, but has 24hr caregivers. Family history: Mother had a TIA. No Hx lung disease. Review of systems: 10 point review of systems was conducted and is negative except per HPI Physical exam: Vitals: Reviewed General: The patient is a female who is alert and in no acute distress. HEENT: normocephalic, extraocular movements intact, conjunctivae clear, no lesions on face. Mucous membranes moist. Breathing w/ Oxymask. Neck: trachea midline, no visible masses, no external lesions. CV: RRR, no MRG. Resp: mildly labored breathing. CTAB +bilateral crackles. No wheezing or rhonchi. Abd: soft and nondistended. Musculoskeletal: Normal gait. Neuro: cranial nerves II XII grossly intact. Intact gross motor and sensory function. Psych: appropriate mood/affect. Skin: No pallor. Heme/lymph: No peripheral edema. Labs: WBC 7.88, HGB 12.8, platelets 281. Sodium 135, potassium 0.2, chloride 105, CO2 19, BUN 16, creatinine 0.8, glucose 152. Calcium 9. Troponin I less than 0.012. ProBNP 135. Other Data: Chest a-qxy-elqkhdjch patchy infiltrates. Similar to prior CXR. Impression and plan: Acute on chronic hypoxemic resp failure, recurrent ILD HTN Depression and anxiety Osteoporosis Hyperlipidemia -Continue O2 via Oxymask. -SVNs, continue home steroid dose. -Checked procalcitonin to r/o bacterial infection - was negative. -Suspect hypoxemia is from progressing ILD. Symptoms sound similar to her recent hospital visit 2 weeks ago. -Recommend to consult Pulm for additional recs in the AM. -Continue home meds. -ISU. -PT/OT. -VTE ppx - Lovenox. -Code status - DNR. Dispo: observation, med surg.
[2017-07-24] MEDS ORDERED: ONDANSETRON DISINTEGRATING 4 MG TAB PO PRN (20:59)
[2017-07-24] MEDS ORDERED: ONDANSETRON 4 MG/2 ML VIAL IVP PRN (20:59)
[2017-07-24] MEDS ORDERED: ALBUTEROL 3 ML DEYVIAL IH PRN (20:59)
[2017-07-24] MEDS: MYCOPHENOLATE MOFETIL 250 MG CAP PO SCH (22:13)
[2017-07-24] MEDS: traZODone 50 MG TAB PO SCH (22:14)
[2017-07-25] MEDS: IPRATROPIUM/ALBUTEROL 3 ML DEYVIAL IH SCH ×5 (02:03→21:15)
[2017-07-25] MEDS ORDERED: predniSONE 20 MG TAB PO SCH (08:00)
[2017-07-25] MEDS: OMEGA-3 FATTY ACIDS 1,000 MG CAP PO SCH (09:08)
[2017-07-25] MEDS: MYCOPHENOLATE MOFETIL 250 MG CAP PO SCH ×2 (09:08→20:47)
[2017-07-25] MEDS: ASPIRIN EC 81 MG TAB PO SCH (09:09)
[2017-07-25] MEDS: predniSONE 20 MG TAB PO SCH (09:09)
[2017-07-25] MEDS: lamoTRIgine 100 MG TAB PO SCH (09:10)
[2017-07-25] MEDS: CHOLECALCIFEROL VIT D3 1,000 UNITS TAB PO SCH (09:10)
[2017-07-25] MEDS: CALCIUM CARBONATE 500 MG TAB PO SCH (09:11)
[2017-07-25] MEDS: MULTIVITAMINS 1 EACH TAB PO SCH (09:11)
[2017-07-25] MEDS: ENOXAPARIN 40 MG/0.4 ML SYR SC SCH (09:12)
[2017-07-25] MEDS: FUROSEMIDE 40 MG/4 ML VIAL IVP SCH ×2 (09:12→14:59)
[2017-07-25] MEDS: ALPRAZolam 1 MG TAB PO PRN ×2 (09:19→21:21)
[2017-07-25] MEDS: buPROPion XL 150 MG TAB PO SCH (11:41)
[2017-07-25] MEDS: LISINOPRIL 10 MG TAB PO SCH (11:41)
--- NOTE | 2017-07-25 11:41 | HOSPPROG ---
Hospitalist Progress Note Assessment/Plan: Assessment: 77-year-old female presents with acute on chronic hypoxic respiratory failure in the setting of interstitial lung disease Plan: 1. Acute on chronic hypoxic respiratory failure. New problem this provider, further workup indicated. Evidenced by severe hypoxia an SpO2 of 50% on room air on presentation with visibly labored breathing and objective tachypnea with respiratory rate of 24, the patient required up titration from her home oxygen requirement of 3 liters/minute to 11 L per minute, and the patient remained hypoxic with this level of supplemental oxygen, notably an SpO2 of 88%, requiring up titration to 12 L high-flow oxygen, most likely cause is worsening interstitial lung disease with possible hypervolemic component -continue on 12 liters/minute high-flow oxygen, current saturations fluctuating between 88 and 92% -D-dimer negative, ruled out pulmonary embolism -procalcitonin negative, suggestive that there is not infection at play -given the possibility of acute diastolic congestive heart failure with increased infiltrates on chest x-ray, personally interpreted, and underlying pulmonary hypertension, get echocardiogram and empirically administer IV Lasix 40 mg twice daily, gauge effect, monitor strict I&Os 2. Interstitial lung disease. Unclear whether this is acute exacerbation/ worsening, but the patient is markedly more hypoxic than she is at baseline -reviewed outside records including 07/11/[address] Miko Wilkinson, conveys that the patient was previously treated with prednisone 40 mg twice daily, levofloxacin, CellCept 1000 once daily, during her most recent hospitalization -discussed with Dr. Miko Wilkinson, he reports he will see the patient in consultation, a notified and the patient is currently on prednisone 20 mg daily , CellCept twice daily, DuoNeb treatments -further steroid titration per Dr. Wilkinson 3. Chronic steroid dependency with chronic immunosuppression. Patient is chronically on prednisone as well as CellCept, continue to monitor for any signs of infection Diet. Regular Prophylaxis. High risk patient, Lovenox 40 Code. Do not resuscitate per patient, further advance care planning to be discussed above Disposition. Anticipated discharge is uncertain this time, upgraded to inpatient admission status given anticipated length stay is greater than 48 hr for reasonable medical necessity regarding significant oxygen requirements in the setting of acute on chronic hypoxic respiratory failure. Subjective: feeling frightened, short of breath w/ any activity, chest pain w/ inspiration Objective: Vital Signs Temp Pulse Resp BP Pulse Ox 37.3 C 97 18 147/91 H 91 L 07/25/17 08:00 07/25/17 08:00 07/25/17 08:00 07/25/17 08:00 07/25/17 08:00 - Physical Exam Constitutional: appears nourished, not in pain, chronically ill appearing, uncomfortable Cardiovascular: systolic murmur (I/ at sternum), tachycardia, No irregularly irregular, No edema Respiratory: inspiratory crackles (bilat mid-inferior segment posteriorly), respiratory distress (tachypnea), No expiratory wheeze, No bronchial breath sounds Gastrointestinal: normoactive bowel sounds, soft, non-tender abdomen, no palpable masses, No distension Skin: other (scattered ecchymoses) Neurologic: AAOx3, sensation intact bilaterally, No weakness (motor 5/5 bilat LE ) Psychiatric: not encephalopathic, thought process linear, anxious, No agitated ICD10 Worksheet Patient Problems: Problems Problem Status Onset Back pain Acute Shortness of breath Acute Interstitial lung disease Acute Hypoxemia Acute ESBL (extended spectrum beta-lactamase) producing bacteria infection Acute ~ Anxiety Active Strain of right hip Acute
--- NOTE | 2017-07-25 11:51 | ECHO ---
[email or web address] [address] [address] Main: [phone] Fax: Transthoracic Echocardiogram Name: LAMONT MCCLENDON MR#: [id number] Study Date: 07/25/2017 Study Time: 09:38 AM Date of : 1940 Age: 77 year(s) Height: 160 cm (63 in.) Weight: 79.38 kg (175 lb.) BSA: 1.83 m2 Gender: Female Examination: Echo Indication: eval EF, eval pulm htn Image Quality: Technically Difficult Contrast: Requested by: Joseph Hatfield BP: 147 mmHg/91 mmHg Heart Rate: Rhythm: Indication: eval EF, eval pulm htn Procedure Staff Wood Shop Teacher: Nina Miller [facility] Reading Physician: Kinza Carrera Requesting Provider: Conclusions: The left ventricle cavity is small. Global hypercontractility of the left ventricle. EF is 67 %. Unable to assess diastolic dysfunction. Normal size right ventricle. Normal RV function. Trivial mitral valve regurgitation. Pulmonary artery pressure is not obtained due to inadequate TR jet. There is no previous echocardiogram for comparison. Measurements: Chambers Valvular Assessment AV/MV Valvular Assessment TV/PV Normal Normal Normal Name Value Range Name Value Range Name Value Range Ao Amirah (MM): 3.3 cm (2.2 cm-3.7 AV Vmax: 1.58 m/s (1 m/s-1.7 PV Vmax: 1.15 m/s (0.6 m/s-0.9 cm) m/s) m/s) LVDd (2D): 4.1 cm (3.9 cm-5.3 AV maxP mmHg ( - ) PV PGmax: 5 mmHg ( - ) cm) LVOT Vmax: 1.02 m/s (0.7 m/s-1.1 LVDs (2D): 2.5 cm (2.1 cm-4 m/s) cm) MV E Vmax: 0.49 m/s ( - ) LVEF (MOD4): 67 % (>=55 %) MV A Vmax: 0.89 m/s ( - ) RVDd(2D): 2.9 cm (1.9 cm-3.8 MV E/A: 0.55 ( - ) cmmm) Continued Measurements: Chambers Valvular Assessment AV/MV Name Value Name Value LADs Lon.6 cm MV DecTime: 148 m/s Patient: LAMONT MCCLENDON Study Date: 07/25/2017 Page 1 of 2 09:38 AM LA Area: 18.8 cm2 LA Volume: 45 ml LA Volume Index: 24.6 ml/m2 TAPSE: 1.8 cm Additional Vessels Name Value Ao Ascendin.3 cm Findings: Left Ventricle: The left ventricle cavity is small. Global hypercontractility of the left ventricle. EF is 67 %. No regional wall motion abnormality. Unable to assess diastolic dysfunction. Right Ventricle: Normal size right ventricle. Normal RV function. Left Atrium: The left atrium is normal in size. Right Atrium: The right atrium is normal in size. Mitral Valve: Trivial mitral valve regurgitation. No mitral stenosis is present. Grossly normal mitral valve. Aortic Valve: Aortic valve is not well visualized. There is no aortic valve regurgitation. No aortic valve stenosis is present. Tricuspid Valve: Tricuspid valve not well visualized. There is no significant tricuspid valve regurgitation. Pulmonary artery pressure is not obtained due to inadequate TR jet. Pulmonic Valve: Pulmonary valve not well visualized. Aorta: Normal size aortic root measuring 3.3 cm. Normal size ascending aorta measuring 3.3 cm. IVC: The IVC is normal sized. Pericardium: No pericardial effusion. (No Signature Object) Patient: LAMONT MCCLENDON Study Date: 07/25/2017 Page 2 of 2 09:38 AM [id number]
[2017-07-25] MEDS: guaiFENesin 600 MG TAB.ER PO SCH ×2 (12:03→20:47)
--- NOTE | 2017-07-25 12:07 | PDMN ---
Medical Necessity Medical necessity: C/M review: est. > 2 MN LOS for eval and TX of acute on chronic hypoxic respiratory failure, severe hypoxia, shortness of breath, interstitial lung disease - unclear whether this is acute exacerbation / worsening requiring planned Pulmonology consult, ongoing IV Lasix, Duonebs, cardiac monitoring, supplemental O2 titration up to 12 L high-flow O2, chronic steroid dependence with chronic immunosuppression per 07/25/2017 Hospitalist progress note.
--- NOTE | 2017-07-25 14:08 | PDINTPN ---
Entrance Guard Progress Note Assessment/Plan: Assessment: Hypoxemia: Worsened. Associated with interstitial infiltrates on CXR. In the setting of NSIP, recent in increase in O2 needs which, when I saw her 2 weeks ago, I felt was most likely due to increased activity of her NSIP due to tapering of immunosuppressants as opposed to other options, such as an opportunistic infection (unlikely on minimal immunosuppression) or CAP ( empirically treated with Levaquin, respiratory panel negative). Apparently her ILD specialist at [facility], Dr. John Piedra, concurred, as he agreed with increased mycophenolate and no further testing. Since then she's had increased O2 needs. The CXR looks more like interstitial edema, but her BNP is WNL. This could just be a more refractory phase of her NSIP, or delayed response to appropriate increase immunosuppression. Plan: Agree with Lasix and increased prednisone, continue mycophenolate. If her oxygen needs don't improve, consider bronchoscopy +/- biopsy. 07/25/17 13:40 07/25/17 14:11 Subjective: The patent reports that her dyspnea is improved on increased oxygen flow. Mild dry cough. No fevers. Objective: Vital Signs Temp Pulse Resp BP Pulse Ox 37.3 C 101 H 16 130/75 H 89 L 07/25/17 11:32 07/25/17 11:32 07/25/17 11:32 07/25/17 11:32 07/25/17 11:32 CXR: Persistent/increased interstitial infiltrates. Images reviewed by me. Laboratory Tests 07/24/17 07/25/17 18:54 08:50 NT-Pro-B Natriuret Pep 264 Procalcitonin 0.06 Physical Exam - Physical Exam General Appearance: alert, no apparent distress EENT: normal ENT inspection Neck: normal inspection Respiratory: crackles (fine in bases) Cardiac/Chest: regular rate, rhythm, No edema Abdomen: normal bowel sounds, non-tender Skin: normal color, warm/dry Extremities: normal inspection Neuro/Psych: alert, normal mood/affect, oriented x 3 ICD10 Worksheet Patient Problems: Problems Problem Status Onset Hypoxemia Acute Interstitial lung disease Acute Anxiety Active Back pain Acute ESBL (extended spectrum beta-lactamase) producing bacteria infection Acute ~ Shortness of breath Acute Strain of right hip Acute
[2017-07-25] MEDS: PARoxetine HCL 20 MG TAB PO SCH (14:58)
--- NOTE | 2017-07-25 15:04 | ASMTCMCOM ---
CM Note CM Note Notes: Chart reviewed to assess dc needs. Patient just dc'd from hospital on 07/12 with [facility] and 24 hour care with [facility]. She is admitted with worsening hypoxia ith diagnosis of interstitial lung disease. She is currently on oxygen at 11 liters [place]. Anticipate resumption of prior services at discharge. Will place referral to [facility]. CM to follow. Date Signed: 07/25/2017 03:03 PM Electronically Signed By:Maria A Kaur RN
[2017-07-25] MEDS: guaiFENesin/CODEINE PHOS 10 ML UDCUP PO PRN (15:07)
[2017-07-25] MEDS: traZODone 50 MG TAB PO SCH (20:47)
[2017-07-26] MEDS: IPRATROPIUM/ALBUTEROL 3 ML DEYVIAL IH SCH ×4 (05:25→20:27)
[2017-07-26] MEDS: HYDROCODONE/APAP 5/325 TAB PO PRN (05:43)
[2017-07-26] MEDS: guaiFENesin/CODEINE PHOS 10 ML UDCUP PO PRN (05:43)
[2017-07-26] MEDS: CALCIUM CARBONATE 500 MG TAB PO SCH (08:34)
[2017-07-26] MEDS: lamoTRIgine 100 MG TAB PO SCH (08:35)
[2017-07-26] MEDS: ASPIRIN EC 81 MG TAB PO SCH (08:35)
[2017-07-26] MEDS: CHOLECALCIFEROL VIT D3 1,000 UNITS TAB PO SCH (08:35)
[2017-07-26] MEDS: OMEGA-3 FATTY ACIDS 1,000 MG CAP PO SCH (08:35)
[2017-07-26] MEDS: guaiFENesin 600 MG TAB.ER PO SCH ×2 (08:35→20:13)
[2017-07-26] MEDS: MULTIVITAMINS 1 EACH TAB PO SCH (08:36)
[2017-07-26] MEDS: MYCOPHENOLATE MOFETIL 250 MG CAP PO SCH ×2 (08:36→20:13)
[2017-07-26] MEDS: FUROSEMIDE 40 MG/4 ML VIAL IVP SCH (08:37)
[2017-07-26] MEDS: ENOXAPARIN 40 MG/0.4 ML SYR SC SCH (08:37)
[2017-07-26] MEDS: predniSONE 20 MG TAB PO SCH (08:37)
[2017-07-26] MEDS ORDERED: predniSONE 20 MG TAB PO SCH (09:00)
[2017-07-26] MEDS: ALPRAZolam 1 MG TAB PO PRN ×2 (09:24→16:39)
[2017-07-26] MEDS ORDERED: predniSONE 20 MG TAB PO ONE (10:30)
[2017-07-26] MEDS: LISINOPRIL 10 MG TAB PO SCH (11:01)
[2017-07-26] MEDS: buPROPion XL 150 MG TAB PO SCH (11:30)
--- NOTE | 2017-07-26 13:34 | PDINTPN ---
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 She remained stable, including in 03/2017, when she had urgent cervical spine surgery 2/2 intractable pain, but had no reported pulmonary issues. She was OK until 07/08/17 when she developed increasing dyspnea and increased O2 needs and was admitted to [facility]. A CTA showed worsening ILD while other labs were unremarkable including WBC and BNP. Her oxygen requirements at [place] were only 3 lpm, but she said she never really felt better. She was seen by Dr. Piedra at [place] 07/16/17 and reportedly was better on a new O2 requirement, with some confusion about her appropriate medication dosages (dc'd on pred 40 bid, MMF 1000 bid; arrived on MMF 500 bid). She was told to increase MMF to 1000 qam, 500 qpm, and continue prednisone, and Bactrim PCP prophylaxis was started. However, she called EMS 07/24/17 with similar complaints as last admission- SOB and increased O2 needs. Once admitted she was given 10-12 lpm O2 by oxymask as well as prednisone 40 bid and MF 1000 bid. Procalcitonin was 0.06 , making bacterial infection very unlikely, and BNP was 264. An echo showed no evidence of RV failure (no TR and normal RV function) and an EF of 67%. She was also initially given lasix 40 Iv bid. * Hypoxia- she clearly has a higher O2 requirement, and desaturated easily while talking to 80s% on RA (took off her mask often) and her CXR shows some worsening of infiltrates compared to 07/08/17. The etiology is uncertain to me and may represent an ongoing process related to her previous admission- eg worsening ILD in the setting of variable doses of prednisone and MMF. Both CHF and bacterial PNA are very unlikely, and her CO2 and BUN are slightly elevated so I dc'd scheduled lasix. I think BAL is unlikely to help us at this point, but may reconsider depending on her course. Check HRCT to better evaluate infiltrates. Titrate O2 to sat>90. PREET negative in past and i assume [place] ruled out CTD. No PH on echo. Subjective: Feels about the same- CHAHAL across the room. Still with high O2 needs Objective: Vital Signs Temp Pulse Resp BP Pulse Ox 37.3 C 100 16 112/78 85 L 07/26/17 12:00 07/26/17 12:00 07/26/17 12:00 07/26/17 12:00 07/26/17 12:00 Laboratory Results 07/26/17 05:00 07/25/17 07/26/17 07/27/17 05:59 05:59 05:59 Intake Total 550 Balance 550 Physical Exam - Physical Exam General Appearance: WD/WN, alert, no apparent distress, obese EENT: PERRL/EOMI Neck: supple Respiratory: decreased breath sounds, crackles, No respiratory distress, No accessory muscle use, No rhonchi, No wheezing Cardiac/Chest: normal peripheral pulses, regular rate, rhythm, No edema Abdomen: non-tender, soft, No distended Skin: normal color, warm/dry, No cyanosis Extremities: non-tender, other Neuro/Psych: alert, normal mood/affect, oriented x 3 ICD10 Worksheet Patient Problems: Problems Problem Status Onset Hypoxemia Acute Interstitial lung disease Acute Anxiety Active Back pain Acute ESBL (extended spectrum beta-lactamase) producing bacteria infection Acute ~ Shortness of breath Acute Strain of right hip Acute
[2017-07-26] MEDS: PARoxetine HCL 20 MG TAB PO SCH (14:14)
--- NOTE | 2017-07-26 16:23 | HOSPPROG ---
Hospitalist Progress Note Assessment/Plan: Assessment: 77-year-old female presents with acute on chronic hypoxic respiratory failure in the setting of interstitial lung disease Plan: 1. Acute on chronic hypoxic respiratory failure. Evidenced by severe hypoxia an SpO2 of 50% on room air on presentation with visibly labored breathing and objective tachypnea with respiratory rate of 24, the patient required up titration from her home oxygen requirement of 3 liters/minute to 11 L per minute , and the patient remained hypoxic with this level of supplemental oxygen, notably an SpO2 of 88%, requiring up titration to 12 L high-flow oxygen, most likely cause is worsening interstitial lung disease as present on CXR ( personally interpreted) -sats continue at 85% w/ speaking at 11 LPM, rec uptitration back to 12LPM -D-dimer negative, ruled out pulmonary embolism; PCT normal making bacterial infxn unlikely -no significant improvement w/ lasix, stopped -continue symptomatic management with cough suppressant as needed -per Dr. Wilkinson's consultation 07/25, increase pred, up to 40mg today, gauge effect, cont cellcept bid -appreciate Dr. Jones's consult today 2. Interstitial lung disease. Likely acute worsening, getting high-res CT 3. Chronic steroid dependency with chronic immunosuppression. Patient is chronically on prednisone as well as CellCept, continue to monitor for any signs of infection Diet. Regular Prophylaxis. High risk patient, Lovenox 40 Code. Do not resuscitate per patient Disposition. Anticipated discharge is uncertain this time, upgraded to inpatient admission status given anticipated length stay is greater than 48 hr for reasonable medical necessity regarding significant oxygen requirements in the setting of acute on chronic hypoxic respiratory failure. High-level medical complexity, high risk patient for worsening morbidity and/or mortality given the issues above. Subjective: patient w/ distress regarding cough, ongoing SOB w/ any activity/ speaking Objective: Vital Signs Temp Pulse Resp BP Pulse Ox 37.3 C 104 H 18 112/78 91 L 07/26/17 12:00 07/26/17 16:05 07/26/17 16:05 07/26/17 12:00 07/26/17 16:05 Laboratory Results 07/26/17 05:00 07/25/17 07/26/17 07/27/17 05:59 05:59 05:59 Intake Total 550 Balance 550 - Physical Exam Constitutional: no apparent distress, not in pain, chronically ill appearing, uncomfortable Cardiovascular: regular rate and rhythym, no murmur, rub, or gallop, No irregularly irregular, No edema Respiratory: inspiratory crackles (bilat mid posterior segs), respiratory distress (visibly tachypneic w/ speaking), No reduced air movement, No expiratory wheeze, No bronchial breath sounds Gastrointestinal: normoactive bowel sounds, soft, non-tender abdomen, no palpable masses, No distension Neurologic: AAOx3, sensation intact bilaterally, No weakness Psychiatric: not encephalopathic, thought process linear, anxious, No agitated ICD10 Worksheet Patient Problems: Problems Problem Status Onset Back pain Acute Shortness of breath Acute Interstitial lung disease Acute Hypoxemia Acute ESBL (extended spectrum beta-lactamase) producing bacteria infection Acute ~ Anxiety Active Strain of right hip Acute
[2017-07-26] MEDS: traZODone 50 MG TAB PO SCH (20:13)
[2017-07-27] MEDS: IPRATROPIUM/ALBUTEROL 3 ML DEYVIAL IH SCH ×4 (05:26→21:04)
[2017-07-27] MEDS: MULTIVITAMINS 1 EACH TAB PO SCH (08:27)
[2017-07-27] MEDS: lamoTRIgine 100 MG TAB PO SCH (08:27)
[2017-07-27] MEDS: predniSONE 20 MG TAB PO SCH (08:28)
[2017-07-27] MEDS: OMEGA-3 FATTY ACIDS 1,000 MG CAP PO SCH (08:29)
[2017-07-27] MEDS: ENOXAPARIN 40 MG/0.4 ML SYR SC SCH (08:29)
[2017-07-27] MEDS: CALCIUM CARBONATE 500 MG TAB PO SCH (08:30)
[2017-07-27] MEDS: CHOLECALCIFEROL VIT D3 1,000 UNITS TAB PO SCH (08:31)
[2017-07-27] MEDS: MYCOPHENOLATE MOFETIL 250 MG CAP PO SCH ×2 (08:32→21:41)
[2017-07-27] MEDS: guaiFENesin 600 MG TAB.ER PO SCH ×2 (08:32→21:41)
[2017-07-27] MEDS: ASPIRIN EC 81 MG TAB PO SCH (08:32)
[2017-07-27] MEDS ORDERED: predniSONE 20 MG TAB PO SCH (09:00)
[2017-07-27] MEDS: ACETAMINOPHEN 325 MG TAB PO PRN (09:55)
[2017-07-27] MEDS: LISINOPRIL 10 MG TAB PO SCH (11:50)
[2017-07-27] MEDS: buPROPion XL 150 MG TAB PO SCH (11:50)
--- NOTE | 2017-07-27 13:43 | PDINTPN ---
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 She remained stable, including in 03/2017, when she had urgent cervical spine surgery 2/2 intractable pain, but had no reported pulmonary issues. She was OK until 07/08/17 when she developed increasing dyspnea and increased O2 needs and was admitted to [facility]. A CTA showed worsening ILD while other labs were unremarkable including WBC and BNP. Her oxygen requirements at [place] were only 3 lpm, but she said she never really felt better. She was seen by Dr. Piedra at [place] 07/16/17 and reportedly was better on a new O2 requirement, with some confusion about her appropriate medication dosages (dc'd on pred 40 bid, MMF 1000 bid; arrived on MMF 500 bid). She was told to increase MMF to 1000 qam, 500 qpm, and continue prednisone, and Bactrim PCP prophylaxis was started. However, she called EMS 07/24/17 with similar complaints as last admission- SOB and increased O2 needs. Once admitted she was given 10-12 lpm O2 by oxymask as well as prednisone 40 bid and MF 1000 bid. Procalcitonin was 0.06 , making bacterial infection very unlikely, and BNP was 264. An echo showed no evidence of RV failure (no TR and normal RV function) and an EF of 67%. She was also initially given lasix 40 Iv bid. * ILD and Hypoxia- she clearly has a higher O2 requirement, and desaturated easily while talking to 80s% on RA (took off her mask often). The etiology is uncertain to me and may represent an ongoing process related to her previous admission- eg worsening ILD in the setting of variable doses of prednisone and MMF. However, she is now s/p HRCT and compared to 07/08/17, looks substantially worse in terms of diffuse reticular infiltrates without predominance of region and no pleural effusion (official read pending). Both CHF and bacterial PNA seem unlikely, so diuretics were stopped 07/26 and there are no current antibiotics. Her current prednisone is at 40 mg daily and MMF at 1000 BID. I have left a message for Dr. 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 07/27/17 13:37 Subjective: No events overnight, though O2 requirements remain high. Objective: Vital Signs Temp Pulse Resp BP Pulse Ox 36.6 C 103 H 20 144/79 H 93 07/27/17 10:53 07/27/17 11:52 07/27/17 11:52 07/27/17 10:53 07/27/17 11:52 Microbiology 07/27/17 08:43 Respiratory Panel (PCR) - Final Nasal, Sinus - Swab No Organism Detected Laboratory Results 07/27/17 04:45 07/26/17 07/27/17 07/28/17 05:59 05:59 05:59 Intake Total 550 1450 Output Total 300 Balance 550 1450 -300 Physical Exam - Physical Exam General Appearance: alert, no apparent distress, obese EENT: PERRL/EOMI Neck: supple Respiratory: crackles, No respiratory distress, No accessory muscle use Cardiac/Chest: regular rate, rhythm, No edema Abdomen: non-tender, soft, No distended Skin: normal color, warm/dry, No cyanosis Lymphatic: no adenopathy Extremities: No pedal edema Neuro/Psych: alert, normal mood/affect, oriented x 3 ICD10 Worksheet Patient Problems: Problems Problem Status Onset Hypoxemia Acute Interstitial lung disease Acute Anxiety Active Back pain Acute ESBL (extended spectrum beta-lactamase) producing bacteria infection Acute ~ Shortness of breath Acute Strain of right hip Acute
--- NOTE | 2017-07-27 15:19 | HOSPPROG ---
Hospitalist Progress Note Assessment/Plan: Assessment: 77-year-old female presents with acute on chronic hypoxic respiratory failure in the setting of interstitial lung disease Plan: 1. Acute on chronic hypoxic respiratory failure. SpO2 of 85% on 11LPM today, requiring up titration to 12 L high-flow oxygen, most likely cause is worsening interstitial lung disease, but other opportunistic infxn will be ruled out on BAL tomorrow -d/w Dr. Jones, he recs BAL given worsening on high res CT (personally interpreted) -cont on pred 40, cellcept 1000 bid, high flow o2 -RVP neg for viral precipitant 2. Interstitial lung disease. Likely acute worsening on CT 3. Chronic steroid dependency with chronic immunosuppression. Patient is chronically on prednisone as well as CellCept, getting BAL in AM Diet. Regular Prophylaxis. High risk patient, Lovenox 40 Code. Do not resuscitate per patient, will temp hold code status during bronch tomorrow and plan for max 2 days on vent if she requires Disposition. Anticipated discharge is uncertain this time, upgraded to inpatient admission status given anticipated length stay is greater than 48 hr for reasonable medical necessity regarding significant oxygen requirements in the setting of acute on chronic hypoxic respiratory failure. High-level medical complexity, high risk patient for worsening morbidity and/or mortality given the issues above. Subjective: patient anxious, SOB w/ exertion Objective: Vital Signs Temp Pulse Resp BP Pulse Ox 36.6 C 108 H 20 144/79 H 92 07/27/17 10:53 07/27/17 14:33 07/27/17 14:33 07/27/17 10:53 07/27/17 14:33 Microbiology 07/27/17 08:43 Respiratory Panel (PCR) - Final Nasal, Sinus - Swab No Organism Detected Laboratory Results 07/27/17 04:45 07/26/17 07/27/17 07/28/17 05:59 05:59 05:59 Intake Total 550 1450 Output Total 300 Balance 550 1450 -300 - Physical Exam Constitutional: no apparent distress, not in pain, chronically ill appearing, uncomfortable Cardiovascular: tachycardia, No systolic murmur, No irregularly irregular, No edema Respiratory: inspiratory crackles (bilat post segs), respiratory distress ( tachypnea w/ any movement), No expiratory wheeze, No bronchial breath sounds Gastrointestinal: normoactive bowel sounds, soft, non-tender abdomen, no palpable masses Neurologic: AAOx3, sensation intact bilaterally, No weakness Psychiatric: not encephalopathic, thought process linear, anxious, No agitated ICD10 Worksheet Patient Problems: Problems Problem Status Onset Back pain Acute Shortness of breath Acute Interstitial lung disease Acute Hypoxemia Acute ESBL (extended spectrum beta-lactamase) producing bacteria infection Acute ~ Anxiety Active Strain of right hip Acute
[2017-07-27] MEDS: ALPRAZolam 1 MG TAB PO PRN ×2 (15:38→21:41)
[2017-07-27] MEDS: PARoxetine HCL 20 MG TAB PO SCH (15:38)
--- NOTE | 2017-07-27 16:28 | ASMTCMCOM ---
CM Note CM Note Notes: CM spoke w/ Kathie regarding d/c POC. Pt will go to surgery tomorrow. Pt will most likely be transfer to the ICU afterwards. Pt is currently on 10L of o2 opposed to being at 3L of o2 at baseline. Pt is current w/ [facility] and 24hr care with [facility]. It is uncertain as to what type of needs pt will have after surgery. CM to follow. Plan: TBD; [facility] and [facility]hr care w/ [facility] Date Signed: 07/27/2017 04:27 PM Electronically Signed By:FROY Hill
[2017-07-27] MEDS: traZODone 50 MG TAB PO SCH (21:41)
[2017-07-27] MEDS: guaiFENesin/CODEINE PHOS 10 ML UDCUP PO PRN (22:40)
[2017-07-28] MEDS: IPRATROPIUM/ALBUTEROL 3 ML DEYVIAL IH SCH ×4 (05:57→20:54)
[2017-07-28] MEDS: ACETAMINOPHEN 325 MG TAB PO PRN (09:01)
[2017-07-28] MEDS: ALPRAZolam 1 MG TAB PO PRN ×3 (09:01→21:34)
[2017-07-28] MEDS: predniSONE 20 MG TAB PO SCH (09:04)
[2017-07-28] MEDS: OMEGA-3 FATTY ACIDS 1,000 MG CAP PO SCH (09:04)
[2017-07-28] MEDS: MULTIVITAMINS 1 EACH TAB PO SCH (09:05)
[2017-07-28] MEDS: lamoTRIgine 100 MG TAB PO SCH (09:05)
[2017-07-28] MEDS: MYCOPHENOLATE MOFETIL 250 MG CAP PO SCH ×2 (09:05→21:34)
[2017-07-28] MEDS: ASPIRIN EC 81 MG TAB PO SCH (09:05)
[2017-07-28] MEDS: CALCIUM CARBONATE 500 MG TAB PO SCH (09:05)
[2017-07-28] MEDS: guaiFENesin 600 MG TAB.ER PO SCH ×2 (09:05→21:34)
[2017-07-28] MEDS: ENOXAPARIN 40 MG/0.4 ML SYR SC SCH (09:07)
[2017-07-28] MEDS: CHOLECALCIFEROL VIT D3 1,000 UNITS TAB PO SCH (09:07)
[2017-07-28] MEDS: LISINOPRIL 10 MG TAB PO SCH (11:30)
[2017-07-28] MEDS: buPROPion XL 150 MG TAB PO SCH (11:31)
[2017-07-28] MEDS: PARoxetine HCL 20 MG TAB PO SCH (14:51)
--- NOTE | 2017-07-28 17:01 | PDINTPN ---
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 She remained stable, including in 03/2017, when she had urgent cervical spine surgery 2/2 intractable pain, but had no reported pulmonary issues. She was OK until 07/08/17 when she developed increasing dyspnea and increased O2 needs and was admitted to [facility]. A CTA showed worsening ILD while other labs were unremarkable including WBC and BNP. Her oxygen requirements at [place] were only 3 lpm, but she said she never really felt better. She was seen by Dr. Piedra at [place] 07/16/17 and reportedly was better on a new O2 requirement, with some confusion about her appropriate medication dosages (dc'd on pred 40 bid, MMF 1000 bid; arrived on MMF 500 bid). She was told to increase MMF to 1000 qam, 500 qpm, and continue prednisone, and Bactrim PCP prophylaxis was started. However, she called EMS 07/24/17 with similar complaints as last admission- SOB and increased O2 needs. Once admitted she was given 10-12 lpm O2 by oxymask as well as prednisone 40 bid and MF 1000 bid. Procalcitonin was 0.06 , making bacterial infection very unlikely, and BNP was 264. An echo showed no evidence of RV failure (no TR and normal RV function) and an EF of 67%. She was also initially given lasix 40 Iv bid. * ILD and Hypoxia- she clearly has a higher O2 requirement, and desaturated easily while talking to 80s% on RA (took off her mask often). The etiology is uncertain to me and may represent an ongoing process related to her previous admission- eg worsening ILD in the setting of variable doses of prednisone and MMF. However, she is now s/p HRCT and compared to 07/08/17, looks substantially worse in terms of diffuse reticular infiltrates without predominance of region and no pleural effusion (official read pending). Both CHF and bacterial PNA seem unlikely, so diuretics were stopped 07/26 and there are no current antibiotics. Her current prednisone is at 40 mg daily and MMF at 1000 BID. I have left a message for Dr. John Piedra at [place] (her regular bridges and buildings supervisor), but think a BAL to rule out PCP is needed. * I spoke to Dr. John Piedra at [place] today, who normally follows her and he agreed that BAL was indicated. After further discussion with the patient and her daughter, she agreed to proceed. In the very unlikely event that respiratory failure ensues, she is to only be on a vent for no more than 6 days. 07/27/17 13:37 07/28/17 16:59 Subjective: patient cancelled bronch today Objective: Vital Signs Temp Pulse Resp BP Pulse Ox 37 C 105 H 20 126/57 H 89 L 07/28/17 15:21 07/28/17 15:21 07/28/17 15:21 07/28/17 15:21 07/28/17 15:21 Microbiology 07/27/17 08:43 Respiratory Panel (PCR) - Final Nasal, Sinus - Swab No Organism Detected Laboratory Results 07/28/17 05:09 07/27/17 07/28/17 07/29/17 05:59 05:59 05:59 Intake Total 1450 700 Output Total 1600 Balance 1450 -900 Physical Exam - Physical Exam General Appearance: WD/WN, alert, obese EENT: PERRL/EOMI Neck: supple Respiratory: decreased breath sounds, crackles, No respiratory distress, No accessory muscle use Cardiac/Chest: regular rate, rhythm, No edema Abdomen: non-tender, soft, No distended Skin: normal color, warm/dry, No cyanosis Lymphatic: no adenopathy Extremities: No pedal edema Neuro/Psych: alert, normal mood/affect, oriented x 3 ICD10 Worksheet Patient Problems: Problems Problem Status Onset Hypoxemia Acute Interstitial lung disease Acute Anxiety Active Back pain Acute ESBL (extended spectrum beta-lactamase) producing bacteria infection Acute ~ Shortness of breath Acute Strain of right hip Acute
--- NOTE | 2017-07-28 17:42 | HOSPPROG ---
Hospitalist Progress Note Assessment/Plan: Assessment: 77-year-old female presents with acute on chronic hypoxic respiratory failure in the setting of interstitial lung disease Plan: 1. Acute on chronic hypoxic respiratory failure. Remains on 10LPM high flow today, ongoing SOB w/ ambulation but feels like it her debility is not improving , most likely cause is worsening interstitial lung disease, but other opportunistic infxn will be ruled out on BAL tomorrow -plan to r/o PJP on BAL -d/w patient and daughter, she is very clear that, in the event of resp failure requiring ventilator, she would not want more than 6 days of intubation -she wants to remain DNR/DNI outside of the BAL -cont on pred 40, cellcept 1000 bid, high flow o2 -RVP neg for viral precipitant -counseled patient that her condition has stabilized, but has not gotten particularly better; that said, if this is all from worsening ILD, it is possible that w/ the steroids increased from 20->40, she may experience some improvement slowly over time; she may get o2 requirements down to a rate that can be arranged at either SNF or home, and over the next couple weeks she may experience increased activity levels, but I advised patient/daughter to be cautiously optimistic 2. Interstitial lung disease. Likely acute worsening on CT 3. Chronic steroid dependency with chronic immunosuppression. Patient is chronically on prednisone as well as CellCept, getting BAL in AM 4. Chronic benzodiazepine dependency. Patient usually take xanax twice daily at home, requesting increased freq given stress of current condition, agree that this is safe at q6hrs PRN 5. Chest pain. Likely 2/2 cough, cont to use anti-tussives as needed -checking trop/dimer, dimer originally negative Diet. Regular Prophylaxis. High risk patient, Lovenox 40 Code. Do not resuscitate per patient, will temp hold code status during bronch tomorrow and plan for max 6 days on vent if she requires Disposition. Anticipated discharge is uncertain this time, remains clinically unresolved on 10LPM Subjective: very short of breath w/ minimal activity, chest pain this AM Objective: Vital Signs Temp Pulse Resp BP Pulse Ox 37 C 101 H 20 126/57 H 90 L 07/28/17 15:21 07/28/17 16:42 07/28/17 16:42 02/21/18 15:21 07/28/17 16:42 Laboratory Results 07/28/17 05:09 07/27/17 07/28/17 07/29/17 05:59 05:59 05:59 Intake Total 1450 700 Output Total 1600 Balance 1450 -900 - Time Spent With Patient Time Spent with Patient: greater than 35 minutes Time Spent with Patient: Greater than 35 minutes spent on this patients care, greater than 50% of time spent counseling, educating, and coordinating care regarding the above mentioned plan. - Physical Exam Constitutional: not in pain, chronically ill appearing, uncomfortable Cardiovascular: regular rate and rhythym, no murmur, rub, or gallop, No edema Respiratory: inspiratory crackles (bilat posterior segs), No expiratory wheeze, No bronchial breath sounds Gastrointestinal: normoactive bowel sounds, soft, non-tender abdomen, no palpable masses Musculoskeletal: other (no tenderness over anterior pectoralis R side) Neurologic: AAOx3 Psychiatric: not encephalopathic, thought process linear, anxious, No agitated ICD10 Worksheet Patient Problems: Problems Problem Status Onset Back pain Acute Shortness of breath Acute Interstitial lung disease Acute Hypoxemia Acute ESBL (extended spectrum beta-lactamase) producing bacteria infection Acute ~ Anxiety Active Strain of right hip Acute
[2017-07-28] MEDS: guaiFENesin/CODEINE PHOS 10 ML UDCUP PO PRN (21:34)
[2017-07-28] MEDS: traZODone 50 MG TAB PO SCH (21:34)
[2017-07-29] MEDS: IPRATROPIUM/ALBUTEROL 3 ML DEYVIAL IH SCH ×4 (06:11→21:25)
[2017-07-29] MEDS ORDERED: LR 1,000 ML IV ONE (07:05)
[2017-07-29] MEDS ORDERED: LIDOCAINE 2% JELLY 5 ML TUBE ONE (07:10)
[2017-07-29] MEDS ORDERED: ALBUTEROL 3 ML DEYVIAL ONE (07:10)
[2017-07-29] MEDS ORDERED: LIDOCAINE 1% 300 MG/30 ML SDV ONE (07:10)
[2017-07-29] MEDS ORDERED: fentaNYL 100 MCG/2 ML INJ ONE (07:34)
[2017-07-29] MEDS ORDERED: MIDAZOLAM 2 MG/2 ML VIAL ONE ×2 (07:34→07:36)
--- NOTE | 2017-07-29 08:26 | PDINTPN ---
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 She remained stable, including in 03/2017, when she had urgent cervical spine surgery 2/2 intractable pain, but had no reported pulmonary issues. She was OK until 07/08/17 when she developed increasing dyspnea and increased O2 needs and was admitted to [facility]. A CTA showed worsening ILD while other labs were unremarkable including WBC and BNP. Her oxygen requirements at [place] were only 3 lpm, but she said she never really felt better. She was seen by Dr. Piedra at [place] 07/16/17 and reportedly was better on a new O2 requirement, with some confusion about her appropriate medication dosages (dc'd on pred 40 bid, MMF 1000 bid; arrived on MMF 500 bid). She was told to increase MMF to 1000 qam, 500 qpm, and continue prednisone, and Bactrim PCP prophylaxis was started. However, she called EMS 07/24/17 with similar complaints as last admission- SOB and increased O2 needs. Once admitted she was given 10-12 lpm O2 by oxymask as well as prednisone 40 bid and MF 1000 bid. Procalcitonin was 0.06 , making bacterial infection very unlikely, and BNP was 264. An echo showed no evidence of RV failure (no TR and normal RV function) and an EF of 67%. She was also initially given lasix 40 Iv bid. * ILD and Hypoxia with acute on chronic disease. The etiology is uncertain to me and may represent an ongoing process related to her previous admission- eg worsening ILD in the setting of variable doses of prednisone and MMF. However, HRCT compared to 07/08/17, looks substantially worse in terms of diffuse reticular infiltrates without predominance of region and no pleural effusion. Both CHF and bacterial PNA seem unlikely, so diuretics were stopped 07/26 and there are no current antibiotics. Her current prednisone is at 40 mg daily and MMF at 1000 BID. [facility], which occurred this am without difficulty. * 07/27/17 13:37 07/28/17 16:59 07/29/17 08:23 Subjective: no events Objective: Vital Signs Temp Pulse Resp BP Pulse Ox 36.1 C 88 18 124/80 H 92 07/29/17 06:58 07/29/17 06:58 07/29/17 06:58 07/29/17 06:58 07/29/17 06:58 Laboratory Results 07/28/17 05:09 07/28/17 07/29/17 07/30/17 05:59 05:59 05:59 Intake Total 700 2800 Output Total 1600 1400 500 Balance -900 1400 -500 Physical Exam - Physical Exam General Appearance: WD/WN, alert, no apparent distress, obese, other (exam pre- bronch) EENT: PERRL/EOMI Neck: supple Respiratory: decreased breath sounds, crackles, No respiratory distress, No accessory muscle use, No stridor, No wheezing Cardiac/Chest: regular rate, rhythm, No edema Abdomen: non-tender, soft, No distended Skin: normal color, warm/dry, No cyanosis Lymphatic: no adenopathy Extremities: No pedal edema Neuro/Psych: alert, normal mood/affect, oriented x 3 ICD10 Worksheet Patient Problems: Problems Problem Status Onset Hypoxemia Acute Interstitial lung disease Acute Anxiety Active Back pain Acute ESBL (extended spectrum beta-lactamase) producing bacteria infection Acute ~ Shortness of breath Acute Strain of right hip Acute
--- NOTE | 2017-07-29 08:37 | GPN ---
[f rep st] PROCEDURE NOTE DATE OF PROCEDURE: 07/29/2017 PROCEDURE: Bronchoscopy with bronchoalveolar lavage. INDICATION: Worsening infiltrates on CT scan. CONSENT: Informed consent was obtained from the patient prior to the administration of anesthesia. The risks and benefits of the procedure and conscious sedation were explained in detail and the patie nt agreed to proceed. Conscious sedation was achieved using a total of 4 mg IV Versed, 100 mcg of IV fentanyl. The patient tolerated this well and was conversing at the end of the procedure. DESCRIPTION OF PROCEDURE: After application of topical lidocaine, bronchoscope was passed through th e oropharynx, which had excess soft tissue to the vocal cords. The vocal cords appeared to move norm ally. There were no lesions observed. The main trachea had no abnormalities. There may have been m ild tracheomalacia as there was apparent greater than 50% collapse of the trachea initially. Inspect ion of the right upper lobe, right middle lobe and right lower lobe segments did not reveal any patho logy. The mucosa was normal. There were no excess secretions seen in this region. The left mainste m bronchus was normal as well without mucosal abnormalities, mucus plugs, or other changes. The left upper lobe division did appear to be slightly more erythematous than the other regions but only in a slight manner and there were no obvious other mucosal abnormalities. There were no significant secr etions. The left lower lobe segments were also clear and free of significant secretions. Attention was drawn to the left upper lobe where bronchoalveolar lavage was performed. Three aliquots of 40 cc of normal saline were instilled. A total of 45 cc were returned without evidence of blood or diffuse alveolar hemorrhage. The fluid r eturn was cloudy and mildly yellow. The patient tolerated the procedure well. There were no obvious complications and specimens were sent to Microbiology as well as Hematology for analysis. /[id number]/MODL
[2017-07-29] MEDS: predniSONE 20 MG TAB PO SCH (09:21)
[2017-07-29] MEDS: ASPIRIN EC 81 MG TAB PO SCH (09:22)
[2017-07-29] MEDS: guaiFENesin 600 MG TAB.ER PO SCH ×2 (09:22→21:48)
[2017-07-29] MEDS: CHOLECALCIFEROL VIT D3 1,000 UNITS TAB PO SCH (09:22)
[2017-07-29] MEDS: CALCIUM CARBONATE 500 MG TAB PO SCH (09:22)
[2017-07-29] MEDS: OMEGA-3 FATTY ACIDS 1,000 MG CAP PO SCH (09:24)
[2017-07-29] MEDS: MULTIVITAMINS 1 EACH TAB PO SCH (09:24)
[2017-07-29] MEDS: MYCOPHENOLATE MOFETIL 250 MG CAP PO SCH ×2 (09:24→21:48)
[2017-07-29] MEDS: lamoTRIgine 100 MG TAB PO SCH (09:24)
[2017-07-29] MEDS: ENOXAPARIN 40 MG/0.4 ML SYR SC SCH (09:26)
--- NOTE | 2017-07-29 10:01 | HOSPPROG ---
Hospitalist Progress Note Assessment/Plan: 77-year-old female with acute on chronic hypoxic respiratory failure in the setting of progressive interstitial lung disease Acute on chronic hypoxic respiratory failure - known chronic interstitial lung disease with recent decline. Worsening appearance on repeat CT. Discussed with Pulm. Remains on 10LPM high flow. Resp viral panel neg. D dimer neg x2. BNP 240. Repeat CXR today looks worse, though may be related to fluid from bronch today. WBC's up, but PCT neg. Again, could be related to bronch. -bronch this am to r/o PCP, cytology also sent -cont pred 40, cellcept 1000 bid, high flow o2 Chronic steroid dependency with chronic immunosuppression. Patient is chronically on prednisone as well as CellCept -bronch with BAL this am Chronic benzodiazepine dependency. Patient usually take xanax twice daily at home. -increased to q6h given acute stressor Chest pain. Likely 2/2 cough, cont to use anti-tussives as needed. Trop neg x2. D dimer neg. Diet. Regular Prophylaxis. High risk patient, Lovenox 40 Code. DNR. Disposition. Cont inpt due to ongoing need for high flow O2 Subjective: Pt remains a bit SOB, on high flow O2. No CP. No fevers. She had some shivering today post-bronch. Note room temperature very low. Objective: Vital Signs Temp Pulse Resp BP Pulse Ox 36.1 C 88 22 H 109/66 92 07/29/17 06:58 07/29/17 06:58 07/29/17 08:21 07/29/17 09:00 07/29/17 09:00 Laboratory Results 07/28/17 05:09 07/28/17 07/29/17 07/30/17 05:59 05:59 05:59 Intake Total 700 2800 Output Total 1600 1400 500 Balance -900 1400 -500 - Physical Exam Constitutional: no apparent distress Eyes: PERRL Ears, Nose, Mouth, Throat: moist mucous membranes Cardiovascular: regular rate and rhythym Respiratory: no respiratory distress, inspiratory crackles Gastrointestinal: normoactive bowel sounds, soft, non-tender abdomen Skin: warm Musculoskeletal: full muscle strength Neurologic: AAOx3 Psychiatric: interacting appropriately ICD10 Worksheet Patient Problems: Problems Problem Status Onset Hypoxemia Acute Interstitial lung disease Acute Anxiety Active Back pain Acute ESBL (extended spectrum beta-lactamase) producing bacteria infection Acute ~ Shortness of breath Acute Strain of right hip Acute
[2017-07-29] MEDS: LISINOPRIL 10 MG TAB PO SCH (11:20)
[2017-07-29] MEDS: ALPRAZolam 1 MG TAB PO PRN ×2 (11:20→21:48)
[2017-07-29] MEDS: buPROPion XL 150 MG TAB PO SCH (11:20)
[2017-07-29] MEDS: ACETAMINOPHEN 325 MG TAB PO PRN (13:03)
[2017-07-29] MEDS: guaiFENesin/CODEINE PHOS 10 ML UDCUP PO PRN ×2 (13:06→21:47)
[2017-07-29] MEDS: BENZONATATE 100 MG CAP PO PRN (13:06)
[2017-07-29] MEDS: PARoxetine HCL 20 MG TAB PO SCH (14:03)
[2017-07-29 14:37] LABS: PLATELET COUNT 227 10^3/uL (150-400)
--- NOTE | 2017-07-29 17:36 | ASMTCMCOM ---
CM Note CM Note Notes: Spoke w/RN, dc date unclear, pt has high O2 needs. She is on10L oxymask, update sent to [facility]. DC Plan: [facility] + 24hr care w/[facility] Date Signed: 07/29/2017 05:35 PM Electronically Signed By:Trina Sotelo RN
[2017-07-29] MEDS: traZODone 50 MG TAB PO SCH (21:48)
[2017-07-29] MEDS: HYDROCODONE/APAP 5/325 TAB PO PRN (21:48)
[2017-07-30] MEDS: IPRATROPIUM/ALBUTEROL 3 ML DEYVIAL IH SCH ×4 (06:07→21:01)
[2017-07-30 06:11] LABS: PLATELET COUNT 243 10^3/uL (150-400)
[2017-07-30] MEDS: CHOLECALCIFEROL VIT D3 1,000 UNITS TAB PO SCH (08:12)
[2017-07-30] MEDS: ENOXAPARIN 40 MG/0.4 ML SYR SC SCH (08:12)
[2017-07-30] MEDS: guaiFENesin 600 MG TAB.ER PO SCH ×2 (08:13→20:14)
[2017-07-30] MEDS: CALCIUM CARBONATE 500 MG TAB PO SCH (08:13)
[2017-07-30] MEDS: MULTIVITAMINS 1 EACH TAB PO SCH (08:13)
[2017-07-30] MEDS: MYCOPHENOLATE MOFETIL 250 MG CAP PO SCH ×2 (08:13→20:14)
[2017-07-30] MEDS: ASPIRIN EC 81 MG TAB PO SCH (08:14)
[2017-07-30] MEDS: OMEGA-3 FATTY ACIDS 1,000 MG CAP PO SCH (08:14)
[2017-07-30] MEDS: predniSONE 20 MG TAB PO SCH (08:14)
[2017-07-30] MEDS: lamoTRIgine 100 MG TAB PO SCH (08:14)
[2017-07-30] MEDS: buPROPion XL 150 MG TAB PO SCH (12:20)
[2017-07-30] MEDS: LISINOPRIL 10 MG TAB PO SCH (12:20)
[2017-07-30] MEDS: guaiFENesin/CODEINE PHOS 10 ML UDCUP PO PRN (12:21)
--- NOTE | 2017-07-30 12:44 | HOSPPROG ---
Hospitalist Progress Note Assessment/Plan: 77-year-old female with acute on chronic hypoxic respiratory failure in the setting of progressive interstitial lung disease Acute on chronic hypoxic respiratory failure - known chronic interstitial lung disease with recent decline. Worsening appearance on repeat CT. Discussed with Pulm. Remains on 10LPM high flow. Resp viral panel neg. D dimer neg x2. BNP 240. Repeat CXR yest with worsening appearance, could be some fluid from bronch contributing. Overall stable today. -PCP, cytology, fungal, bacterial, cultures from BAL pending -cont pred 40, cellcept 1000 bid, high flow o2 Chronic steroid dependency with chronic immunosuppression. Patient is chronically on prednisone as well as CellCept Chronic benzodiazepine dependency. Patient usually take xanax twice daily at home, had increased to q6h here. -change to klonopin 1 mg bid Hypercalcemia. -check PTH, vit D Diet. Regular Prophylaxis. High risk patient, Lovenox 40 Code. DNR. Disposition. Cont inpt due to ongoing need for high flow O2 Subjective: Pt doing ok, feels a little better today. No fevers. Coughing quite a bit. Continues to use face mask with high flow O2. Objective: Vital Signs Temp Pulse Resp BP Pulse Ox 37.1 C 93 20 156/84 H 94 07/30/17 12:00 07/30/17 12:00 07/30/17 12:00 07/30/17 12:20 07/30/17 12:00 Microbiology 07/29/17 07:30 Gram Stain - Final Other - Aspirate 07/29/17 07:30 Gram Stain - Final Lung - Bronchial Washings 07/29/17 07:30 Mycobacterial Smear (NIKOLAS) - Final Other - Aspirate 07/29/17 07:30 Mycobacterial Smear (NIKOLAS) - Final Other - Aspirate Laboratory Results 07/30/17 05:27 07/30/17 05:27 07/29/17 07/30/17 07/31/17 05:59 05:59 05:59 Intake Total 2800 3500 Output Total 1400 500 Balance 1400 3000 - Physical Exam Constitutional: no apparent distress Eyes: PERRL Ears, Nose, Mouth, Throat: moist mucous membranes Cardiovascular: regular rate and rhythym Respiratory: no respiratory distress, inspiratory crackles Gastrointestinal: normoactive bowel sounds, soft, non-tender abdomen Skin: warm Musculoskeletal: full muscle strength Neurologic: AAOx3 Psychiatric: interacting appropriately ICD10 Worksheet Patient Problems: Problems Problem Status Onset Hypoxemia Acute Interstitial lung disease Acute Anxiety Active Back pain Acute ESBL (extended spectrum beta-lactamase) producing bacteria infection Acute ~ Shortness of breath Acute Strain of right hip Acute
--- NOTE | 2017-07-30 13:25 | PDINTPN ---
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 She remained stable, including in 03/2017, when she had urgent cervical spine surgery 2/2 intractable pain, but had no reported pulmonary issues. She was OK until 07/08/17 when she developed increasing dyspnea and increased O2 needs and was admitted to [facility]. A CTA showed worsening ILD while other labs were unremarkable including WBC and BNP. Her oxygen requirements at [place] were only 3 lpm, but she said she never really felt better. She was seen by Dr. Piedra at [place] 07/16/17 and reportedly was better on a new O2 requirement, with some confusion about her appropriate medication dosages (dc'd on pred 40 bid, MMF 1000 bid; arrived on MMF 500 bid). She was told to increase MMF to 1000 qam, 500 qpm, and continue prednisone, and Bactrim PCP prophylaxis was started. However, she called EMS 07/24/17 with similar complaints as last admission- SOB and increased O2 needs. Once admitted she was given 10-12 lpm O2 by oxymask as well as prednisone 40 bid and MF 1000 bid. Procalcitonin was 0.06 , making bacterial infection very unlikely, and BNP was 264. An echo showed no evidence of RV failure (no TR and normal RV function) and an EF of 67%. She was also initially given lasix 40 Iv bid. * ILD and Hypoxia with acute on chronic disease. The etiology is uncertain to me and may represent an ongoing process related to her previous admission- eg worsening ILD in the setting of variable doses of prednisone and MMF. However, HRCT compared to 07/08/17, looks substantially worse in terms of diffuse reticular infiltrates without predominance of region and no pleural effusion. Both CHF and bacterial PNA seem unlikely, so diuretics were stopped 07/26 and there are no current antibiotics. Her current prednisone is at 40 mg daily and MMF at 1000 BID. * BAL 07/29 unremarkable- inital gram stain without organisms but PCP is still pending. Dr. Wilkinson will assume service tomorrow, who knows her well Subjective: Feels well after BAL 07/29. Back to 10 lpm oxymizer Objective: Vital Signs Temp Pulse Resp BP Pulse Ox 37.1 C 93 20 156/84 H 94 07/30/17 12:00 07/30/17 12:00 07/30/17 12:00 07/30/17 12:20 07/30/17 12:00 Microbiology 07/29/17 07:30 Gram Stain - Final Other - Aspirate 07/29/17 07:30 Gram Stain - Final Lung - Bronchial Washings 07/29/17 07:30 Mycobacterial Smear (NIKOLAS) - Final Other - Aspirate 07/29/17 07:30 Mycobacterial Smear (NIKOLAS) - Final Other - Aspirate Laboratory Results 07/30/17 05:27 07/30/17 05:27 07/29/17 07/30/17 07/31/17 05:59 05:59 05:59 Intake Total 2800 3500 Output Total 1400 500 Balance 1400 3000 Physical Exam - Physical Exam General Appearance: WD/WN, alert, no apparent distress, obese EENT: PERRL/EOMI Neck: supple Respiratory: decreased breath sounds, crackles, No respiratory distress, No accessory muscle use Cardiac/Chest: regular rate, rhythm, No edema Abdomen: non-tender, soft, No distended Skin: normal color, warm/dry, No cyanosis Lymphatic: no adenopathy Extremities: No pedal edema Neuro/Psych: alert, normal mood/affect, oriented x 3 ICD10 Worksheet Patient Problems: Problems Problem Status Onset Hypoxemia Acute Interstitial lung disease Acute Anxiety Active Back pain Acute ESBL (extended spectrum beta-lactamase) producing bacteria infection Acute ~ Shortness of breath Acute Strain of right hip Acute
[2017-07-30] MEDS: PARoxetine HCL 20 MG TAB PO SCH (14:21)
[2017-07-30] MEDS: traZODone 50 MG TAB PO SCH (20:14)
[2017-07-30] MEDS: ALPRAZolam 1 MG TAB PO PRN (22:22)
[2017-07-31] MEDS: IPRATROPIUM/ALBUTEROL 3 ML DEYVIAL IH SCH ×4 (04:59→21:06)
[2017-07-31] MEDS: ASPIRIN EC 81 MG TAB PO SCH (08:21)
[2017-07-31] MEDS: MYCOPHENOLATE MOFETIL 250 MG CAP PO SCH ×2 (08:21→20:35)
[2017-07-31] MEDS: OMEGA-3 FATTY ACIDS 1,000 MG CAP PO SCH (08:22)
[2017-07-31] MEDS: CALCIUM CARBONATE 500 MG TAB PO SCH (08:22)
[2017-07-31] MEDS: guaiFENesin 600 MG TAB.ER PO SCH ×2 (08:22→20:35)
[2017-07-31] MEDS: CHOLECALCIFEROL VIT D3 1,000 UNITS TAB PO SCH (08:22)
[2017-07-31] MEDS: ENOXAPARIN 40 MG/0.4 ML SYR SC SCH (08:22)
[2017-07-31] MEDS: lamoTRIgine 100 MG TAB PO SCH (08:22)
[2017-07-31] MEDS: MULTIVITAMINS 1 EACH TAB PO SCH (08:22)
[2017-07-31] MEDS: predniSONE 20 MG TAB PO SCH (08:22)
--- NOTE | 2017-07-31 11:02 | HOSPPROG ---
Hospitalist Progress Note Assessment/Plan: 77-year-old female with acute on chronic hypoxic respiratory failure in the setting of progressive interstitial lung disease Acute on chronic hypoxic respiratory failure - known chronic interstitial lung disease with recent decline. Worsening appearance on repeat CT. Discussed with Pulm. Remains on 10LPM high flow. Resp viral panel neg. D dimer neg x2. BNP 240. Repeat CXR yest with worsening appearance, could be some fluid from bronch contributing. Overall stable today. -PCP, cytology, fungal, bacterial, cultures from BAL pending -cont pred 40, cellcept 1000 bid, high flow o2 Chronic steroid dependency with chronic immunosuppression. Patient is chronically on prednisone as well as CellCept Chronic benzodiazepine dependency. Patient usually take xanax twice daily at home, now q8h prn due to increased stressors Hypercalcemia. Serum Ca on the rise, up to 11.8. Unclear etiology. PTH low normal. She is asymptomatic. -send Vit D and PTHrP (?underlying malignancy) -start IVF's and cont to follow -consider bone scan and/or further malignancy workup Diet. Regular Prophylaxis. High risk patient, Lovenox 40 Code. DNR. Disposition. Cont inpt due to ongoing need for high flow O2 Subjective: Pt about the same. Ambulating in halls without significant distress. +SOB and cough persists. No fevers. No CP. Objective: Vital Signs Temp Pulse Resp BP Pulse Ox 36.6 C 90 16 146/86 H 86 L 07/31/17 07:31 07/31/17 07:31 07/31/17 07:31 07/31/17 07:31 07/31/17 07:31 Microbiology 07/29/17 07:30 Gram Stain - Final Lung - Bronchial Washings 07/29/17 07:30 Gram Stain - Final Other - Aspirate Laboratory Results 07/30/17 05:27 07/31/17 04:56 07/30/17 07/31/17 08/01/17 05:59 05:59 05:59 Intake Total 3500 275 Output Total 500 Balance 3000 275 - Physical Exam Constitutional: no apparent distress Eyes: PERRL Ears, Nose, Mouth, Throat: moist mucous membranes Cardiovascular: regular rate and rhythym Respiratory: no respiratory distress, inspiratory crackles Gastrointestinal: normoactive bowel sounds, soft, non-tender abdomen Skin: warm Musculoskeletal: full muscle strength Neurologic: AAOx3 Psychiatric: interacting appropriately ICD10 Worksheet Patient Problems: Problems Problem Status Onset Hypoxemia Acute Interstitial lung disease Acute Anxiety Active Back pain Acute ESBL (extended spectrum beta-lactamase) producing bacteria infection Acute ~ Shortness of breath Acute Strain of right hip Acute
[2017-07-31] MEDS: buPROPion XL 150 MG TAB PO SCH (11:56)
[2017-07-31] MEDS: LISINOPRIL 10 MG TAB PO SCH (11:57)
[2017-07-31] MEDS: ALPRAZolam 1 MG TAB PO PRN ×2 (11:58→20:39)
--- NOTE | 2017-07-31 14:41 | PDINTPN ---
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 She remained stable, including in 03/2017, when she had urgent cervical spine surgery 2/2 intractable pain, but had no reported pulmonary issues. She was OK until 07/08/17 when she developed increasing dyspnea and increased O2 needs and was admitted to [facility]. A CTA showed worsening ILD while other labs were unremarkable including WBC and BNP. Her oxygen requirements at [place] were only 3 lpm, but she said she never really felt better. She was seen by Dr. Piedra at [place] 07/16/17 and reportedly was better on a new O2 requirement, with some confusion about her appropriate medication dosages (dc'd on pred 40 bid, MMF 1000 bid; arrived on MMF 500 bid). She was told to increase MMF to 1000 qam, 500 qpm, and continue prednisone, and Bactrim PCP prophylaxis was started. However, she called EMS 07/24/17 with similar complaints as last admission- SOB and increased O2 needs. Once admitted she was given 10-12 lpm O2 by oxymask as well as prednisone 40 bid and MF 1000 bid. Procalcitonin was 0.06 , making bacterial infection very unlikely, and BNP was 264. An echo showed no evidence of RV failure (no TR and normal RV function) and an EF of 67%. She was also initially given lasix 40 Iv bid. * ILD and Hypoxia with acute on chronic disease. The etiology is uncertain to me and may represent an ongoing process related to her previous admission- eg worsening ILD in the setting of variable doses of prednisone and MMF. However, HRCT compared to 07/08/17, looks substantially worse in terms of diffuse reticular infiltrates without predominance of region and no pleural effusion. Both CHF and bacterial PNA seem unlikely, so diuretics were stopped 07/26 and there are no current antibiotics. Her current prednisone is at 40 mg daily and MMF at 1000 BID. Bronch results negative to date. * Hypercalcemia: Has developed this admission. ? cause. Vit D level pending. Plan: Continue current immunosuppression regimen of Mycophenolate 1g BID and prednisone 40 daily. IVF for hypercalcemia while evaluation pending. Will check ARTHUR level. Subjective: Feels about the same. Dyspneic/hypoxemic wit minimal activity. Persistent cough with scant sputum. Objective: Vital Signs Temp Pulse Resp BP Pulse Ox 36.9 C 88 18 148/85 H 94 07/31/17 11:34 07/31/17 11:34 07/31/17 11:34 07/31/17 11:57 07/31/17 11:34 Microbiology 07/29/17 07:30 Gram Stain - Final Lung - Bronchial Washings 07/29/17 07:30 Gram Stain - Final Other - Aspirate Laboratory Results 07/30/17 05:27 07/31/17 04:56 07/30/17 07/31/17 08/01/17 05:59 05:59 05:59 Intake Total 3500 275 Output Total 500 Balance 3000 275 Bronch stains/cultures negative to date. Physical Exam - Physical Exam General Appearance: alert, no apparent distress EENT: normal ENT inspection Neck: normal inspection Respiratory: crackles Cardiac/Chest: regular rate, rhythm, No edema Abdomen: normal bowel sounds, non-tender Skin: normal color, warm/dry Extremities: normal inspection Neuro/Psych: alert, normal mood/affect, oriented x 3, No motor weakness ICD10 Worksheet Patient Problems: Problems Problem Status Onset Hypoxemia Acute Interstitial lung disease Acute Anxiety Active Back pain Acute ESBL (extended spectrum beta-lactamase) producing bacteria infection Acute ~ Shortness of breath Acute Strain of right hip Acute
[2017-07-31] MEDS: PARoxetine HCL 20 MG TAB PO SCH (15:14)
[2017-07-31] MEDS: NS 1,000 ML IV SCH (18:52)
[2017-07-31] MEDS: traZODone 50 MG TAB PO SCH (20:35)
[2017-07-31] MEDS: HYDROCODONE/APAP 5/325 TAB PO PRN (23:49)
[2017-08-01] MEDS: NS 1,000 ML IV SCH (05:50)
[2017-08-01] MEDS: IPRATROPIUM/ALBUTEROL 3 ML DEYVIAL IH SCH ×4 (06:15→21:09)
[2017-08-01] MEDS: lamoTRIgine 100 MG TAB PO SCH (08:34)
[2017-08-01] MEDS: OMEGA-3 FATTY ACIDS 1,000 MG CAP PO SCH (08:34)
[2017-08-01] MEDS: guaiFENesin 600 MG TAB.ER PO SCH ×2 (08:34→20:02)
[2017-08-01] MEDS: CHOLECALCIFEROL VIT D3 1,000 UNITS TAB PO SCH (08:34)
[2017-08-01] MEDS: MULTIVITAMINS 1 EACH TAB PO SCH (08:34)
[2017-08-01] MEDS: predniSONE 20 MG TAB PO SCH (08:34)
[2017-08-01] MEDS: ASPIRIN EC 81 MG TAB PO SCH (08:34)
[2017-08-01] MEDS: MYCOPHENOLATE MOFETIL 250 MG CAP PO SCH ×2 (08:35→20:02)
[2017-08-01] MEDS: ENOXAPARIN 40 MG/0.4 ML SYR SC SCH (08:35)
--- NOTE | 2017-08-01 09:54 | HOSPPROG ---
Hospitalist Progress Note Assessment/Plan: 77-year-old female with acute on chronic hypoxic respiratory failure in the setting of progressive interstitial lung disease Acute on chronic hypoxic respiratory failure - 10 LPM -> 8 LPM. Chronic interstitial lung disease followed by Dr. John Piedra at [facility], with recent decline. Worsening appearance on repeat CT. Discussed with Pulm. RVP neg. D dimer neg x2. BNP 240. PCT neg. Aspergillus Ag neg. -F/U PCP, cytology, fungal, bacterial, cultures from BAL -cont pred 40, cellcept 1000 bid -wean O2 as able ERICK - Cr up to 1.4 from 0.8 despite IVF's overnight. ?from hypercalcemia. -send Urine Na and urine Cr to calculate FeNa (still not done as of 1599) -send ua to look for sediment -hold ARTHUR for now -consider wegeners with renal and pulm process- send ANCA panel, PREET -cont IVF's, hopefully will improve with serum Ca decreasing Hypercalcemia - Serum Ca on the rise, up to 11.8, but down to 11 this am with IVFs. PTH low normal. Vit D undetectable. -down-trending now, cont IVF's, follow -PTHrP pending -consider bone scan and/or further malignancy workup if persists elevated Chronic steroid dependency with chronic immunosuppression. Patient is chronically on prednisone as well as CellCept Chronic benzodiazepine dependency. Patient usually take xanax twice daily at home, now q8h prn due to increased stressors Diet. Regular Prophylaxis. High risk patient, Lovenox 40 Code. DNR. Disposition. Cont inpt due to ongoing need for high flow O2 Subjective: Pt feels a little better today. A bit less SOB. Cough improved. Objective: Vital Signs Temp Pulse Resp BP Pulse Ox 36.8 C 91 16 136/83 H 91 L 08/01/17 07:42 08/01/17 07:42 08/01/17 07:42 08/01/17 07:42 08/01/17 07:42 Microbiology 07/29/17 07:30 Gram Stain - Final Lung - Bronchial Washings Bronchial Washings Culture - Final 07/29/17 07:30 Gram Stain - Final Other - Aspirate Bronchial Washings Culture - Final Laboratory Results 07/30/17 05:27 08/01/17 05:05 07/31/17 08/01/17 08/02/17 05:59 05:59 05:59 Intake Total 275 2290 Balance 275 2290 ICD10 Worksheet Patient Problems: Problems Problem Status Onset Hypoxemia Acute Interstitial lung disease Acute Anxiety Active Back pain Acute ESBL (extended spectrum beta-lactamase) producing bacteria infection Acute ~ Shortness of breath Acute Strain of right hip Acute
--- NOTE | 2017-08-01 12:15 | PDINTPN ---
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 She remained stable, including in 03/2017, when she had urgent cervical spine surgery 2/2 intractable pain, but had no reported pulmonary issues. She was OK until 07/08/17 when she developed increasing dyspnea and increased O2 needs and was admitted to [facility]. A CTA showed worsening ILD while other labs were unremarkable including WBC and BNP. Her oxygen requirements at [place] were only 3 lpm, but she said she never really felt better. She was seen by Dr. Piedra at [place] 07/16/17 and reportedly was better on a new O2 requirement, with some confusion about her appropriate medication dosages (dc'd on pred 40 bid, MMF 1000 bid; arrived on MMF 500 bid). She was told to increase MMF to 1000 qam, 500 qpm, and continue prednisone, and Bactrim PCP prophylaxis was started. However, she called EMS 07/24/17 with similar complaints as last admission- SOB and increased O2 needs. Once admitted she was given 10-12 lpm O2 by oxymask as well as prednisone 40 bid and MF 1000 bid. Procalcitonin was 0.06 , making bacterial infection very unlikely, and BNP was 264. An echo showed no evidence of RV failure (no TR and normal RV function) and an EF of 67%. She was also initially given lasix 40 Iv bid. * ILD and Hypoxia with acute on chronic disease. The etiology is uncertain to me and may represent an ongoing process related to her previous admission- eg worsening ILD in the setting of variable doses of prednisone and MMF. However, HRCT compared to 07/08/17, looks substantially worse in terms of diffuse reticular infiltrates without predominance of region and no pleural effusion. Both CHF and bacterial PNA seem unlikely, so diuretics were stopped 07/26 and there are no current antibiotics. Her current prednisone is at 40 mg daily and MMF at 1000 BID. Bronch results negative to date. * Hypercalcemia: Has developed this admission. ? cause. Improved with IVF. Vit D level, ARTHUR pending. * ERICK: Cr up. ? due to hypercalcemia. Plan: Continue current immunosuppression regimen of Mycophenolate 1g BID and prednisone 40 daily. Wean oxygen as tolerated. IVF for hypercalcemia while evaluation pending. Follow Cr. 08/01/17 12:14 08/01/17 12:14 Subjective: Feels breathing is a bit better. Less dyspneic with walking. Cough is slightly better. Objective: Vital Signs Temp Pulse Resp BP Pulse Ox 37.0 C 102 H 20 159/93 H 92 08/01/17 11:40 08/01/17 11:40 08/01/17 11:40 08/01/17 11:40 08/01/17 11:40 Microbiology 07/29/17 07:30 Gram Stain - Final Lung - Bronchial Washings Bronchial Washings Culture - Final 07/29/17 07:30 Gram Stain - Final Other - Aspirate Bronchial Washings Culture - Final Laboratory Results 07/30/17 05:27 08/01/17 05:05 07/31/17 08/01/17 08/02/17 05:59 05:59 05:59 Intake Total 275 2290 Balance 275 2290 Physical Exam - Physical Exam General Appearance: alert, no apparent distress EENT: normal ENT inspection Neck: normal inspection Respiratory: crackles Cardiac/Chest: regular rate, rhythm, No edema Abdomen: normal bowel sounds, non-tender Skin: normal color, warm/dry Extremities: normal inspection Neuro/Psych: alert, normal mood/affect, oriented x 3 ICD10 Worksheet Patient Problems: Problems Problem Status Onset Hypoxemia Acute Interstitial lung disease Acute Anxiety Active Back pain Acute ESBL (extended spectrum beta-lactamase) producing bacteria infection Acute ~ Shortness of breath Acute Strain of right hip Acute
[2017-08-01] MEDS: buPROPion XL 150 MG TAB PO SCH (12:44)
[2017-08-01] MEDS: PARoxetine HCL 20 MG TAB PO SCH (16:20)
--- NOTE | 2017-08-01 18:12 | ASMTCMCOM ---
CM Note CM Note Notes: Reviewed chart regarding discharge plan of care, pt's progress. Spoke wNga Jackson RN - per Renetta, pt's oxygen needs have decreased from 10L oxymask down to 8L today. Pt wears 3L oxygen at her baseline. Plan remains for pt to discharge home w/ [facility] (pt previously open, updates sent 07/29/17) and [facility] w/ 24 hr services (also previously open), when medically stable. Discharge date remains unclear. CM will cont to follow. Current Discharge Plan: Home w/ [facility] and [facility] (24 hr services) Date Signed: 08/01/2017 06:12 PM Electronically Signed By:Jeri Regalado RN
[2017-08-01] MEDS: traZODone 50 MG TAB PO SCH (22:27)
[2017-08-01] MEDS: ALPRAZolam 1 MG TAB PO PRN (22:27)
[2017-08-02] MEDS: HYDROCODONE/APAP 5/325 TAB PO PRN (03:18)
[2017-08-02] MEDS: IPRATROPIUM/ALBUTEROL 3 ML DEYVIAL IH SCH ×4 (06:16→21:56)
[2017-08-02] MEDS: OMEGA-3 FATTY ACIDS 1,000 MG CAP PO SCH (07:58)
[2017-08-02] MEDS: MYCOPHENOLATE MOFETIL 250 MG CAP PO SCH ×2 (07:58→20:42)
[2017-08-02] MEDS: CHOLECALCIFEROL VIT D3 1,000 UNITS TAB PO SCH (07:59)
[2017-08-02] MEDS: MULTIVITAMINS 1 EACH TAB PO SCH (07:59)
[2017-08-02] MEDS: ASPIRIN EC 81 MG TAB PO SCH (07:59)
[2017-08-02] MEDS: guaiFENesin 600 MG TAB.ER PO SCH ×2 (07:59→20:42)
[2017-08-02] MEDS: predniSONE 20 MG TAB PO SCH (07:59)
[2017-08-02] MEDS: lamoTRIgine 100 MG TAB PO SCH (07:59)
[2017-08-02] MEDS: ENOXAPARIN 30 MG/0.3 ML SYR SC SCH (08:03)
[2017-08-02] MEDS: buPROPion XL 150 MG TAB PO SCH (13:26)
[2017-08-02] MEDS: BENZONATATE 100 MG CAP PO PRN (13:32)
[2017-08-02] MEDS: PARoxetine HCL 20 MG TAB PO SCH (15:00)
--- NOTE | 2017-08-02 18:47 | HOSPPROG ---
Hospitalist Progress Note Assessment/Plan: Assessment: 77-year-old female presents with acute on chronic hypoxic respiratory failure in the setting of interstitial lung disease Plan: 1. Acute on chronic hypoxic respiratory failure. Remains on 7LPM high flow today at rest, 9LPM w/ activity, ongoing SOB w/ ambulation, ILD likely slowly improving on pred 40 and MMF 1g bid -PJP cx pending -d/w Dr. Wilkinson, he recommends arranging high flow home concentrator w/ RT -counseled patient and daughter that we will collaborate tomorrow on whether we can arrange home o2 at safe flow rate, and have case mgmt discuss w/ her any home care services that would facilitate a safe DC in the next 24-48hrs 2. Interstitial lung disease. Likely acute worsening on CT 3. Chronic steroid dependency with chronic immunosuppression. Patient is chronically on prednisone as well as CellCept 4. Chronic benzodiazepine dependency. Patient usually take xanax twice daily at home, requesting increased freq given stress of current condition, agree that this is safe at q6hrs PRN 5. Chest pain. Likely 2/2 cough, cont to use anti-tussives as needed 6. Hypercalcemia. Acute, unclear cause, vitamin D deficient but PTH normal -normalized w/ IVF and resolution of ERICK -PTHrP pending, ARTHUR pending 7. ERICK. 2/2 hypovolemia in setting of hypercalcemia and osmotic diuresis, resolved Diet. Regular Prophylaxis. High risk patient, Lovenox 40 Code. Do not resuscitate per patient Disposition. Anticipated discharge is uncertain this time Subjective: chest discomfort w/ cough and breathlessness w/ any activity Objective: Vital Signs Temp Pulse Resp BP Pulse Ox 37.1 C 95 18 153/89 H 92 08/02/17 16:00 08/02/17 16:25 08/02/17 16:25 08/02/17 16:00 08/02/17 16:25 Laboratory Results 07/30/17 05:27 08/02/17 04:30 08/01/17 08/02/17 08/03/17 05:59 05:59 05:59 Intake Total 2290 1615 1240 Output Total 1000 2500 Balance 2290 615 -1260 - Time Spent With Patient Time Spent with Patient: greater than 35 minutes Time Spent with Patient: Greater than 35 minutes spent on this patients care, greater than 50% of time spent counseling, educating, and coordinating care regarding the above mentioned plan. - Physical Exam Constitutional: no apparent distress, chronically ill appearing, uncomfortable Cardiovascular: tachycardia, No systolic murmur, No edema Respiratory: inspiratory crackles (bilat L>R), No reduced air movement, No expiratory wheeze, No bronchial breath sounds Gastrointestinal: normoactive bowel sounds, soft, non-tender abdomen, no palpable masses Neurologic: AAOx3 Psychiatric: interacting appropriately, not encephalopathic, thought process linear, anxious, No agitated ICD10 Worksheet Patient Problems: Problems Problem Status Onset Back pain Acute Shortness of breath Acute Interstitial lung disease Acute Hypoxemia Acute ESBL (extended spectrum beta-lactamase) producing bacteria infection Acute ~ Anxiety Active Strain of right hip Acute
[2017-08-02] MEDS: traZODone 50 MG TAB PO SCH (20:42)
[2017-08-02] MEDS: ALPRAZolam 1 MG TAB PO PRN (22:05)
[2017-08-03] MEDS: IPRATROPIUM/ALBUTEROL 3 ML DEYVIAL IH SCH ×3 (05:33→18:21)
[2017-08-03] MEDS: ASPIRIN EC 81 MG TAB PO SCH (10:00)
[2017-08-03] MEDS: ENOXAPARIN 30 MG/0.3 ML SYR SC SCH (10:00)
[2017-08-03] MEDS: MYCOPHENOLATE MOFETIL 250 MG CAP PO SCH ×2 (10:00→21:42)
[2017-08-03] MEDS: OMEGA-3 FATTY ACIDS 1,000 MG CAP PO SCH (10:00)
[2017-08-03] MEDS: CHOLECALCIFEROL VIT D3 1,000 UNITS TAB PO SCH (10:00)
[2017-08-03] MEDS: lamoTRIgine 100 MG TAB PO SCH (10:01)
[2017-08-03] MEDS: guaiFENesin 600 MG TAB.ER PO SCH ×2 (10:01→21:42)
[2017-08-03] MEDS: MULTIVITAMINS 1 EACH TAB PO SCH (10:01)
[2017-08-03] MEDS: predniSONE 20 MG TAB PO SCH (10:01)
[2017-08-03] MEDS: buPROPion XL 150 MG TAB PO SCH (12:15)
--- NOTE | 2017-08-03 15:57 | ASMTCMCOM ---
CM Note CM Note Notes: CM spoke w/ Dr. Hatfield regarding d/c POC. Pts o2 level remain high. DC date unclear at this time. Pt will most likely d/c with [facility] - 24hr supervision. Updates sent to [facility]. CM to follow. Plan: [facility] Date Signed: 08/03/2017 03:57 PM Electronically Signed By:FROY Hill
[2017-08-03] MEDS: PARoxetine HCL 20 MG TAB PO SCH (17:17)
--- NOTE | 2017-08-03 19:51 | PDHOMEO2F ---
Home Oxygen Face to Face Home Orders: I certify that a physician or a nurse practitioner or physician's zoning assistant has had a [id number] encounter with this patient on the date of this order due to the diagnosis listed, which relates to the primary reason the patient requires home oxygen. Alternative treatments have been tried, or considered, and deemed ineffective. It is anticipated that supplemental oxygen will result in improvement with treatment. Home oxygen qualifying diagnosis: Chronic hypoxic respiratory failure Home oxygen secondary diagnosis: Interstitial Lung Disease SpO2 on room air (%): 50 Frequency of home oxygen needed: continuous Home oxygen liters per minute: 5 at rest, 7 with activity Home oxygen delivery device: other (high flow concentrator) Concentrator: Yes E-tanks for mobility and back up: Yes If ordering portable O2, is the patient mobile in the home?: Yes I certify that, based on these findings, the home oxygen is medically necessary for this patient for the following length of time. Length of time home oxygen needed: 99 years Home Oxygen Comment: high flow 5LPM at rest, high flow 7LPM with activity
--- NOTE | 2017-08-03 19:55 | HOSPPROG ---
Hospitalist Progress Note Assessment/Plan: Assessment: 77-year-old female presents with acute on chronic hypoxic respiratory failure in the setting of interstitial lung disease Plan: 1. Acute on chronic hypoxic respiratory failure. Remains on 5LPM high flow today at rest, 7LPM w/ activity, ongoing SOB w/ ambulation, ILD likely slowly improving on pred 40 and MMF 1g bid -PJP cx pending -d/w Dr. Wilkinson, he recommends arranging high flow home concentrator w/ RT (d/w RT today, [employer] can provide this service, home [id number]/Rx completed) -case mgmt to discuss home care options w/ patient in AM 2. Interstitial lung disease. Likely acute worsening on CT, PREET normal -patient will follow-up with Dr. Wilkinson locally, Dr. Morse at [facility] 3. Chronic steroid dependency with chronic immunosuppression. Patient is chronically on prednisone as well as CellCept 4. Chronic benzodiazepine dependency. Patient usually take xanax twice daily at home, requesting increased freq given stress of current condition, agree that this is safe at q6hrs PRN 5. Chest pain. Likely 2/2 cough, cont to use anti-tussives as needed 6. Hypercalcemia. Acute, unclear cause, vitamin D deficient but PTH normal -normalized w/ IVF and resolution of ERICK -PTHrP pending, ARTHUR pending 7. ERICK. 2/2 hypovolemia in setting of hypercalcemia and osmotic diuresis, resolved, cont to monitor Diet. Regular Prophylaxis. High risk patient, Lovenox 40 Code. Do not resuscitate per patient Disposition. Anticipated discharge 08/04, pending stability of above Subjective: SOB w/ activity, feeling better though Objective: Vital Signs Temp Pulse Resp BP Pulse Ox 37.2 C 102 H 18 139/76 H 92 08/03/17 19:44 08/03/17 19:44 08/03/17 19:44 08/03/17 19:44 08/03/17 19:44 Microbiology 07/29/17 17:18 Blood Culture - Final Blood 07/29/17 14:20 Blood Culture - Final Blood 07/29/17 07:30 Mycobacterial Smear (NKIOLAS) - Final Other - Aspirate 07/29/17 07:30 Mycobacterial Smear (NIKOLAS) - Final Other - Aspirate Laboratory Results 07/30/17 05:27 08/03/17 05:27 08/02/17 08/03/17 08/04/17 05:59 05:59 05:59 Intake Total 1615 1890 850 Output Total 1000 3800 700 Balance 615 -1910 150 - Pending Discharge Pending Discharge Within 24 Hours: Yes Pending Discharge Date: 08/04/17 Pending Discharge Time: 11:00 - Physical Exam Constitutional: no apparent distress, not in pain, chronically ill appearing, uncomfortable Cardiovascular: no murmur, rub, or gallop, tachycardia, No irregularly irregular , No edema Respiratory: inspiratory crackles (posterior bilat), No reduced air movement, No expiratory wheeze, No bronchial breath sounds Gastrointestinal: normoactive bowel sounds, soft, non-tender abdomen, no palpable masses, No distension Neurologic: AAOx3, No facial droop Psychiatric: interacting appropriately, not anxious, not encephalopathic, thought process linear ICD10 Worksheet Patient Problems: Problems Problem Status Onset Back pain Acute Shortness of breath Acute Interstitial lung disease Acute Hypoxemia Acute ESBL (extended spectrum beta-lactamase) producing bacteria infection Acute ~ Anxiety Active Strain of right hip Acute
[2017-08-03] MEDS: traZODone 50 MG TAB PO SCH (21:42)
[2017-08-03] MEDS: ALPRAZolam 1 MG TAB PO PRN (21:42)
[2017-08-03] MEDS ORDERED: busPIRone 5 MG TAB PO PRN (23:54)
[2017-08-03] MEDS ORDERED: MELATONIN 3 MG TAB PO PRN (23:55)
[2017-08-04] MEDS: IPRATROPIUM/ALBUTEROL 3 ML DEYVIAL IH SCH ×3 (03:43→12:17)
[2017-08-04] MEDS: ENOXAPARIN 30 MG/0.3 ML SYR SC SCH (09:46)
[2017-08-04] MEDS: guaiFENesin 600 MG TAB.ER PO SCH (09:47)
[2017-08-04] MEDS: ASPIRIN EC 81 MG TAB PO SCH (09:47)
[2017-08-04] MEDS: MYCOPHENOLATE MOFETIL 250 MG CAP PO SCH (09:47)
[2017-08-04] MEDS: OMEGA-3 FATTY ACIDS 1,000 MG CAP PO SCH (09:47)
[2017-08-04] MEDS: MULTIVITAMINS 1 EACH TAB PO SCH (09:47)
[2017-08-04] MEDS: predniSONE 20 MG TAB PO SCH (09:47)
[2017-08-04] MEDS: lamoTRIgine 100 MG TAB PO SCH (09:48)
[2017-08-04] MEDS: CHOLECALCIFEROL VIT D3 1,000 UNITS TAB PO SCH (09:49)
--- NOTE | 2017-08-04 09:54 | PDINTPN ---
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 She remained stable, including in 03/2017, when she had urgent cervical spine surgery 2/2 intractable pain, but had no reported pulmonary issues. She was OK until 07/08/17 when she developed increasing dyspnea and increased O2 needs and was admitted to [facility]. A CTA showed worsening ILD while other labs were unremarkable including WBC and BNP. Her oxygen requirements at [place] were only 3 lpm, but she said she never really felt better. She was seen by Dr. Piedra at [place] 07/16/17 and reportedly was better on a new O2 requirement, with some confusion about her appropriate medication dosages (dc'd on pred 40 bid, MMF 1000 bid; arrived on MMF 500 bid). She was told to increase MMF to 1000 qam, 500 qpm, and continue prednisone, and Bactrim PCP prophylaxis was started. However, she called EMS 07/24/17 with similar complaints as last admission- SOB and increased O2 needs. Once admitted she was given 10-12 lpm O2 by oxymask as well as prednisone 40 bid and MF 1000 bid. Procalcitonin was 0.06 , making bacterial infection very unlikely, and BNP was 264. An echo showed no evidence of RV failure (no TR and normal RV function) and an EF of 67%. She was also initially given lasix 40 Iv bid. * ILD and Hypoxia with acute on chronic disease. The etiology is uncertain to me and may represent an ongoing process related to her previous admission- eg worsening ILD in the setting of variable doses of prednisone and MMF. However, HRCT 07/27/17 compared to 07/08/17, looks substantially worse in terms of diffuse reticular infiltrates without predominance of region and no pleural effusion. Both CHF and bacterial PNA seem unlikely, so diuretics were stopped 07/26 and there are no current antibiotics. CXR last niht looks quite a bit better. Her oxygen needs have fallen overthe last 72 hours. Her current prednisone is at 40 mg daily and MMF at 1000 BID. Bronch results negative to date. * Hypercalcemia: Has developed this admission. ? cause. Improved with IVF. Vit D level, ARTHUR OK * ERICK: Cr up. ? due to hypercalcemia. Plan: Should be OK to discharge. Continue current immunosuppression regimen of Mycophenolate 1g BID and prednisone 40 daily. Will walk this morning on 5 liters /minute. If sats OK (>87) and not too symptomatic, could go home with current concentrator. If she is hypoxemic/symptomatic on 5 liters with walking, will order a higher-flow concentrator, which she will hopefully only need for a week or so. Follow-up with me in 1-2 weeks. Will check a Ca level at that time. 08/04/17 09:54 Subjective: Breathing feels a bit better compared to admission, little change compared to last day or two. Objective: Vital Signs Temp Pulse Resp BP Pulse Ox 36.7 C 85 21 H 136/86 H 91 L 08/04/17 07:22 08/04/17 07:22 08/04/17 07:22 08/04/17 07:22 08/04/17 07:22 Microbiology 07/29/17 17:18 Blood Culture - Final Blood 07/29/17 14:20 Blood Culture - Final Blood 07/29/17 07:30 Mycobacterial Smear (NIKOLAS) - Final Other - Aspirate 07/29/17 07:30 Mycobacterial Smear (NIKOLAS) - Final Other - Aspirate Laboratory Results 07/30/17 05:27 08/04/17 05:07 08/03/17 08/04/17 08/05/17 05:59 05:59 05:59 Intake Total 1890 850 Output Total 3800 1100 Balance -1910 -250 CXR: Markedly improved Left lung infiltrate. Persistent interstitial infiltrates. Images reviewed by me. Laboratory Tests 07/31/17 08/01/17 04:56 05:05 Angiotensin Convert Enz <5 L 25-OH Vitamin D Total < 12.8 L Laboratory Tests 08/04/17 05:07 Calcium 9.6 Physical Exam - Physical Exam General Appearance: alert, no apparent distress EENT: normal ENT inspection Neck: normal inspection Respiratory: crackles Cardiac/Chest: regular rate, rhythm, No edema Abdomen: normal bowel sounds, non-tender Skin: normal color, warm/dry Extremities: normal inspection Neuro/Psych: alert, normal mood/affect, oriented x 3 ICD10 Worksheet Patient Problems: Problems Problem Status Onset Hypoxemia Acute Interstitial lung disease Acute Anxiety Active Back pain Acute ESBL (extended spectrum beta-lactamase) producing bacteria infection Acute ~ Shortness of breath Acute Strain of right hip Acute
--- NOTE | 2017-08-04 12:11 | ASMTLACE ---
CALE Length of stay for Answers: 7-13 days current admission Acuity / Level of Answers: Yes Care: Did the patient have an inpatient admission? Comorbidities - select Answers: Other Notes: Interstitial lung disea se all that apply # of Emergency department Answers: 3-4 visits in the last 6 months Social determinants Answers: Mental health diagnosis (anxiety, depression, pers onality disorders, etc.) Score: 15 Date Signed: 08/04/2017 12:10 PM Electronically Signed By:Trina Sotelo RN
--- NOTE | 2017-08-04 12:20 | ASMTCMCOM ---
CM Note CM Note Notes: Spoke w/pt who had concerns that CM had not come to speak with her. Pt will likely discharge today with [facility], [facility] that provides 24hr care and [facility]. Pt asked CM if insurance can pay for homecare, CM advised pt that Medicare will cover skilled homecare but not [facility] which is considered "non skilled". Pt verbalizes understanding. Dtr will come to pick pt up, [facility] notified, MOW set up, and patient to call [facility]. Date Signed: 08/04/2017 12:20 PM Electronically Signed By:Trina Sotelo RN
[2017-08-04] MEDS: buPROPion XL 150 MG TAB PO SCH (12:33)
[2017-08-04 12:39] VITALS: RESP 26
[2017-08-04 13:36] VITALS: BP 152/78; PULSE 101; TEMP 98.8; O2SAT 91
--- NOTE | 2017-08-04 14:22 | PDIAF ---
- Diagnosis Diagnosis: acute resp failure, interstitial lung disease Code Status: Do Not Resuscitate - Medication Management Discharge Medications: Medications to Continue on Transfer Cholecalciferol Vit D3 [Vitamin D3 (*)] 1,000 units PO DAILY 04/12/12 [Last Taken 07/07/17 09:00] Lisinopril [Zestril 10 mg (*)] 10 mg PO DAILY@12 04/12/12 [Last Taken 07/24/17] Multivitamins [Multivitamin (*)] 1 each PO DAILY 04/12/12 [Last Taken 07/07/17 09:00] ALPRAZolam [Xanax 1 MG (*)] 1 mg PO Q12H PRN 12/22/16 [Last Taken 07/24/17 13:00 ] PARoxetine HCL [Paxil 20mg (*)] 20 mg PO DAILY@15 12/22/16 [Last Taken 07/24/17] buPROPion XL [Wellbutrin 150mg XL] 150 mg PO DAILY@12 12/22/16 [Last Taken 07/24] lamoTRIgine [LamICTAL 100 MG (*)] 100 mg PO DAILY 02/19/17 [Last Taken 07/24/17] Aspirin EC [Aspirin EC 81 mg (*)] 81 mg PO DAILY 07/08/17 [Last Taken 07/07/17 09:00] Calcium Carbonate [Oyster Shell Calcium 500 mg (*)] 1,250 mg PO DAILY 07/08/17 [ Last Taken 07/07/17 09:00] [place]-3 Fatty Acids [Fish Oil 1000 mg (*)] 1,000 mg PO DAILY 07/08/17 [Last Taken 07/07/17 09:00] traZODone [traZODONE 50MG (*)] 50 mg PO HS 07/08/17 [Last Taken 07/23/17] Hydrocodone/Acetaminophen [Hydrocodone-Acetamin 5-325 mg] 1 each PO Q6 PRN 07/24 [Last Taken 07/23/17] Mycophenolate Mofetil [Cellcept] 1,000 mg PO BID 07/24/17 [Last Taken 07/24/17 08:00] amLODIPine BESYLATE [Norvasc 2.5 mg (*)] 2.5 mg PO DAILY #30 tab 08/04/17 [Last Taken Unknown] predniSONE 40 mg PO DAILY tablet 08/04/17 [Last Taken Unknown] Discharge Medications: Refer to the Discharge Home Medication list for PRN reason. - Orders Oxygen: concentrator Diet Recommendation: no restrictions on diet Diet Texture: Regular Texture Diet - Follow Up Care Current Providers and Referrals: Patient,NotPresent [Unknown] - As per Instructions
--- NOTE | 2017-08-04 14:26 | PDDCSUM ---
Discharge Summary Discharge Summary: DISCHARGE DIAGNOSES: -acute hypoxemic respiratory failure -severe deconditioning/gait instability/falls at home -acute kidney injury likely due to hypovolemia -hypercalcemic due to hypovolemia -chronic interstitial lung disease on immune suppression therapy CONSULTANTS: Dr. 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 She had some cough but we did not find any specific evidence of infection. Remarkably she was here recently and went home and somehow misunderstood the instructions for her mycophenolate and was only taking half the instructed dose of 1000 mg twice daily. Here we have increased her microphone it back to 1000 mg twice daily. She has had significant improvement over the last few days with decreased dyspnea, increased activity, decreased oxygen need. That being said she still significantly dyspneic on minor exertion on 5 L nasal cannula oxygen here the hallways she go slowly enough. At this time she has felt well for discharge home. Is recommended though that we get a better oxygen flow concentrator for her to use at home with activity. She will follow up with Dr. Miko Wilkinson in clinic within 2-4 weeks PENDING TEST RESULTS: Several serologic tests another test for infectious pathogens MEDICATION CHANGES: None FOLLOW-UP PLAN: Follow up with Dr. Miko Wilkinson in clinic Discharge to home with home care Will have her home oxygen company deliver a higher oxygen flow concentrator for use at home Greater than 35 minutes bedside and care coordination time today
--- NOTE | 2017-08-04 14:59 | PDIAF ---
- Diagnosis Diagnosis: acute resp failure, interstitial lung disease Code Status: Do Not Resuscitate - Medication Management Discharge Medications: Medications to Continue on Transfer Cholecalciferol Vit D3 [Vitamin D3 (*)] 1,000 units PO DAILY 04/12/12 [Last Taken 07/07/17 09:00] Lisinopril [Zestril 10 mg (*)] 10 mg PO DAILY@12 04/12/12 [Last Taken 07/24/17] Multivitamins [Multivitamin (*)] 1 each PO DAILY 04/12/12 [Last Taken 07/07/17 09:00] ALPRAZolam [Xanax 1 MG (*)] 1 mg PO Q12H PRN 12/22/16 [Last Taken 07/24/17 13:00 ] PARoxetine HCL [Paxil 20mg (*)] 20 mg PO DAILY@15 12/22/16 [Last Taken 07/24/17] buPROPion XL [Wellbutrin 150mg XL] 150 mg PO DAILY@12 12/22/16 [Last Taken 07/24] lamoTRIgine [LamICTAL 100 MG (*)] 100 mg PO DAILY 02/19/17 [Last Taken 07/24/17] Aspirin EC [Aspirin EC 81 mg (*)] 81 mg PO DAILY 07/08/17 [Last Taken 07/07/17 09:00] Calcium Carbonate [Oyster Shell Calcium 500 mg (*)] 1,250 mg PO DAILY 07/08/17 [ Last Taken 07/07/17 09:00] [place]-3 Fatty Acids [Fish Oil 1000 mg (*)] 1,000 mg PO DAILY 07/08/17 [Last Taken 07/07/17 09:00] traZODone [traZODONE 50MG (*)] 50 mg PO HS 07/08/17 [Last Taken 07/23/17] Hydrocodone/Acetaminophen [Hydrocodone-Acetamin 5-325 mg] 1 each PO Q6 PRN 07/24 [Last Taken 07/23/17] Mycophenolate Mofetil [Cellcept] 1,000 mg PO BID 07/24/17 [Last Taken 07/24/17 08:00] amLODIPine BESYLATE [Norvasc 2.5 mg (*)] 2.5 mg PO DAILY #30 tab 08/04/17 [Last Taken Unknown] predniSONE 40 mg PO DAILY tablet 08/04/17 [Last Taken Unknown] Discharge Medications: Refer to the Discharge Home Medication list for PRN reason. - Orders Services needed: Home Care, Registered Nurse, Certified Webbing Tacker, Physical Therapy, Occupational Therapy Home Care Face to Face: I certify that this patient was under my care and that I had the required [id number] encounter meeting the encounter requirements on the discharge day. My findings support the fact that the patient is homebound as defined in Home Care Face to Face Continued: CMS Chapter 7 Medicare Benefits Manual 30.1.1 , The condition of the patient is such that there exists a normal inability to leave home and consequently, leaving home would require a considerable and taxing effort. Oxygen: concentrator Diet Recommendation: no restrictions on diet Diet Texture: Regular Texture Diet - Follow Up Care Current Providers and Referrals: Patient,NotPresent [Unknown] - As per Instructions
[2017-08-04] MEDS: ACETAMINOPHEN 325 MG TAB PO PRN (15:10)
[2017-08-04] MEDS: PARoxetine HCL 20 MG TAB PO SCH (15:10)
--- NOTE | 2017-08-05 09:35 | ASDISCHSUM ---
Discharge Information Plan Status:Has needs-TBD Medically Cleared to Leave: Discharge Date:08/04/2017 04:37 PM D/C Disposition:Home Health Service ADT D/C Disposition:Home, Routine, Self-Care Projected Discharge Date:07/27/2017 11:00 AM Transportation at D/C:Family Discharge Delay Reason: Follow-Up Date:07/27/2017 11:00 AM Discharge Slot: Final Diagnosis: Placement Information Referral Type:*Home Health Care Services Referral ID:[id number] Provider Name:[facility] Address 1:[address] [facility] [address] Address 2: City:[place] Selection Factors: State:[place] Patient Contact Information Contact Name:EZ Relationship:Daughter Address:[address] [place] [address] City:[place] Alternate Phone: State/Zip Code:[place] [address] Email: Financial Information Financial Class:Medicare Primary Plan Desc:MEDICARE INPATIENT Primary Plan Number:[id number] Secondary Plan Desc:[facility] Secondary Plan Number:[id number] Assessment Information [facility] CM Progress Note CM Note CM Note Notes: Chart reviewed to assess dc needs. Patient just dc'd from hospital on 07/12 with [facility] and 24 hour care with [facility]. She is admitted with worsening hypoxia ith diagnosis of interstitial lung disease. She is currently on oxygen at 11 liters NC. Anticipate resumption of prior services at discharge. Will place referral to [facility]. to follow. Date Signed: 07/25/2017 03:03 PM Electronically Signed By:Maria A Kaur RN [facility] Length of stay for Answers: 7-13 days current admission Acuity / Level of Answers: Yes Care: Did the patient have an inpatient admission? Comorbidities - select Answers: Other Notes: Interstitial lung disea se all that apply # of Emergency department Answers: 3-4 visits in the last 6 months Social determinants Answers: Mental health diagnosis (anxiety, depression, pers onality disorders, etc.) Score: 15 Date Signed: 08/04/2017 12:10 PM Electronically Signed By:Trina Sotelo RN [facility] Progress Note CM Note CM Note Notes: CM spoke w/ Kathie regarding d/c POC. Pt will go to surgery tomorrow. Pt will most likely be transfer to the ICU afterwards. Pt is currently on 10L of o2 opposed to being at 3L of o2 at baseline. Pt is current w/ [facility] and 24hr care with [facility]. It is uncertain as to what type of needs pt will have after surgery. CM to follow. Plan: TBD; [facility] and 24hr care w/ [facility] Date Signed: 07/27/2017 04:27 PM Electronically Signed By:FROY Hill [facility] Progress Note CM Note CM Note Notes: Spoke w/lara GODINEZ date unclear, pt has high O2 needs. She is on10L oxymask, update sent to [facility]. DC Plan: [facility] HC + 24hr care w/[facility] Date Signed: 07/29/2017 05:35 PM Electronically Signed By:Trina Sotelo RN [facility] Progress Note CM Note CM Note Notes: Reviewed chart regarding discharge plan of care, pt's progress. Spoke w/ GRETCHEN Jackson - per Renetta, pt's oxygen needs have decreased from 10L oxymask down to 8L today. Pt wears 3L oxygen at her baseline. Plan remains for pt to discharge home w/ [facility] home care (pt previously open, updates sent 07/29/17) and [facility] w/ 24 hr services (also previously open), when medically stable. Discharge date remains unclear. CM will cont to follow. Current Discharge Plan: Home w/ [facility] and [facility] (24 hr services) Date Signed: 08/01/2017 06:12 PM Electronically Signed By:Jeri Regalado RN [facility] Progress Note CM Note CM Note Notes: CM spoke w/ Dr. Hatfield regarding d/c POC. Pts o2 level remain high. DC date unclear at this time. Pt will most likely d/c with [facility] and [facility] - 24hr supervision. Updates sent to [facility]. CM to follow. Plan: [facility] and [facility] Date Signed: 08/03/2017 03:57 PM Electronically Signed By:FROY Hill [facility] Progress Note CM Note CM Note Notes: Spoke w/pt who had concerns that CM had not come to speak with her. Pt will likely discharge today with [facility] that provides 24hr care and [facility] [employer] Wheels. Pt asked CM if insurance can pay for homecare, CM advised pt that Medicare will cover skilled homecare but not [facility] which is considered "non skilled". Pt verbalizes understanding. Dtr will come to pick pt up, [facility] notified, [facility] set up, and patient to call [facility]. Date Signed: 08/04/2017 12:20 PM Electronically Signed By:Trina Sotelo RN Case Management Discharge Plan Note Case Management Discharge Discharge Order Complete? Answers: Yes Patient to Obtain Answers: Independently Medications Transportation Arranged Answers: Family/Friends Faxed Final Orders Answers: Yes Family Notified Answers: Yes Discharge Comments Notes: D/bev DE PAZ, final orders faxed. John at [facility] notified, and pt set up with [facility] to start on Wednesday. Date Signed: 08/04/2017 03:21 PM Electronically Signed By:Trina Sotelo RN Intervention Information Intervention Type:*IM-Signed Date of Service:08/04/2017 04:18 PM Patient Type:Inpatient Staff Member:Heidy Kenney Hours: Discipline: Severity: Comment:
== END 2017-08-04 16:37 | disposition home health service (06) | DRG 168 ==
LOC: EDUNIT# → F3E 21:57 → OBSVTOIN 07-25 08:30
PROVIDERS: ADMIT Internal Medicine; ATTEND Internal Medicine
PROC: 0B9G8ZX Drainage of Left Upper Lung Lobe, Via Natural or Artificial Opening Endoscopic, Diagnostic (ICD-10-PCS; principal; 2017-07-29 07:30)
DX: J96.21 Acute and chronic respiratory failure with hypoxia (principal); J84.89 Other specified interstitial pulmonary diseases; E83.52 Hypercalcemia; G62.9 Polyneuropathy, unspecified; F41.8 Other specified anxiety disorders; R26.9 Unspecified abnormalities of gait and mobility; E78.5 Hyperlipidemia, unspecified; I10 Essential (primary) hypertension; Z99.81 Dependence on supplemental oxygen; Z91.81 History of falling; Z66 Do not resuscitate; Z79.52 Long term (current) use of systemic steroids; Z87.891 Personal history of nicotine dependence
CPT/HCPCS: 82164-90; 82397-90; 83516-90; 83520-90; 97110-GP; 97116-GP; 97161-GP; 97166-GO; 97530-GO; 97530-GP; 97535-GO; G0378; G8978-GP-CJ; G8979-GP-CI; G8987-GO-CJ; G8988-GO-CI; J1650; J1940; J2250; J3010; J7512; J7613

== ENCOUNTER 2018-07-03 05:24 | Inpatient (IN) | payer OTHER, BC ==
[2018-07-03] MEDS ORDERED: NS 1,000 ML IV ONE ×2 (05:27→06:20)
[2018-07-03 05:45] LABS: PLATELET COUNT 252 10^3/uL (150-400)
[2018-07-03] MEDS ORDERED: LORazepam 2 MG/ML INJ IVP ONE (06:05)
[2018-07-03] MEDS ORDERED: ACETAMINOPHEN 500 MG TAB PO ONE (06:05)
--- NOTE | 2018-07-03 06:13 | EDPHY ---
H & P Stated Complaint: cough and SOB Source: Patient, Old records Exam Limitations: No limitations - Personal History Tetanus Vaccine Date: 2008 - Medical/Surgical History Hx Asthma: No Hx Chronic Respiratory Disease: Yes Hx Diabetes: No Hx Cardiac Disease: No Hx Renal Disease: No Hx Cirrhosis: No Hx Alcoholism: Yes Hx HIV/AIDS: No Hx Splenectomy or Spleen Trauma: No Other PMH: pulmonary fibrosis, lung disease, chronic back pain, depression, neuropathy, shingles - Social History Smoking Status: Former smoker Time Seen by Provider: 07/03/18 05:25 HPI/ROS: HPI The patient presents with cough and shortness of breath. She is brought in by ambulance from her home. She has a longstanding history of interstitial fibrosis and is followed at [facility] for this. She usually wears 3 L of oxygen while at rest and 6-8 L of oxygen when she is active. Over the last several days she has developed a cough which became worse over the last 2 days, now productive of a whitish sputum associated with sore throat and vomiting. She developed a fever last night. She was not able to sleep for much of the night because of her symptoms. She called 911. Paramedics gave her DuoNeb, Solu-Medrol, Zofran. She has a MOST form with her from March of 2018 stating that she is comfort measures only. She is here with her friend who is a nurse. REVIEW OF SYSTEMS 10 systems were reviewed and negative with the exception of the elements mentioned in the history of present illness. PMHx: Interstitial pulmonary fibrosis, followed at [facility], on chronic oxygen therapy, history of depression Soc Hx: Lives at home, has [facility] that provides in-home care for her every day PHYSICAL General Appearance: Alert, anxious and tearful Eyes: Pupils equal and round no pallor or injection ENT, Mouth: Mucous membranes moist Respiratory: There are no retractions, breath sounds are diminished in all lung prater Cardiovascular: Tachycardic rate and regular rhythm Gastrointestinal: Abdomen is soft and non-tender, no masses, bowel sounds normal Neurological: A&O, moves all extremities Skin: Warm and dry, no rashes Musculoskeletal: Neck is supple non tender Extremities: symmetrical, full range of motion Psychiatric: Patient is oriented X 3, there is no agitation (Riguzzi,Farzaneh) Constitutional: Initial Vital Signs Temperature (C) 39.4 C H 07/03/18 05:28 Heart Rate 111 H 07/03/18 05:28 Respiratory Rate 24 H 07/03/18 05:28 Blood Pressure 150/124 H 07/03/18 05:28 O2 Sat (%) 90 L 07/03/18 05:28 O2 Delivery Mode Nasal Cannula O2 (L/minute) 3 Allergies/Adverse Reactions: No Known Allergies Allergy (Unverified 07/03/18 05:28) Home Medications: Medication Instructions Recorded Cholecalciferol Vit D3 [Vitamin D3 1,000 units PO DAILY 04/12/12 (*)] Lisinopril [Zestril 10 mg (*)] 10 mg PO DAILY@12 04/12/12 Multivitamins [Multivitamin (*)] 1 each PO DAILY 04/12/12 ALPRAZolam [Xanax 1 MG (*)] 1 mg PO Q12H PRN 12/22/16 PARoxetine HCL [Paxil 20mg (*)] 20 mg PO DAILY@12/22/16 buPROPion XL [Wellbutrin 150mg XL] 150 mg PO DAILY@12/22/16 lamoTRIgine [LamICTAL 100 MG (*)] 100 mg PO DAILY 02/19/17 Aspirin EC [Aspirin EC 81 mg (*)] 81 mg PO DAILY 07/08/17 Calcium Carbonate [Oyster Shell 1,250 mg PO DAILY 07/08/17 Calcium 500 mg (*)] [place]-3 Fatty Acids [Fish Oil 1000 1,000 mg PO DAILY 07/08/17 mg (*)] traZODone [traZODONE 50MG (*)] 50 mg PO HS 07/08/17 Hydrocodone/Acetaminophen 1 each PO Q6 PRN 07/24/17 [Hydrocodone-Acetamin 5-325 mg] Mycophenolate Mofetil [Cellcept] 1,000 mg PO BID 07/24/17 amLODIPine BESYLATE [Norvasc 2.5 2.5 mg PO DAILY #30 tab 08/04/17 mg (*)] predniSONE 40 mg PO DAILY tablet 08/04/17 Lorazepam 01/10/18 Pregabalin [Lyrica 75mg (*)] 75 mg PO BID #14 cap 01/10/18 Sulfamethox/Tmp 01/10/18 morphINE 08/06/18 Oseltamivir Phosphate [Tamiflu] 75 mg PO BID 5 Days capsule 07/03/18 Medical Decision Making - Diagnostics Imaging: I viewed and interpreted images myself - Diagnostics Imaging Results: Chest x-ray two view shows no clear infiltrate, interpreted by me, radiology interpretation is pending. (Farzaneh Fernandez) Differential Diagnosis: This is an 78-year-old female with interstitial pulmonary fibrosis on chronic oxygen who presents from home with increasing cough, fever, shortness of breath , vomiting. Here, she is febrile, tachycardic, mildly hypoxic, unclear if different than her baseline. Differential diagnosis includes pneumonia, exacerbation of fibrosis due to underlying viral infection, influenza. Patient was given fluid bolus initially. Labs and chest x-ray were ordered. She requested medication for anxiety and I have given her a dose of Ativan given the goals for care are geared towards comfort. Chest x-ray was unremarkable. Patient has a very mild leukocytosis. Patient is positive for flu A. I have offered her admission to the hospital, however she has declined. She said that she never wants to be admitted to the hospital. The patient's daughter is in route to the emergency department. Once she arrives the patient, her friend, daughter will discuss what is going on and decide how to proceed. (Farzaneh Fernandez) Other Provider: Patient signed out to me at 0700. At 0800 the patient's daughter has arrived and has convinced the patient that she should be admitted to the hospital. She has been accepted by the hospitalist service. (Sarmad Weaver) - Data Points Laboratory Results: Laboratory Results 07/03/18 05:30 07/03/18 05:30 07/03/18 07/03/18 07/03/18 06:00 05:40 05:30 WBC RBC Hgb Hct MCV MCH MCHC RDW Plt Count MPV Neut % (Auto) Lymph % (Auto) Ritchie % (Auto) Eos % (Auto) Baso % (Auto) Nucleat RBC Rel Count Absolute Neuts (auto) Absolute Lymphs (auto) Absolute Monos (auto) Absolute Eos (auto) Absolute Basos (auto) Absolute Nucleated RBC Immature Gran % Immature Gran # VBG Lactic Acid 1.4 mmol/L mmol/L (0.7-2.1) Sodium 138 mEq/L mEq/L (135-145) Potassium 4.2 mEq/L mEq/L (3.5-5.2) Chloride 108 mEq/L mEq/L (97-110) Carbon Dioxide 20 mEq/l L mEq/l (22-31) Anion Gap 10 mEq/L mEq/L (6-14) BUN 26 mg/dL H mg/dL (7-23) Creatinine 1.2 mg/dL H mg/dL (0.6-1.0) Estimated GFR 43 Glucose 150 mg/dL H mg/dL (70-100) Calcium 8.9 mg/dL mg/dL (8.5-10.4) Nasal Influenza A PCR FLU A DETECTED H (NEGATIVE) Nasal Influenza B PCR NEGATIVE FOR FLU B (NEGATIVE) 07/03/18 05:30 WBC 10.01 10^3/uL H 10^3/uL (3.80-9.50) RBC 3.68 10^6/uL L 10^6/uL (4.18-5.33) Hgb 11.4 g/dL L g/dL (12.6-16.3) Hct 35.6 % L % (38.0-47.0) MCV 96.7 fL fL (81.5-99.8) MCH 31.0 pg pg (27.9-34.1) MCHC 32.0 g/dL L g/dL (32.4-36.7) RDW 13.7 % % (11.5-15.2) Plt Count 252 10^3/uL 10^3/uL (150-400) MPV 9.1 fL fL (8.7-11.7) Neut % (Auto) 74.2 % % (39.3-74.2) Lymph % (Auto) 9.3 % L % (15.0-45.0) Ritchie % (Auto) 14.4 % H % (4.5-13.0) Eos % (Auto) 1.0 % % (0.6-7.6) Baso % (Auto) 0.3 % % (0.3-1.7) Nucleat RBC Rel Count 0.0 % % (0.0-0.2) Absolute Neuts (auto) 7.43 10^3/uL H 10^3/uL (1.70-6.50) Absolute Lymphs (auto) 0.93 10^3/uL L 10^3/uL (1.00-3.00) Absolute Monos (auto) 1.44 10^3/uL H 10^3/uL (0.30-0.80) Absolute Eos (auto) 0.10 10^3/uL 10^3/uL (0.03-0.40) Absolute Basos (auto) 0.03 10^3/uL 10^3/uL (0.02-0.10) Absolute Nucleated RBC 0.00 10^3/uL 10^3/uL (0-0.01) Immature Gran % 0.8 % % (0.0-1.1) Immature Gran # 0.08 10^3/uL 10^3/uL (0.00-0.10) VBG Lactic Acid Sodium Potassium Chloride Carbon Dioxide Anion Gap BUN Creatinine Estimated GFR Glucose Calcium Nasal Influenza A PCR Nasal Influenza B PCR Medications Given: Oseltamivir Phosphate (Tamiflu) 75 mg PO EDNOW ONE Stop: 07/03/18 07:13 Last Admin: 07/03/18 07:26 Dose: 75 mg Discontinued Medications Acetaminophen (Tylenol) 1,000 mg PO EDNOW ONE Stop: 07/03/18 06:06 Last Admin: 07/03/18 06:15 Dose: 1,000 mg Sodium Chloride (Ns) 1,000 mls @ 0 mls/hr IV EDNOW ONE; Wide Open PRN Reason: Protocol Stop: 07/03/18 05:28 Last Admin: 07/03/18 05:40 Dose: 1,000 mls Sodium Chloride (Ns) 1,000 mls @ 0 mls/hr IV EDNOW ONE; Wide Open PRN Reason: Protocol Stop: 07/03/18 06:21 Last Admin: 07/03/18 06:30 Dose: 1,000 mls Lorazepam (Ativan Injection) 1 mg IVP EDNOW ONE Stop: 07/03/18 06:06 Last Admin: 07/03/18 06:15 Dose: 1 mg Departure - Departure Disposition: [facility] Acute Clinical Impression: Influenza A, Cough Fever Qualifiers: Fever type: unspecified Qualified Code(s): R50.9 - Fever, unspecified Condition: Fair Instructions: Influenza (ED) Additional Instructions: Please return to the emergency department if your worse in any way or would like to be admitted to the hospital. Referrals: Sana Hendricks MD [[facility] Primary Care Provider] - As per Instructions Prescriptions: Oseltamivir Phosphate [Tamiflu] 75 mg PO BID 5 Days capsule
[2018-07-03] MEDS ORDERED: OSELTAMIVIR PHOSPHATE 75 MG CAP PO ONE (07:12)
[2018-07-03] MEDS ORDERED: OSELTAMIVIR PHOSPHATE 75 MG CAP ONE (07:24)
[2018-07-03] MEDS ORDERED: ONDANSETRON 4 MG/2 ML VIAL IVP PRN (08:26)
[2018-07-03] MEDS ORDERED: ONDANSETRON DISINTEGRATING 4 MG TAB PO PRN (08:26)
[2018-07-03] MEDS ORDERED: traMADol 50 MG TAB PO PRN (11:56)
[2018-07-03] MEDS ORDERED: morphINE 10 MG/0.5 ML UDSYR PO PRN (11:56)
[2018-07-03] MEDS ORDERED: predniSONE 10 MG TAB PO SCH (12:00)
[2018-07-03] MEDS ORDERED: predniSONE 5 MG TAB PO SCH (12:00)
[2018-07-03] MEDS ORDERED: BENZONATATE 100 MG CAP PO PRN (12:01)
[2018-07-03] MEDS ORDERED: NS 1,000 ML IV SCH (12:15)
--- NOTE | 2018-07-03 13:03 | GHP ---
DATE OF ADMISSION: 07/03/2018 CHIEF COMPLAINT: Influenza. PRIMARY ZIGZAG APPLIQUER: John Piedra at [facility]. PALLIATIVE CARE PHYSICIAN: Dr. Anita Antoine. HISTORY OF PRESENT ILLNESS: A pleasant 78-year-old female with ILD, chronic hypoxemic respiratory failure on 6-8 L, hypertension, presents with cough and shortness of breath. She was brought in from home by ambulance. Normally wears 3 L of oxygen with rest, 6-8 with activity. She has felt weaker over the past week. She developed a fever last night at home with vomiting. No diarrhea. Has a productive sputum that is thick and yellow. Has not had to increase her oxygen needs at home. No headache or myalgias. Flu swab positive for influenza A in the ER. She is followed by [facility] outpatient. REVIEW OF SYSTEMS: I completed a 10-point review of systems, negative except as noted in HPI. PAST MEDICAL HISTORY: ILD, chronic hypoxemic respiratory failure, 3 L at rest, 6-8 L with activity. Hypertension, hyperlipidemia, osteoporosis, depression, neuropathy. PAST SURGICAL HISTORY: Lumbar KATI, lumbar disk surgery, , hernia repair. SOCIAL HISTORY: She lives alone in apartment in [place]. Daughter lives here in town. No alcohol, tobacco, or illicits. FAMILY HISTORY: noncontributory. HOME MEDICATIONS: Senna. Omeprazole 10 mg daily. Hydrochlorothiazide 25 mg daily. Fosamax 70 mg Mondays. Tramadol 50 mg q.6 hours p.r.n. Tylenol as needed. Prednisone 10 mg daily, 5 mg every other day. Bactrim 1 tab Wednesday, Wednesday, Wednesday. Paroxetine 40 mg daily. [place]-3 multivitamin. Morphine 5 mg q.6 hours p.r.n. Ativan 0.5 to 1 mg twice daily p.r.n., Lamictal 100 mg twice daily, lisinopril 20 daily, vitamin D3, Wellbutrin 150 XL, Norvasc 2.5. Aspirin 81, Xanax 1 mg q.12 hours p.r.n., trazodone. PHYSICAL EXAMINATION: VITAL SIGNS: Temperature 38.7, blood pressure 142/75, heart rate 1-teens, respiration 18-22, 95% on 3 L. GENERAL: Obese female lying in bed, in no acute distress. She is eating lunch. HEENT: PERRLA. Mildly dry mucous membranes. CV: Tachy but regular. LUNGS: Diminished breath sounds throughout. Fine crackles. GI: Soft, mildly distended but nontender. Positive bowel sounds. : No Roberto. MUSCULOSKELETAL: Moving all 4 extremities. NEURO: 2 through 12 intact. PSYCH: Alert and oriented x3. LABORATORY DATA: WBC hemoglobin 11, hematocrit 35, platelets 252, lactate 1.4. Sodium 138, potassium 4.2, chloride 108, carbon dioxide 20, anion gap 10, BUN 26, creatinine 1.2 which is baseline. Glucose 150, calcium is 8.9. Influenza A positive. Chest x-ray is personally reviewed by me, cardiomegaly, interstitial lung changes. ASSESSMENT AND PLAN: 1. Sepsis: Fever, tachycardia, positive influenza. Supportive care with IV fluids, Tamiflu and cough suppressant. Blood cultures pending, negative lactate. 2. Chronic hypoxemic respiratory failure: Secondary to ILD. She is at her baseline oxygen needs. 3. Hypertension. Hold antihypertensives with acute illness. Re-add when tolerated. 4. Hyperlipidemia, not on statin. 5. Osteoporosis. Resume home medications. 6. Depression. Home medications. 7. ILD: She was hospitalized in the ICU last July. She is followed by Dr. Piedra at [facility] and Dr. Antoine with [facility] for symptom management. 8. Chronic kidney disease. Creatinine is at baseline. Gentle IV fluids. 9. Diet. Regular. 10. DVT prophylaxis SCDs. DISPOSITION: Patient warrants observation admission for supportive care with IV fluids, Tamiflu. May discharge tomorrow if clinically improved. /[id number]/MODL MTDD
[2018-07-03] MEDS: PARoxetine HCL 20 MG TAB PO SCH (13:09)
[2018-07-03] MEDS: OMEGA-3 FATTY ACIDS 1,000 MG CAP PO SCH (13:10)
[2018-07-03] MEDS: predniSONE 20 MG TAB PO SCH (13:10)
[2018-07-03] MEDS: buPROPion XL 150 MG TAB PO SCH (13:10)
[2018-07-03] MEDS: PANTOPRAZOLE SODIUM 40 MG TAB PO SCH (13:12)
[2018-07-03] MEDS: ACETAMINOPHEN 325 MG TAB PO PRN (17:25)
[2018-07-03] MEDS: OSELTAMIVIR PHOSPHATE 75 MG CAP PO SCH (17:25)
[2018-07-03] MEDS: ALPRAZolam 1 MG TAB PO PRN (17:29)
[2018-07-03] MEDS: guaiFENesin 600 MG TAB.ER PO SCH (19:54)
[2018-07-03] MEDS: lamoTRIgine 100 MG TAB PO SCH (19:54)
[2018-07-03] MEDS: SENNOSIDES/DOCUSATE SODIUM TAB PO SCH (19:55)
[2018-07-03] MEDS ORDERED: traZODone 50 MG TAB PO PRN (20:34)
[2018-07-04] MEDS ORDERED: ALENDRONATE SODIUM 70 MG TAB PO SCH (07:00)
[2018-07-04] MEDS: ACETAMINOPHEN 325 MG TAB PO PRN (07:59)
[2018-07-04] MEDS: SULFAMETHOX/TMP 800/160 MG 1 TAB PO SCH (08:00)
[2018-07-04] MEDS: OSELTAMIVIR PHOSPHATE 75 MG CAP PO SCH ×2 (08:00→17:24)
[2018-07-04] MEDS: guaiFENesin 600 MG TAB.ER PO SCH ×2 (08:02→20:02)
[2018-07-04] MEDS: PARoxetine HCL 20 MG TAB PO SCH (09:30)
[2018-07-04] MEDS: ASPIRIN EC 81 MG TAB PO SCH (09:30)
[2018-07-04] MEDS: CHOLECALCIFEROL VIT D3 1,000 UNITS TAB PO SCH (09:30)
[2018-07-04] MEDS: buPROPion XL 150 MG TAB PO SCH (09:30)
[2018-07-04] MEDS: SENNOSIDES/DOCUSATE SODIUM TAB PO SCH ×2 (09:30→20:02)
[2018-07-04] MEDS: lamoTRIgine 100 MG TAB PO SCH ×2 (09:30→20:02)
[2018-07-04] MEDS: OMEGA-3 FATTY ACIDS 1,000 MG CAP PO SCH (09:30)
[2018-07-04] MEDS: predniSONE 20 MG TAB PO SCH (09:30)
[2018-07-04] MEDS: PANTOPRAZOLE SODIUM 40 MG TAB PO SCH (09:31)
[2018-07-04] MEDS: MULTIVITAMINS 1 EACH TAB PO SCH (09:31)
--- NOTE | 2018-07-04 11:01 | ASMTCASEMG ---
Living Arrangements What is your living Answers: Alone arrangement? Who do you live with? Type Of Residence What kind of residence do Answers: Apartment you live in? Discharge Plan Comments Coordination Status Comments Notes: Patient is an 78yo female who is currently OBS status for sepsis, hypoxemic respiratory failure, hypertension, hyperlipidemia, osteoporosis, depression, ILD and chronic kidney disease. Patient here for IV fluids and tamiflu. She may discharge tomorrow if clinically improved. Likely patient will d/c independent. CM will follow. Date Signed: 07/04/2018 11:00 AM Electronically Signed By:Charleen Gutierres LCSW
--- NOTE | 2018-07-04 11:33 | HOSPPROG ---
Hospitalist Progress Note Assessment/Plan: 78 yo F w CHRF, ILD here w sepsis, influenza A influenza A: tamiflu ?secondary pneumonia: reasonable to treat discussed regarding goals of care acute on chronic HRF; worse today plan of care: DNR but does wish for treatment here ERICK: suspect pre renal repeat now sepsis: fever, source septic physiology has resolved Subjective: cxr w possible R sided infiltrate (interp by me) Objective: Vital Signs Temp Pulse Resp BP Pulse Ox 36.6 C 83 18 116/82 H 97 07/04/18 08:00 07/04/18 08:00 07/04/18 08:00 07/04/18 08:00 07/04/18 08:00 07/03/18 07/04/18 07/05/18 05:59 05:59 05:59 Intake Total 900 500 Output Total 800 400 Balance 100 100 - Physical Exam Constitutional: no apparent distress, appears nourished Eyes: PERRL, anicteric sclera Ears, Nose, Mouth, Throat: moist mucous membranes, hearing normal Cardiovascular: regular rate and rhythym, no murmur, rub, or gallop Respiratory: other (increased work of breathing, R>L rhonchi) Gastrointestinal: normoactive bowel sounds, soft, non-tender abdomen Genitourinary: no bladder fullness, No castellanos in urethra Skin: warm, normal color Musculoskeletal: full muscle strength Neurologic: AAOx3 ICD10 Worksheet Patient Problems: Problems Problem Status Onset Cough Acute Fever Acute Influenza A Acute Anxiety Active Back pain Acute ESBL (extended spectrum beta-lactamase) producing bacteria infection Acute ~ Hypoxemia Acute Interstitial lung disease Acute Shortness of breath Acute Strain of right hip Acute
[2018-07-04] MEDS: morphINE 10 MG/0.5 ML UDSYR PO PRN ×2 (11:39→18:35)
[2018-07-04] MEDS: AZITHROMYCIN IV 500 MG in NS 250 ML IV SCH (13:22)
[2018-07-04] MEDS: LORazepam 1 MG TAB PO PRN (18:35)
[2018-07-05] MEDS: ALPRAZolam 1 MG TAB PO PRN (02:13)
[2018-07-05] MEDS: PANTOPRAZOLE SODIUM 40 MG TAB PO SCH (08:23)
[2018-07-05] MEDS: morphINE 10 MG/0.5 ML UDSYR PO PRN ×2 (08:37→20:45)
--- NOTE | 2018-07-05 08:46 | PDMN ---
Medical Necessity Medical necessity: [facility] Sepsis: 78 yo w/ cough/SOB. Workup reveals sepsis w / +influenza. Initially OBS but pt requiring additional MN for ongoing management of sepsis and poss pneumonia. Remains on IV antibx. WBC went up overnight. BC pending. Acute on chronic hypoxic resp failure worsened per MD note. Hx ILD, chronic hypoxic resp fx 3L at rest, 6-8L w/ activity, HTN, HLD, osteoporosis, depression, neuropathy, lumbar disk surg. Change to IP status @1640 per MD order.
[2018-07-05] MEDS: AZITHROMYCIN IV 500 MG in NS 250 ML IV SCH (09:44)
[2018-07-05] MEDS: OMEGA-3 FATTY ACIDS 1,000 MG CAP PO SCH (09:49)
[2018-07-05] MEDS: lamoTRIgine 100 MG TAB PO SCH ×2 (09:50→20:47)
[2018-07-05] MEDS: ASPIRIN EC 81 MG TAB PO SCH (09:50)
[2018-07-05] MEDS: PARoxetine HCL 20 MG TAB PO SCH (09:50)
[2018-07-05] MEDS: buPROPion XL 150 MG TAB PO SCH (09:52)
[2018-07-05] MEDS: OSELTAMIVIR PHOSPHATE 75 MG CAP PO SCH ×2 (09:53→17:38)
[2018-07-05] MEDS: predniSONE 20 MG TAB PO SCH (09:53)
[2018-07-05] MEDS: CHOLECALCIFEROL VIT D3 1,000 UNITS TAB PO SCH (09:54)
[2018-07-05] MEDS: SENNOSIDES/DOCUSATE SODIUM TAB PO SCH ×2 (09:54→20:47)
[2018-07-05] MEDS: MULTIVITAMINS 1 EACH TAB PO SCH (09:55)
[2018-07-05] MEDS: guaiFENesin 600 MG TAB.ER PO SCH ×2 (09:55→20:47)
--- NOTE | 2018-07-05 10:36 | HOSPPROG ---
Hospitalist Progress Note Assessment/Plan: 78 yo F w CHRF, ILD here w sepsis, influenza A influenza A: tamiflu ?secondary pneumonia: reasonable to treat day 2/5 abx ceftriaxon/azithro for now acute on chronic HRF: 02 requirement improving plan of care: DNR but does wish for treatment here ERICK: improved sepsis: fever, source septic physiology has resolved proph: lmwh dispo: inpt Subjective: cough improved. remains dyspneic Objective: Vital Signs Temp Pulse Resp BP Pulse Ox 36.6 C 76 20 157/93 H 96 07/05/18 08:44 07/05/18 08:44 07/05/18 08:44 07/05/18 08:44 07/05/18 08:44 Laboratory Results 07/05/18 05:46 07/05/18 05:46 07/04/18 07/05/18 07/06/18 05:59 05:59 05:59 Intake Total 900 Output Total 1050 Balance -150 ICD10 Worksheet Patient Problems: Problems Problem Status Onset Cough Acute Fever Acute Influenza A Acute Anxiety Active Back pain Acute ESBL (extended spectrum beta-lactamase) producing bacteria infection Acute ~ Hypoxemia Acute Interstitial lung disease Acute Shortness of breath Acute Strain of right hip Acute
[2018-07-05] MEDS: ENOXAPARIN 30 MG/0.3 ML SYR SC SCH (11:40)
--- NOTE | 2018-07-05 11:59 | ASMTCMCOM ---
CM Note CM Note Notes: Patient is being followed by [facility]. Dr. Antoine checked in with the patient today via telephone. Ibis from [facility] was also here to check on the patient. Patient will likely discharge home with the support of her palliative team. CM available if further needs arise. Date Signed: 07/05/2018 11:59 AM Electronically Signed By:Charleen Gutierres LCSW
[2018-07-05] MEDS: LORazepam 1 MG TAB PO PRN (20:47)
[2018-07-06] MEDS: PANTOPRAZOLE SODIUM 40 MG TAB PO SCH (08:37)
[2018-07-06] MEDS: ACETAMINOPHEN 325 MG TAB PO PRN (08:51)
[2018-07-06] MEDS: morphINE 10 MG/0.5 ML UDSYR PO PRN (08:51)
[2018-07-06] MEDS: PARoxetine HCL 20 MG TAB PO SCH (09:24)
[2018-07-06] MEDS: predniSONE 20 MG TAB PO SCH (09:25)
[2018-07-06] MEDS: guaiFENesin 600 MG TAB.ER PO SCH (09:25)
[2018-07-06] MEDS: SULFAMETHOX/TMP 800/160 MG 1 TAB PO SCH (09:26)
[2018-07-06] MEDS: lamoTRIgine 100 MG TAB PO SCH (09:26)
[2018-07-06] MEDS: OSELTAMIVIR PHOSPHATE 75 MG CAP PO SCH (09:26)
[2018-07-06] MEDS: buPROPion XL 150 MG TAB PO SCH (09:26)
[2018-07-06] MEDS: CHOLECALCIFEROL VIT D3 1,000 UNITS TAB PO SCH (09:27)
[2018-07-06] MEDS: SENNOSIDES/DOCUSATE SODIUM TAB PO SCH (09:27)
[2018-07-06] MEDS: OMEGA-3 FATTY ACIDS 1,000 MG CAP PO SCH (09:27)
[2018-07-06] MEDS: ASPIRIN EC 81 MG TAB PO SCH (09:27)
[2018-07-06] MEDS: MULTIVITAMINS 1 EACH TAB PO SCH (09:27)
[2018-07-06] MEDS: AZITHROMYCIN IV 500 MG in NS 250 ML IV SCH (09:46)
[2018-07-06] MEDS: ENOXAPARIN 30 MG/0.3 ML SYR SC SCH (09:50)
--- NOTE | 2018-07-06 10:34 | HOSPPROG ---
Hospitalist Progress Note Assessment/Plan: 78 yo F w CHRF, ILD here w sepsis, influenza A influenza A: tamiflu ?secondary pneumonia: reasonable to treat day 3/5 abx ceftriaxon/azithro for now; LQ as outpt acute on chronic HRF: 02 requirement improving plan of care: DNR but does wish for treatment here ERICK: improved sepsis: fever, source septic physiology has resolved proph: lmwh dispo: inpt Subjective: on baseline level of 01. remains quite anxious about dc Objective: Vital Signs Temp Pulse Resp BP Pulse Ox 36.7 C 85 16 145/84 H 96 07/06/18 07:42 07/06/18 07:42 07/06/18 07:42 07/06/18 07:42 07/06/18 07:42 Laboratory Results 07/05/18 05:46 07/05/18 05:46 07/05/18 07/06/18 07/07/18 05:59 05:59 05:59 Intake Total 900 305 Output Total 1050 Balance -150 305 - Physical Exam Constitutional: no apparent distress, appears nourished Eyes: PERRL, anicteric sclera Ears, Nose, Mouth, Throat: moist mucous membranes, hearing normal Cardiovascular: regular rate and rhythym, no murmur, rub, or gallop Respiratory: other (good air movement, no wheeze) Gastrointestinal: normoactive bowel sounds, soft, non-tender abdomen Genitourinary: no bladder fullness, No castellanos in urethra Skin: warm, normal color Musculoskeletal: full muscle strength, no muscle tenderness Neurologic: AAOx3 Psychiatric: interacting appropriately ICD10 Worksheet Patient Problems: Problems Problem Status Onset Cough Acute Fever Acute Influenza A Acute Anxiety Active Back pain Acute ESBL (extended spectrum beta-lactamase) producing bacteria infection Acute ~ Hypoxemia Acute Interstitial lung disease Acute Shortness of breath Acute Strain of right hip Acute
[2018-07-06 12:08] VITALS: BP 152/91
--- NOTE | 2018-07-06 13:22 | GDS ---
[f rep st] DISCHARGE SUMMARY DISCHARGE DIAGNOSES: 1. Influenza A. 2. Possible secondary bacterial pneumonia. 3. Significant interstitial lung disease. 4. Chronic hypoxemic respiratory failure. 5. Anxiety. 6. Hypertension. 7. Acute kidney injury. HISTORY OF PRESENT ILLNESS: Please see admission history and physical by Dr. Maria G Back. The edna cool is a very pleasant 78-year-old female with ILD and chronic hypoxemic respiratory failure, who p resents with increased work of breathing. She also had cough and shortness of breath, found to have influenza A. Initial chest imaging showed possible spine sign or lower lobe density. Given her mini mal reserve from a pulmonary standpoint, she was initiated on community-acquired pneumonia coverage. The patient had negative blood cultures. She was afebrile while here. She did not have sepsis. Kenya cazares is discharged home to complete a course of levofloxacin as well as Tamiflu. /[id number]/MODL
--- NOTE | 2018-07-06 14:14 | ASMTDCNOTE ---
Case Management Discharge Discharge Order Complete? Answers: Yes Patient to Obtain Answers: Independently Medications Transportation Arranged Answers: Family/Friends Discharge Comments Notes: Patient is open with [facility]. She is discharging home independently today with [facility] support and follow-up. No further needs. Date Signed: 07/06/2018 02:12 PM Electronically Signed By:Charleen Gutierres LCSW
--- NOTE | 2018-07-06 14:19 | ASDISCHSUM ---
Discharge Information Plan Status:Home with No Needs Medically Cleared to Leave:07/05/2018 Discharge Date:07/05/2018 CM D/C Disposition:Home, Routine, Self-Care ADT D/C Disposition: Projected Discharge Date:07/06/2018 12:00 AM Transportation at D/C:Family Discharge Delay Reason: Follow-Up Date:07/06/2018 12:00 AM Discharge Slot:2 - 12:01 pm - 18:00 pm Final Diagnosis:Influenza, bacterial pneumonia Placement Information Patient Contact Information Contact Name:EZ Relationship:Daughter Address:[address] City:[place] Alternate Phone: [facility]/Zip Code:[place] [address] Email: Financial Information Financial Class:Medicare Primary Plan Desc:MEDICARE INPATIENT Primary Plan Number:[id number] Secondary Plan Desc:[facility] Secondary Plan Number:[id number] Assessment Information LACE LACE Length of stay for Answers: 2 days current admission Acuity / Level of Answers: Yes Care: Did the patient have an inpatient admission? Comorbidities - select Answers: Other Notes: influenza all that apply # of Emergency department Answers: 3-4 visits in the last 6 months Social determinants Answers: Mental health diagnosis (anxiety, depression, pers onality disorders, etc.) Score: 12 Date Signed: 07/06/2018 02:18 PM Electronically Signed By:Charleen Gutierres LCSW [facility] Initial CM Assessment Living Arrangements What is your living Answers: Alone arrangement? Who do you live with? Type Of Residence What kind of residence do Answers: Apartment you live in? Discharge Plan Comments Coordination Status Comments Notes: Patient is an 78yo female who is currently OBS status for sepsis, hypoxemic respiratory failure, hypertension, hyperlipidemia, osteoporosis, depression, ILD and chronic kidney disease. Patient here for IV fluids and tamiflu. She may discharge tomorrow if clinically improved. Likely patient will d/c independent. CM will follow. Date Signed: 07/04/2018 11:00 AM Electronically Signed By:Charleen Gutierres LCSW [facility] CM Progress Note CM Note CM Note Notes: Patient is being followed by [facility]. Dr. Antoine checked in with the patient today via telephone. Ibis from [facility] was also here to check on the patient. Patient will likely discharge home with the support of her palliative team. CM available if further needs arise. Date Signed: 07/05/2018 11:59 AM Electronically Signed By:Charleen Gutierres LCSW Case Management Discharge Plan Note Case Management Discharge Discharge Order Complete? Answers: Yes Patient to Obtain Answers: Independently Medications Transportation Arranged Answers: Family/Friends Discharge Comments Notes: Patient is open with [facility]. She is discharging home independently today with [facility] support and follow-up. No further needs. Date Signed: 07/06/2018 02:12 PM Electronically Signed By:Charleen Gutierres LCSW Intervention Information Intervention Type:*CANDELARIA-Signed Date of Service:07/04/2018 10:29 AM Patient Type:Observation Staff Member:Heidy Kenney Hours: Discipline: Severity: Comment:
== END 2018-07-06 14:58 | disposition home or self-care (01) | DRG 194 ==
LOC: EDUNIT# → F3E 10:07 → OBSVTOIN 07-04 16:40
PROVIDERS: ADMIT Internal Medicine; ATTEND Internal Medicine
DX: J10.08 Influenza due to other identified influenza virus with other specified pneumonia (principal); J84.9 Interstitial pulmonary disease, unspecified; N17.9 Acute kidney failure, unspecified; J96.11 Chronic respiratory failure with hypoxia; I13.0 Hypertensive heart and chronic kidney disease with heart failure and stage 1 through stage 4 chronic kidney disease, or unspecified chronic kidney disease; N18.9 Chronic kidney disease, unspecified; I50.9 Heart failure, unspecified; J44.9 Chronic obstructive pulmonary disease, unspecified; F41.9 Anxiety disorder, unspecified; E78.5 Hyperlipidemia, unspecified; M81.0 Age-related osteoporosis without current pathological fracture; Z87.891 Personal history of nicotine dependence; Z66 Do not resuscitate
CPT/HCPCS: 96374; G0378; J0456; J0696; J1650; J2060; J7512